=== PATIENT | female | born 1995 | race Caucasian/White ===

== ENCOUNTER → 2024-02-19 | Outpatient (CLI) | payer OTHER, SELFPAY ==
[2024-02-23 21:06] LABS: Chlamydia By Nucleic Acid AMP Negative (Negative); Gonococcus By Nucleic Acid AMP Negative (Negative)
[2024-02-29 10:06] LABS: HPV APTIMA, High Risk Negative (Negative)
== END | disposition home or self-care (01) ==
PROVIDERS: PCP Student in an Organized Health Care Education/Training Program; Referring Provider Advanced Practice Midwife; Visit Provider Advanced Practice Midwife
DX: O09.90 Supervision of high risk pregnancy, unspecified, unspecified trimester (principal); Z12.4 Encounter for screening for malignant neoplasm of cervix; Z78.9 Other specified health status; Z3A.00 Weeks of gestation of pregnancy not specified
CPT/HCPCS: 87086; 87088; 87491; 87591; 87624; 88175; G0145

== ENCOUNTER → 2024-03-19 | Outpatient (CLI) | payer OTHER, SELFPAY ==
[2024-03-19 12:37] LABS: Absolute Lymphocyte Count 1.72 X10^3/uL (0.83-4.51); Absolute Neutrophil Count 8.6 X10^3/uL (2.0-7.7); Basophil# 0.02 X10^3/uL; Basophil% 0.2 % (0-1); Eosinophil# 0.03 X10^3/uL; Eosinophils% 0.3 % (0-5); Hematocrit 38.6 % (37-47); Hemoglobin 12.7 g/dL (12.0-15.0); Lymphocyte # 1.72 X10^3/ul (0.83-4.51); Lymphocyte % 15.8 % (19-41); Mean Corp Hgb Conc 32.9 g/dL (32-36); Mean Corpuscular Volume 91.3 fL (81-99); Monocyte# 0.53 X10^3/uL; Monocyte% 4.9 % (0-10); NRBC Flagged by Analyzer 0 % (0-5); Neutrophil # 8.57 X10^3/uL (2.7-7.7); Neutrophil % 78.4 % (47-70); Platelet Count 278 K/mm3 (150-450); RBC Distribution Width CV 12.8 % (11.6-14.6); RBC Distribution Width SD 41.8 fl (35.1-43.9); Red Blood Count 4.23 M/mm3 (4.2-5.4); White Blood Count 10.9 K/mm3 (4.4-11.0)
[2024-03-19 13:47] LABS: HIV - WCH Non-Reactive (Nonreactive); Hepatitis B Surface Antigen Non-Reactive (Nonreactive); Hepatitis C Antibody Non-Reactive (Nonreactive); Rubella IgG Reactive (Nonreactive); Syphilis Antibodies Non-reactive
== END | disposition home or self-care (01) ==
LOC: BWCLAB 11:42
PROVIDERS: PCP Student in an Organized Health Care Education/Training Program; Referring Provider Advanced Practice Midwife; Visit Provider Advanced Practice Midwife
DX: O09.90 Supervision of high risk pregnancy, unspecified, unspecified trimester (principal); Z78.9 Other specified health status; Z3A.00 Weeks of gestation of pregnancy not specified

== ENCOUNTER → 2024-07-13 | Outpatient (CLI) | payer OTHER, SELFPAY ==
[2024-07-13 11:55] LABS: Absolute Lymphocyte Count 1.38 X10^3/uL (0.83-4.51); Absolute Neutrophil Count 8.8 X10^3/uL (2.0-7.7); Basophil# 0.04 X10^3/uL; Basophil% 0.3 % (0-1); Eosinophils% 0.9 % (0-5); Hematocrit 36.1 % (37-47); Hemoglobin 11.7 g/dL (12.0-15.0); Lymphocyte # 1.38 X10^3/ul (0.83-4.51); Lymphocyte % 12.1 % (19-41); Mean Corp Hgb Conc 32.4 g/dL (32-36); Mean Corpuscular Hgb 31.3 pg (27.0-32.0); Mean Corpuscular Volume 96.5 fL (81-99); Mean Platelet Vol. 10.3 fl (6.2-12.0); Monocyte# 0.85 X10^3/uL; Monocyte% 7.4 % (0-10); NRBC Flagged by Analyzer 0 % (0-5); Neutrophil # 8.81 X10^3/uL (2.7-7.7); Neutrophil % 77.1 % (47-70); Platelet Count 235 K/mm3 (150-450); RBC Distribution Width CV 13.1 % (11.6-14.6); RBC Distribution Width SD 46.5 fl (35.1-43.9); Red Blood Count 3.74 M/mm3 (4.2-5.4); White Blood Count 11.4 K/mm3 (4.4-11.0)
[2024-07-13 12:21] LABS: Glucose Challenge Gest 1H 50g 68 mg/dL (70-140); HIV Nonreactive (Nonreactive); Syphilis Antibodies Nonreactive (Nonreactive)
== END | disposition home or self-care (01) ==
PROVIDERS: Obstetrics & Gynecology; PCP Student in an Organized Health Care Education/Training Program; Referring Provider Nurse Practitioner Women's Health; Visit Provider Nurse Practitioner Women's Health
DX: O09.90 Supervision of high risk pregnancy, unspecified, unspecified trimester (principal); Z3A.00 Weeks of gestation of pregnancy not specified; Z13.1 Encounter for screening for diabetes mellitus
CPT/HCPCS: 36415; 82950; 85025; 86703; 86780

== ENCOUNTER → 2024-09-09 | Outpatient (CLI) | payer OTHER, SELFPAY | END | disposition home or self-care (01) | LOC: BWCLAB 11:18 | PROVIDERS: PCP Student in an Organized Health Care Education/Training Program; Visit Provider Obstetrics & Gynecology | DX: O09.93 Supervision of high risk pregnancy, unspecified, third trimester (principal); O26.843 Uterine size-date discrepancy, third trimester; Z3A.00 Weeks of gestation of pregnancy not specified | CPT/HCPCS: 87081; 87186 ==

== ENCOUNTER → 2024-09-13 | Outpatient (CLI) | payer OTHER, SELFPAY ==
--- NOTE | 2024-09-13 16:27 | US_ITS ---
PROCEDURE: OB LIMITED WITH BIOMETRICS 09/13/2024 REASON FOR EXAM: LARGE FOR GESTATIONAL AGE TECHNIQUE: OB LIMITED WITH BIOMETRICS COMPARISON: None FINDINGS LMP: December 26, 2023. Number: 1 Position: Vertex Placental Position: Anterior and not low-lying Placental Abnormalities: No evidence of previa. DIMENSIONS: Biparietal Diameter: 9.13 cm: 37 weeks and 0 days: 59 percentile./ Head Circumference: 33.89 cm: 39 weeks and 0 days: 63rd percentile/ Abdominal Circumference: 33.45 cm: 37 weeks and 2 days: 64 percentile/ Femur Length: 7.03 cm: 36 weeks and 0 days:/18 percentile ESTIMATED WEIGHT: 3118 g plus/-468 g ESTIMATED WEIGHT PERCENTILE (24+ weeks): 50 ESTIMATED GESTATIONAL AGE: Baseline: 37 weeks and 3 days By Ultrasound: 37 weeks and 3 days ESTIMATED DATE OF DELIVERY: Baseline: October 01, 2024 By Ultrasound: October 01, 2024 BIOPHYSICAL ASSESSMENT: Amniotic Fluid Volume: 3.5 cm Amniotic Fluid Index: 10.6 (8-24 cm normal range) Cardiac Motion: 153 beats per minute (average) Trunk and Limb Motion: Present. MATERNAL ANATOMY: Adnexa: Neither maternal ovary is successfully identified. US/OB Limited With Biometrics IMPRESSION: Single live intrauterine gestation with a mean gestational age of 37 weeks and 3 days. Reading Location: [id number]
== END | disposition home or self-care (01) ==
LOC: US 16:24
PROVIDERS: PCP Student in an Organized Health Care Education/Training Program; Referring Provider Obstetrics & Gynecology; Visit Provider Obstetrics & Gynecology
DX: O26.843 Uterine size-date discrepancy, third trimester (principal); Z3A.37 37 weeks gestation of pregnancy
CPT/HCPCS: 76816

== ENCOUNTER 2024-09-20 15:28 | Outpatient (CLI) | payer OTHER, SELFPAY ==
[2024-09-20 15:45] VITALS: BP 122/75; PULSE 95; RESP 12; TEMP 36.9; O2SAT 100
[2024-09-20 15:46] VITALS: PULSE 99; O2SAT 100
[2024-09-20 15:50] VITALS: BMI 26.9
--- NOTE | 2024-09-20 16:26 | OB.TRI.PN ---
Progress Notes Date of Service: 09/20/24 Progress Note: Patient presents for triage evaluation secondary to vaginal discharge at 38 weeks FHT: 130 Moderate variability reactive no decelerations category I tracing [place]: no Contractions Assessment and plan: ROM neg, Reactive NST, Slight cervical change from office exam last week, reassuring maternal and status patient discharged to home to follow-up in office. planned IOL for friday. See problem list details for additional plan information. Charges/Coding Multi Select Codes Visit Charges Office Visit/Consults: 85113 OV L3 Est 20min Urinary/Genital Urinary/Genital CPT Codes: 09991-86 non-stress test Interp Assessment & Plan (1) Vaginal discharge during : COMMENT: ROM neg (2) GBS (group B streptococcus) UTI complicating : COMMENT: treat in labor (3) Uterine size date discrepancy: COMMENT: 37w: EFW 50%, AC 64%. Nl (4) History of anxiety: COMMENT: stopped lexapro in November,. Stable (5) History of recurrent UTI (urinary tract infection): COMMENT: last UTI was December (6) Supervision of high-risk : QUALIFIERS: Trimester: third trimester Qualified Code(s): O09.93 - Supervision of high risk , unspecified, third trimester COMMENT: PRR, , PANKAJ 10/01/24, surprise DAVID Navarro, Sameer Joel (7) : QUALIFIERS: Weeks of gestation: 37 weeks Qualified Code(s): Z3A.37 - 37 weeks gestation of COMMENT: NIPT low risk, carrier and afp negative.
[2024-09-20 16:49] LABS: ROM Internal Control Test YES-OK TO RESULT pt. (Internal QC); ROM Patient Test Negative (Negative)
[2024-09-20 16:50] LABS: Record Kit Lot#, ROM+ K3358
== END 2024-09-20 17:05 | disposition home or self-care (01) ==
LOC: WPOUT 15:30 → WP 15:30
PROVIDERS: PCP Student in an Organized Health Care Education/Training Program; Referring Provider Advanced Practice Midwife; Visit Provider Advanced Practice Midwife
DX: O99.891 Other specified diseases and conditions complicating pregnancy (principal); N89.8 Other specified noninflammatory disorders of vagina; O99.820 Streptococcus B carrier state complicating pregnancy; O26.843 Uterine size-date discrepancy, third trimester; Z3A.38 38 weeks gestation of pregnancy
CPT/HCPCS: 59025; 59050; 84112; 99221; G0378

== ENCOUNTER 2024-09-24 01:35 | Inpatient (IN) | payer OTHER, SELFPAY ==
[2024-09-24] VITALS (55 sets, daily range): BP systolic 84–202; BP diastolic 44–139; PULSE 66–139; RESP 16–20; TEMP 36–36.6; O2SAT 82–100; BMI 26.8
--- OUTSIDE RECORDS SUMMARY | 2024-09-24 01:41 | XMS RPT_ITS | CCD ---
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 Role Phone Qamar Montana Unavailable Unavailab le QAMAR MONTANA Unavailable Unavailab le COPC JONATHAN, GENERIC Unavailable Unavailable AMEH, ONMA ADA Unavailable Unavailable QAMAR DYER AUGUST Unavailable Unavaila TYRELL Thompson Unavailable Unavailable Djiboutian, Shmuel H Unavailable Unavailable Djiboutian, Shmuel H Unavailable Unavailable Indira Edwina M Unavailable Unavailable Indira Edwina M Unavailable Unavailable Young, Blanca S Unavailable Unavailable Young, Blanca S Unavailable Unavailable Unavailable Primary Care Provider Unavaildaniel e Giselle MINERAL INDUSTRY TEACHER-Corinna MUNOZ Primary Care Provider Qamar Montana MD Primary Care Provider SUJEY DEL RIO Attending Unavailable QAMAR MONTANA Primary Care Unavailab corin Jackson MINERAL INDUSTRY TEACHER-Corinna MUNOZ Primary Care Provider CORINNA JACKSON Primary Care Unavailable SALBADOR QUINTANACY Wilber Referring Unavailable JAIMIE QUINTANA L Attending Unavailable Giselle MINERAL INDUSTRY TEACHER-Corinna MUNOZ Primary Care Provider Anil Oneal DO Primary Care Provider ANIL ONEAL A Attending Unavailable NANCIE ONEALDITH A Primary Care Unavailable CORINNA JACKSON Attending Unavailable CORINNA JACKSON Primary Care Unavailable SELF, SELF Referring Unavailable ANIL ONEAL Attending Unavailable NANCIE ONEALDITH Referring Unavailable CORINNA JACKSON Primary Care Unavailable AUNG NUNEZ Attending Unavailable CORINNA JACKSON Primary Care Unavailable SELF, SELF Referring Unavailable CORINNA JACKSON Primary Care Unavailable CORINNA JACKSON Attending Unavailable CORINNA JACKSON Referring Unavailable CORINNA JACKSON Attending Unavailable CORINNA JACKSON Referring Unavailable CORINNA JACKSON Primary Care Unavailable JAIMIE QUINTANA Attending Unavailable CORINNA JACKSON Referring Unavailable CORINNA JACKSON Primary Care Unavailable BELKYS COLORADO Attending Unavailable JAIMIE QUINTANA Referring Unavailable CORINNA JACKSON Primary Care Unavailable MARY CRAWFORD Attending Unavailab MARY Mcgraw Referring Unavailab corin AVILA PRIMARY CAREMD Primary Care Unavailable ONEAL DO, ANIL Primary Care Provider ONEAL DO, ANIL Referring Provider Dr. Mary Lundberg DO Attending Provider Zo Dyer CNM Attending Provider [phone] Zo Dyer CNM Referring Provider [phone] Estephanie MARINELLI, Dr. Jeffrey Attending Provider [place] METALSMITH APPRENTICE-C, Anila Attending Provider [phone] [place] METALSMITH APPRENTICE-C, Anila Referring Provider ONEAL DO, ANIL Primary Care Provider ONEAL DO, ANIL Referring Provider Zo Dyer CNM Attending Provider [phone] Dr. Mary Lundberg DO Attending Provider ONEAL DO, ANIL Primary Care Provider ONEAL DO, ANIL Referring Provider Dr. Mary Lundberg DO Referring Provider ONEAL DO, ANIL Primary Care Provider ONEAL DO, ANIL Referring Provider Zo Dyer CNM Attending Provider [phone] FLORENCIA ONEAL Primary Care WARREN Smith Attending WARREN Smith Admitting Zo Mccarty CNM Referring Provider [phone] Zo Dyer CNM Other Provider [phone] Estephanie MARINELLI, Dr. Jeffrey Attending Provider ONEAL, ANIL Primary Care Unavailable ONEAL, ANIL Referring Unavailable Anila Weir Attending Unavailable ONEAL, ANIL Primary Care Unavailable Zo Dyer Referring Unavailable Zo Dyer Attending Unavailable ONEAL, ANIL Primary Care Unavailable Rigo, Zo Referring Unavailable Rigo, Zo Attending Unavailable Zo Dyer Consulting Unavailable Zo Dyer Referring Unavailable Zo Dyer Attending Unavailable ONEAL, ANIL Primary Care Unavailable ONEAL, ANIL Referring Unavailable Zo Dyer Attending Unavailable ONEAL, ANIL Primary Care Unavailable ONEAL, ANIL Referring Unavailable Vande Velde, Mary Attending Unavailabl e ONEAL, ANIL Primary Care Unavailable Vande Velde, Mary Attending Unavailabl e ONEAL, ANIL Primary Care Unavailable Vande Velde, Mary Attending Unavailabl e Vande Velde, Mary Referring Unavailabl e ONEAL, ANIL Primary Care Unavailable ONEAL, ANIL Primary Care Unavailable ONEAL, ANIL Referring Unavailable Zo Dyer Attending Unavailable ONEAL, ANIL Primary Care Unavailable ONEAL, ANIL Referring Unavailable Zo Dyer Attending Unavailable Anila Weir Attending Unavailable ONEAL, ANIL Primary Care Unavailable Bianka Weiry Referring Unavailable Zo Dyer Referring Unavailable Zo Dyer Attending Unavailable ONEAL, ANIL Primary Care Unavailable ONEAL, ANIL Primary Care Unavailable Vande Velde, Mary Admitting Unavailabl e Vande Velde, Mary Referring Unavailabl e Vande Velde, Mary Attending Unavailabl e Vande Velde, Mary Attending Unavailabl e ONEAL, ANIL Primary Care Unavailable ONEAL, ANIL Referring Unavailable Vande Velde, Mary Attending Unavailabl e ONEAL, ANIL Primary Care Unavailable ONEAL, ANIL Referring Unavailable Vande Velde, Mary Attending Unavailabl e ONEAL, ANIL Primary Care Unavailable ONEAL, ANIL Referring Unavailable ONEAL, ANIL Referring Unavailable ONEAL, ANIL Primary Care Unavailable Rachele Hummel Attending Unavailable ONEAL, ANIL Primary Care Unavailable ONEAL, ANIL Referring Unavailable Vande Velde, Mary Attending Unavailabl e ONEAL, ANIL Primary Care Unavailable ONEAL, ANIL Referring Unavailable Rachele Hummel Attending Unavailable ONEAL, ANIL Primary Care Unavailable ANIL ONEAL Referring Unavailable Zo Dyer Attending Unavailable ANIL ONEAL Referring Unavailable ANIL ONEAL Primary Care Unavailable Zo Dyer Attending Unavailable Allergies Allergy Classification Reported Allergen(s) Allergy Type Date of Onset Reaction(s) Facility (15 sources) amoxicillin / clavulanate; Translations: [AMOXICILLIN-POT CLAVULANATE] Drug Allergy 05-02-2016 [facility] Work Phone: Medications Current Medications Medication Drug Class(es) Dates Sig (Normalized) Sig (Original) acetaminophen 325 mg / oxyCODONE hydrochloride 5 mg oral tablet (2 sources) Opioid Agonist Start: 01-23-2017 End: 01-30-2017 take 1 tablet by mouth every six hours oxyCODONE-acetami nophen (PERCOCET) 5-325 mg per tablet Take 1 (one) tablet by mouth every 6 (six) hours as needed for pain. 10 tablet 0 01/23/2017 01/30/2017 Active Start: 01-22-2017 End: 01-22-2017 take 1 tablet by mouth once, then take 1 tablet by mouth oxyCODONE-acetaminophen (PERCOCET) 5-325 mg per tablet 1 tablet 1 tablet, Oral, Once, 01/22/17 at 2000, For 1 dose Given 01/22/2017 20:03 EST 1 tablet Breast Pump device (11 sources) Start: 05-24-2024 Breast Pump de vice Active 0 .Route 1 0 May 24, 2024 12:00am As directed Start: 05-24-2024 Breast Pump de vice Active 0 .Route 1 May 24, 2024 12:00am As directed doxycycline hyclate 100 mg oral capsule (2 sources) Tetracycline-class Drug take 1 capsule by mouth twice daily doxycycline hyclate (VIBRAMYCIN) 100 MG capsule Take 100 mg by mouth 2 (two) times a day. 0 Active escitalopram 10 mg oral tablet (11 sources) Serotonin Reuptake Inhibitor Start: take 1 tablet by mouth once daily Escitalopram (Lexapro) 10 MG tablet Indications: Anxiety disorder, unspecified type Take 1 tablet by mouth daily. 30 tablet 11/20/2023 Active Start: 03-18-2023 End: 03-26-2023 take 1 tablet by mouth once daily Escitalopram (Lexapro) 10 MG tablet Indications: Anxiety disorder, unspecified type Take 1 tablet by mouth daily. 90 tablet 1 03/26/2023 Active Start: 10-23-2021 End: 12-07-2021 take 1 tablet by mouth once daily escitalopram oxalate (LEXAPRO) 10 MG tablet Take 1 (one) tablet (10 mg total) by mouth daily . 0 12/07/2021 Active nitrofurantoin, macrocrystals 25 mg / nitrofurantoin, monohydrate 75 mg oral capsule (1 source) Nitrofuran Antibacterial Start: 10-30-2022 End: 11-06-2022 take 1 capsule by mouth twice daily nitrofurantoin, macrocrystal-monohydrate, (Macrobid) 100 MG capsule Indications: Acute cystitis with hematuria Take 1 (one) capsule (100 mg total) by mouth 2 (two) times a day for 7 days . 14 capsule 0 10/30/2022 11/06/2022 Active Pnv No.[id number]-Rj-[id number]-Dha-E pa-Fish 400 mcg-35 mg- 25 mg-5 mg tablet,chewable (11 sources) Start: 02-06-2024 Pnv No.116-Hq-Gp3-Gwe-Gce-Kujc 400 mcg-35 mg- 25 mg-5 mg tablet,chewable Active {tbl} PO February 06, 2024 1:00am no115/iron/folic acid ( 19 ORAL) (1 source) take 1 tablet by mouth twice daily no115/iron/folic acid ( 19 ORAL) Take 1 tablet by mouth 2 times a day. Active Vit-Fe Fumarate-FA ( VITAMINS PO) (1 source) take 1 tablet by mouth twice daily Vit-Fe Fumarate-FA ( VITAMINS PO) Take 1 tablet by mouth Twice daily. Active sulfamethoxazole 800 mg / trimethoprim 160 mg oral tablet (1 source) Dihydrofolate Reductase Inhibitor Antibacterial, Sulfonamide Antimicrobial Start: 01-23-2017 End: 01-30-2017 take 1 tablet by mouth twice daily sulfamethoxazole-trimethopr im (BACTRIM DS,SEPTRA DS) 800-160 mg per tablet Take 1 (one) tablet by mouth 2 (two) times a day for 7 days. 14 tablet 0 01/23/2017 01/30/2017 Active Completed/Discontinued Medications Medication Drug Class(es) Dates Sig (Normalized) Sig (Original) dicyclomine hydrochloride 10 mg oral capsule (1 source) Anticholinergic End: 01-22-2017 take 1 capsule by mouth four times daily before mealtime dicyclomine (BENTYL) 10 MG capsule Take 10 mg by mouth 4 (four) times a day before meals and nightly. 01/22/2017 Discontinued hydrOXYzine hydrochloride 25 mg oral tablet (3 sources) Antihistamine Start: 10-23-2021 End: 03-26-2023 take 1 tablet by mouth three times daily as needed for anxiety hydrOXYzine HCl 25 MG tablet Indications: Anxiety disorder, unspecified type , Sleep disturbances Take 1 tablet by mouth 3 times daily as needed for Anxiety or Insomnia. 60 tablet 0 10/23/2021 03/26/2023 Discontinued (Patient Preference) hyoscyamine sulfate 0.125 mg oral tablet (1 source) End: 01-22-2017 take 1 tablet by mouth every four hours hyoscyamine (LEVSIN) 0.125 mg tablet Take 0.125 mg by mouth every 4 (four) hours as needed for cramping. 01/22/2017 Discontinued ibuprofen 800 mg oral tablet (2 sources) Nonsteroidal Anti-inflammatory Drug Start: 12-01-2020 End: 10-23-2021 take 1 tablet by mouth every six hours as needed ibuprofen 800 MG tablet Take 1 tablet by mouth every 6 hours as needed for Moderate Pain. 30 tablet 0 12/01/2020 10/23/2021 Discontinued (Patient Preference) Start: 01-22-2017 End: 01-23-2017 take 2 tablets by mouth every six hours ibuprofen (ADVIL,MOTRIN) tablet 800 mg 800 mg, Oral, Every 6 hours PRN, fever 100.4 F or greater, headaches, mild pain, Starting Fri01/22/17 at 2219, Give with Food Do Not Crush or Chew if administering orally due to bitter taste. May be crushed if given via tube. Given 01/23/2017 00:04 EST 800 mg naproxen 500 mg oral tablet (1 source) Nonsteroidal Anti-inflammatory Drug End: 01-22-2017 take 1 tablet by mouth twice daily at mealtime naproxen (NAPROSYN) 500 MG tablet Take 500 mg by mouth 2 (two) times a day with meals. 01/22/2017 Discontinued ondansetron 4 mg disintegrating oral tablet (1 source) Serotonin-3 Receptor Antagonist End: 01-22-2017 take 1 tablet by mouth every eight hours ondansetron (ZOFRAN-ODT) 4 MG disintegrating tablet Dissolve 4 mg on top of tongue every 8 (eight) hours as needed for nausea. 01/22/2017 Discontinued Vit-Fe Fumarate-FA ( VITAMIN PO) (4 sources) End: 12-07-2021 Vit-Fe Fumarate-FA ( VITAMIN PO) Take by mouth. Two gummies by mouth daily 0 12/07/2021 Discontinued (Therapy completed) Vit-Fe Fumarate-FA ( VITAMIN PO) Take by mouth. Two gummies by mouth daily 0 Active 200 ml vancomycin 5 mg/ml injection (2 sources) Glycopeptide Antibacterial Start: 01-23-2017 End: 01-23-2017 take 1000 mg intravenous route every twelve hours vancomycin (VANCOCIN) IVPB 1000 mg (premix) 1,000 mg, Intravenous, at 200 mL/hr, Every 12 hours, First dose on Fri01/23/17 at 0800, Indication: OTHER New Bag 01/23/2017 08:22 EST 1,000 mg 200 mL/hr Start: 01-22-2017 End: 01-23-2017 take 1000 mg intravenous route every hour vancomycin (VANCOCIN) IVPB 1000 mg (premix) 1,000 mg, Intravenous, at 200 mL/hr, Once, Fri01/22/17 at 1935, For 1 dose, Indication: Cellulitis Not Responding to Beta-lactams New Bag 01/22/2017 19:49 EST 1,000 mg 200 mL/hr Problems Active Problems Problem Classification Problem Date Documented Date Episodic/Chronic Anxiety disorders (5 sources) Anxiety disorder; Translations: [Anxiety disorder, unspecified] Onset: 02-22-2024 Chronic Bacterial infection; unspecified site (2 sources) Streptococcus, group B, as the cause of diseases classified elsewhere; Translations: [Streptococcus, group B, as the cause of diseases classified elsewhere] Onset: 09-20-2024 Episodic Cardiac dysrhythmias (8 sources) Palpitations; Translations: [Palpitations] Onset: 02-20-2024 02-20-2024 Episodic Fever of unknown origin (3 sources) Fever; Translations: [Fever, unspecified] Onset: 03-03-2024 03-03-2024 Episodic Genitourinary symptoms and ill-defined conditions (20 sources) Urinary symptoms ; Translations: [Unspecified symptoms and signs involving the genitourinary system] Onset: 10-30-2022 10-30-2022 Episodic Comment on above: last UTI was December Immunizations and screening for infectious disease (4 sources) Patient encounter status; Translations: [Encounter for immunization] Onset: 02-20-2024 02-22-2024 Episodic Nausea and vomiting (5 sources) Hyperemesis; Translations: [Intractable nausea and vomiting] Onset: 05-03-2016 05-03-2016 Episodic Other and unspecified benign neoplasm (1 source) Change in skin lesion; Translations: [Melanocytic nevi, unspecified] 09-09-2023 Episodic Other complications of (20 sources) High risk ; Translations: [Supervision of high risk , unspecified, unspecified trimester] 07-13-2024 Episodic Comment on above: PRR, , FRANCOISE /03/04 5, surprise PC Melanie, Sameer Joel Other complications of (13 sources) Uterine size for dates discrepancy; Translations: [Uterine size-date discrepancy, unspecified trimester] 09-09-2024 Episodic Comment on above: 37w: EFW 50%, AC 64% . Nl Other complications of (12 sources) Urinary tract infection in ; Translations: [Unspecified infection of urinary tract in , unspecified trimester] 09-13-2024 Episodic Comment on above: treat in labor Other complications of (5 sources) Vaginal discharge; Translations: [Other specified related conditions, unspecified trimester] 09-20-2024 Episodic Comment on above: ROM neg Other complications of (2 sources) Supervision of high risk , unspecified, third trimester; Translations: [Supervision of high risk , unspecified, third trimester] Onset: 09-20-2024 Episodic Other complications of (2 sources) Uterine size-date discrepancy, unspecified trimester; Translations: [Uterine size-date discrepancy, unspecified trimester] Onset: 09-20-2024 Episodic Other complications of (2 sources) Other specified related conditions, unspecified trimester; Translations: [Other specified related conditions, unspecified trimester] Onset: 09-20-2024 Episodic Other complications of (2 sources) Unspecified infection of urinary tract in , unspecified trimester; Translations: [Unspecified infection of urinary tract in , unspecified trimester] Onset: 09-20-2024 Episodic Other complications of (1 source) Supervision of high risk , unspecified, unspecified trimester; Translations: [Supervision of high risk , unspecified, unspecified trimester] Onset: 07-21-2024 Episodic Other female genital disorders (2 sources) Other specified noninflammatory disorders of vagina; Translations: [Other specified noninflammatory disorders of vagina] Onset: 09-20-2024 Episodic Other skin disorders (2 sources) Skin lesion; Translations: [Disorder of the skin and subcutaneous tissue, unspecified] Onset: 02-22-2024 02-22-2024 Episodic Other upper respiratory infections (3 sources) Pharyngitis; Translations: [Acute pharyngitis, unspecified] Onset: 03-03-2024 03-03-2024 Episodic Residual codes; unclassified (2 sources) Disturbance in sleep behavior; Translations: [Sleep disorder, unspecified] Episodic Residual codes; unclassified (2 sources) Gestation period, 8 weeks; Translations: [8 weeks gestation of ] Onset: 02-22-2024 02-22-2024 Episodic Residual codes; unclassified (12 sources) Immunization status unknown; Translations: [Other specified health status] 04-14-2024 Episodic Comment on above: vaccinated Residual codes; unclassified (1 source) 38 weeks gestation of ; Translations: [38 weeks gestation of ] Onset: 09-23-2024 Episodic Residual codes; unclassified (2 sources) 37 weeks gestation of ; Translations: [37 weeks gestation of ] Onset: 09-20-2024 Episodic Residual codes; unclassified (1 source) 36 weeks gestation of ; Translations: [36 weeks gestation of ] Onset: 09-09-2024 Episodic Residual codes; unclassified (1 source) 34 weeks gestation of ; Translations: [34 weeks gestation of ] Onset: 08-23-2024 Episodic Residual codes; unclassified (1 source) 32 weeks gestation of ; Translations: [32 weeks gestation of ] Onset: 08-12-2024 Episodic Residual codes; unclassified (1 source) 30 weeks gestation of ; Translations: [30 weeks gestation of ] Onset: 07-29-2024 Episodic Residual codes; unclassified (1 source) 28 weeks gestation of ; Translations: [28 weeks gestation of ] Onset: 07-13-2024 Episodic Screening and history of mental health and substance abuse codes (20 sources) H/O: anxiety state; Translations: [Personal history of other mental and behavioral disorders] Onset: 09-20-2024 07-13-2024 Episodic Comment on above: stopped lexapro in S eptember,. Stable Past or Other Problems Problem Classification Problem Date Documented Da te Episodic/Chronic Abdominal pain (10 sources) Generalized abdominal pain; Translations: [Unspecified abdominal pain] Onset: 05-03-2016 05-03-2016 Episodic Mood disorders (8 sources) Mood disorders Onset: 10-23-2021 Resolved: 10-23-2021 10-23-2021 Other and unspecified benign neoplasm (2 sources) Melanocytic nevi, unspecified; Translations: [Melanocytic nevi, unspecified] Onset: 09-09-2023 Episodic Other complications of ; puerperium affecting management of mother (8 sources) Delivery finding; Translations: [Complication of labor and delivery, unspecified] Onset: 11-29-2020 Resolved: 12-01-2020 12-01-2020 Episodic Other and delivery including normal (20 sources) Normal ; Translations: [Encounter for supervision of normal , unspecified, third trimester] Onset: 11-29-2020 Resolved: 10-23-2021 Episodic Comment on above: NIPT low risk, rachell er and afp negative. Other upper respiratory disease (2 sources) Abscess of nose; Translations: [Abscess, furuncle and carbuncle of nose] Onset: 01-22-2017 01-23-2017 Episodic Residual codes; unclassified (1 source) 12 weeks gestation of ; Translations: [12 weeks gestation of ] Onset: 03-19-2024 Episodic Residual codes; unclassified (1 source) Other specified health status; Translations: [Other specified health status] Onset: 03-19-2024 Episodic Residual codes; unclassified (1 source) Less than 8 weeks gestation of ; Translations: [Less than 8 weeks gestation of ] Onset: 02-19-2024 Episodic Skin and subcutaneous tissue infections (3 sources) Abscess; Translations: [Cutaneous abscess, unspecified] Onset: 01-22-2017 Episodic Unclassified (1 source) Decreased Movement Onset: 09-11-2024 Urinary tract infections (9 sources) Acute cystitis; Translations: [Acute cystitis with hematuria] Onset: 10-30-2022 10-30-2022 Episodic NEGATED: Highlighted row has been ruled out!Unclassified (2 sources) No known active problems 10-24-2020 Results Test Name Value Interpretation Reference Range Facility [facility] Office Visit Reporton 09-23-2024 [facility] Office Visit Report [facility] [address], [address] [place] [address] OFFICE VISIT Date of Service: 09/23/24 MR#: [id number] Acct: [id number] Name: AKOSUA NUNEZ Rep #: [id number] : 1995 Provider: Dr. Rachele cruz MD Age/Sex: 29/F Location: [facility] Status: Signed Intake Vital Signs 08/12/24 10:40 09/20/24 15:50 09/23/24 10:49 Height 5 ft 5 in 5 ft 5 in 5 ft 5 in Weight: 161 lb 8 oz BMI 26.9 BP 130/79 H Intake Visit Reasons: 38 WK OB Web Worker Required: No Is patient in pain?: No Allergies No Known Allergies Allergy (Verified 09/23/24 10:50) Medications ???Medication ???Instructions ???Recorded ???Confirmed ???Type PNV 153-FA 400 mcg-om3 35 mg-dha tab PO 02/06/24 09/23/24 History 25 mg-epa 5 mg-fish oil chew tablet breast pump #1 ea 05/24/24 09/23/24 Rx Last Menstrual Period: 12/26/23 Zika: Zika virus screening: Negative : No PFSH PFSH Surgical History H/O cystoscopy H/O breast augmentation Family History Grandfather Cancer Maternal- unsure what kind Heart disease Pacemaker- Maternal Mother Mitral valve disease Grandmother Mitral valve disease Maternal Social History adopted: No household members: spouse and children number of children: 2 current occupational status: employed 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 occupational exposures/hazards: No pets and animals: Yes pets and animals: dog(s) history of recent travel: No sexually active: Yes Smoking Status: Never smoker alcohol intake: never substance use type: does not use well-balanced diet: daily or most days caffeine: Yes Type: coffee Number of servings: 1 eating out: rarely or never during the past year weight has: remained stable what type of physical activity do you participate in: none kvng/church: [employer] seatbelt use: always do you feel safe at home: Yes 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 Date Name GA/Weeks Outcome Route Bth Weight Gen Labor Lgth Anesthesia Del Locatn Provider FOB 01/06/18 Melanie 40 live - full term 6#13oz Female none [facility] Dr. Edwina Maldonado 11/29/20 Sameer 38 live - full term 6#10oz Male epidural [facility] Dr. Devante Maldonado HPI 38 WK OB Details: AKOSUA NUNEZ is a 29 year old who presents for routine OB visit. OB Visit FRANCOISE Calculator Estimated Delivery Date Method Current WG Current Estimate 10/01/24 LMP (Certain) 38w 6d Expected Delivery Route/Plan Labor Preferences- CB/BF classes: no labor support person: Joel labor intervention preferences: [] pain management options preferred: limited cut cord/dad catch: yes : yes PP control planned: discussed discussed possible routes of delivery and associated risks: [] special requests: [] Specific Issue/Plans Covid status: [] Flu vaccine: [] Tdap vaccine: given Rhogam: NA LARC form signed: Yes Problem list reviewed and updated with the most current plan of care details and appropriate orders placed. Relevant counseling for the gestational age provided. Continue routine care and follow up unless otherwise noted in visit notes/problem list details Initial Weight: 131 lb Date -???-???-???-???-???- ???-???-???-???-???-? ??-???- EGA Weight BP Urine Prot -???-???-???-???-???- ???-???-???-???-???-? ??-???- Glucose FHR FuHt Pres Dilation -???-???-???-???-???- ???-???-???-???-???-? ??-???- Effaced St Visit Note 02/19/24 -???-???-???-???-???- ???-???-???-???-???-? ??-???- 7w 6d 131 lb (+0 oz) 83/63 -???-???-???-???-???- ???-???-???-???-???-? ??-???- 161 -???-???-???-???-???- ???-???-???-???-???-? ??-???- KW- CRL cons with dates. small MAMADOU noted. desires NIPT. 03/19/24 -???-???-???-???-???- ???-???-???-???-???-? ??-???- 12w 0d 135 lb (+4 lb) 121/75 Negative -???-???-???-???-???- ???-???-???-???-???-? ??-???- Negative 163 -???-???-???-???-???- ???-???-???-???-???-? ??-???- JV- CRL stil l consistent with LMP. plans to do NIPT today. does not want to know gender. 04/14/24 -???-???-???-???-???- ???-???-???-???-???-? ??-???- 15w 5d 136 lb 8 oz (+5 lb 8 oz) 115/76 Negative -???-???-???-???-???- ???-???-???-???-???-? ??-???- Negative 145 -???-???-???-???-???- ???-???-???-???-???-? ??-???- SM- no vb cr amping 05/17/24 -???-???-???-??? (more content not included)... Normal [facility] ([facility]) Rupture Of Membraneson 09-20-2024 ROM Negative Normal Negative [facility] Comment on above: Result Comment: Amni otic fluid not present indicates No Rupture of Membranes at time of specimen collection. Performed By: #### L 205.1000 ####[facility] [id number] [facility] [place], [address] OB Triage Progress Noteon OB Triage Progress Note [facility] Medical Records Department [address] [place] [address] OB Triage Progress Note 09/20/24 1626 MR#: [id number] Acct: [id number] Name: AKOSUA NUNEZ Rep #: [id number] : 1995 29 From: Zo Dyer CNM PCP: ANIL ONEAL DO Status:DEP CLI Y DOS: Location: WPOUT Progress Notes Date of Service: 09/20/24 Progress Note: Patient presents for triage evaluation secondary to vaginal discharge at 38 weeks FHT: 130 Moderate variability reactive no decelerations category I tracing Shubuta: no Contractions Assessment and plan: ROM neg, Reactive NST, Slight cervical change from office exam last week, reassuring maternal and status patient discharged to home to follow-up in office. planned IOL for friday. See problem list details for additional plan information. Charges/Coding Multi Select Codes Visit Charges Office Visit/Consults: 30696 OV L3 Est 20min Urinary/Genital Urinary/Genital CPT Codes: 04478-38 non-stress test Interp Assessment Plan (1) Vaginal discharge during : COMMENT: ROM neg (2) GBS (group B streptococcus) UTI complicating : COMMENT: treat in labor (3) Uterine size date discrepancy: COMMENT: 37w: EFW 50%, AC 64%. Nl (4) History of anxiety: COMMENT: stopped lexapro in November,. Stable (5) History of recurrent UTI (urinary tract infection): COMMENT: last UTI was December (6) Supervision of high-risk : QUALIFIERS: Trimester: third trimester Qualified Code(s): O09.93 - Supervision of high risk , unspecified, third trimester COMMENT: PRR, , FRANCOISE 10/01/24, surprise PC Melanie, Sameer Joel (7) : QUALIFIERS: Weeks of gestation: 37 weeks Qualified Code(s): Z3A.37 - 37 weeks gestation of COMMENT: NIPT low risk, carrier and afp negative. 09/20/24 1706 Date Zo Dyer CNM Cosigner Signature (if applicable): Date CC: DAVID Dyer; ANIL ONEAL DO Signed [facility] - Chemistry and C hemistry - challengeOrdered By: Mary Carreno on 09-16-2024 Glucose Ql (U) Negative [facility] - UrinalysisOrder ed By: Mary Carreno on 09-16-2024 Protein Ql (U) Negative [facility] [employer] Office Visit Reporton 09-16-2024 [employer] Office Visit Report [facility] [address], [address] [place] [address] OFFICE VISIT Date of Service: 09/16/24 MR#: [id number] Acct: [id number] Name: AKOSUA NUNEZ Rep #: [id number] : 1995 Provider: Dr. Mary Brown DO Age/Sex: 29/F Location: [facility] Status: Signed Intake Vital Signs 08/12/24 10:40 09/09/24 10:23 09/16/24 10:46 Height 5 ft 5 in 5 ft 5 in 5 ft 5 in Weight: 161 lb 2 oz BMI 26.8 BP 128/80 H Intake Visit Reasons: 37 WK OB Chief Complaint: 37wk OB Web Worker Required: No Is patient in pain?: No Allergies No Known Allergies Allergy (Verified 09/16/24 10:45) Medications ???Medication ???Instructions ???Recorded ???Confirmed ???Type PNV 153-FA 400 mcg-om3 35 mg-dha tab PO 02/06/24 09/16/24 History 25 mg-epa 5 mg-fish oil chew tablet breast pump #1 ea 05/24/24 09/16/24 Rx Last Menstrual Period: 12/26/23 : No PFSH PFSH Surgical History H/O cystoscopy H/O breast augmentation Family History Grandfather Cancer Maternal- unsure what kind Heart disease Pacemaker- Maternal Mother Mitral valve disease Grandmother Mitral valve disease Maternal Social History adopted: No household members: spouse and children number of children: 2 current occupational status: employed 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 occupational exposures/hazards: No pets and animals: Yes pets and animals: dog(s) history of recent travel: No sexually active: Yes Smoking Status: Never smoker alcohol intake: never substance use type: does not use well-balanced diet: daily or most days caffeine: Yes Type: coffee Number of servings: 1 eating out: rarely or never during the past year weight has: remained stable what type of physical activity do you participate in: none kvng/church: [employer] seatbelt use: always do you feel safe at home: Yes 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 Date Name GA/Weeks Outcome Route Bth Weight Infant Gen Labor Lgth Anesthesia Del Locatn Provider FOB 01/06/18 Melanie 40 live - full term 6#13oz Female none [facility] Dr. Edwina Adkins Joel 11/29/20 Sameer 38 live - full term 6#10oz Male epidural [facility] Dr. Devante Maldonado HPI 37 WK OB Details: AKOSUA NUNEZ is a 29 year old who presents for routine OB visit. OB Visit FRANCOISE Calculator Estimated Delivery Date Method Current WG Current Estimate 10/01/24 LMP (Certain) 37w 6d Expected Delivery Route/Plan Labor Preferences- CB/BF classes: no labor support person: Joel labor intervention preferences: [] pain management options preferred: limited cut cord/dad catch: yes : yes PP control planned: discussed discussed possible routes of delivery and associated risks: [] special requests: [] Specific Issue/Plans Covid status: [] Flu vaccine: [] Tdap vaccine: given Rhogam: NA LARC form signed: Yes Problem list reviewed and updated with the most current plan of care details and appropriate orders placed. Relevant counseling for the gestational age provided. Continue routine care and follow up unless otherwise noted in visit notes/problem list details Initial Weight: 131 lb Date -???-???-???-???-???- ???-???-???-???-???-? ??-???- EGA Weight BP Urine Prot -???-???-???-???-???- ???-???-???-???-???-? ??-???- Glucose FHR FuHt Pres Dilation -???-???-???-???-???- ???-???-???-???-???-? ??-???- Effaced St Visit Note 02/19/24 -???-???-???-???-???- ???-???-???-???-???-? ??-???- 7w 6d 131 lb (+0 oz) 83/63 -???-???-???-???-???- ???-???-???-???-???-? ??-???- 161 -???-???-???-???-???- ???-???-???-???-???-? ??-???- KW- CRL cons with dates. small MAMADOU noted. desires NIPT. 03/19/24 -???-???-???-???-???- ???-???-???-???-???-? ??-???- 12w 0d 135 lb (+4 lb) 121/75 Negative -???-???-???-???-???- ???-???-???-???-???-? ??-???- Negative 163 -???-???-???-???-???- ???-???-???-???-???-? ??-???- JV- CRL stil l consistent with LMP. plans to do NIPT today. does not want to know gender. 04/14/24 -???-???-???-???-???- ???-???-???-???-???-? ??-???- 15w 5d 136 lb 8 oz (+5 lb 8 oz) 115/76 Negative -???-???-???-???-???- ???-???-???-???-???-? ??-???- Negative 145 -???-???-???-???-???- ???-???-???-???-???-? ??-???- SM- no vb cr amping 05/17/24 -???-???-???-???-???- ???-???-???-?? (more content not included)... [facility] OB Limited With Biometricson 09-13-2024 OB Limited With Biometrics [facility] Imaging Services [address] [place], [place] [id number] OB Limited With Biometrics MR#: [id number] Acct: [id number] Name: AKOSUA NUNEZ Rep #: [id number] : 1995 F 29 From: Yuniel hyde MD PCP: ANIL ONEAL DO Status: [facility] Study: OB Limited With Biometrics Date of Exam: 09/13 Exam# [id number] Ordering Dr: Mary Lundberg DO PROCEDURE: OB LIMITED WITH BIOMETRICS 09/13/2024 REASON FOR EXAM: LARGE FOR GESTATIONAL AGE TECHNIQUE: OB LIMITED WITH BIOMETRICS COMPARISON: None FINDINGS LMP: December 26, 2023. Number: 1 Position: Vertex Placental Position: Anterior and not low-lying Placental Abnormalities: No evidence of previa. DIMENSIONS: Biparietal Diameter: 9.13 cm: 37 weeks and 0 days: 59 percentile./ Head Circumference: 33.89 cm: 39 weeks and 0 days: 63rd percentile/ Abdominal Circumference: 33.45 cm: 37 weeks and 2 days: 64 percentile/ Femur Length: 7.03 cm: 36 weeks and 0 days:/18 percentile ESTIMATED WEIGHT: 3118 g plus/-468 g ESTIMATED WEIGHT PERCENTILE (24+ weeks): 50 ESTIMATED GESTATIONAL AGE: Baseline: 37 weeks and 3 days By Ultrasound: 37 weeks and 3 days ESTIMATED DATE OF DELIVERY: Baseline: October 01, 2024 By Ultrasound: October 01, 2024 BIOPHYSICAL ASSESSMENT: Amniotic Fluid Volume: 3.5 cm Amniotic Fluid Index: 10.6 (8-24 cm normal range) Cardiac Motion: 153 beats per minute (average) Trunk and Limb Motion: Present. MATERNAL ANATOMY: Adnexa: Neither maternal ovary is successfully identified. US/OB Limited With Biometrics IMPRESSION: Single live intrauterine gestation with a mean gestational age of 37 weeks and 3 days. Reading Location: [id number] CC: Dr. 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 B) on 09-13-2024 REBECCA Rule out Beta Strep (Grp. B) Streptococcus agalactiae (B) Amount Growth 3+ Streptococcus agalactiae (B): REACTION Ampicillin Islt NOEL <=0.25 cefTRIAXone Islt NOEL <=0.12 S Clindamycin Islt NOEL <=0.25 S Clindamycin.induced Susc Islt NEG Linezolid Islt NOEL <=2 S Vancomycin Islt NOEL 0.5 S [facility] Comment on above: Performed By: #### M 100.3409 ####[facility] [id number] [place], [place], [address] Laboratory - Chemistry and C hemistry - challengeOrdered By: Mary Carreno on 09-09-2024 Glucose Ql (U) Negative [facility] - UrinalysisOrder ed By: Mary Carreno on 09-09-2024 Protein Ql (U) Negative [facility] [employer] Office Visit Reporton 09-09-2024 [employer] Office Visit Report [facility] [address], [address] [place] [address] OFFICE VISIT Date of Service: 09/09/24 MR#: [id number] Acct: [id number] Name: AKOSUA NUNEZ Rep #: [id number] : 1995 Provider: Dr. Mary Brown DO Age/Sex: 29/F [facility] Status: Signed Intake Vital Signs 07/13/24 09:12 08/23/24 09:29 09/09/24 10:19 09/09/24 10:23 Height 5 ft 5 in 5 ft 5 in 5 ft 5 in 5 ft 5 in Weight: 162 lb BMI 26.9 BP 118/81 H Intake Visit Reasons: 36wk ob Web Worker Required: No Is patient in pain?: No Allergies No Known Allergies Allergy (Verified 09/09/24 10:19) Medications ???Medication ???Instructions ???Recorded ???Confirmed ???Type PNV 153-FA 400 mcg-om3 35 mg-dha tab PO 02/06/24 09/09/24 History 25 mg-epa 5 mg-fish oil chew tablet breast pump #1 ea 05/24/24 09/09/24 Rx Last Menstrual Period: 12/26/23 Zika: Zika virus screening: Negative : No PFSH PFSH Surgical History H/O cystoscopy H/O breast augmentation Family History Grandfather Cancer Maternal- unsure what kind Heart disease Pacemaker- Maternal Mother Mitral valve disease Grandmother Mitral valve disease Maternal Social History adopted: No household members: spouse and children number of children: 2 current occupational status: employed 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 occupational exposures/hazards: No pets and animals: Yes pets and animals: dog(s) history of recent travel: No sexually active: Yes Smoking Status: Never smoker alcohol intake: never substance use type: does not use well-balanced diet: daily or most days caffeine: Yes Type: coffee Number of servings: 1 eating out: rarely or never during the past year weight has: remained stable what type of physical activity do you participate in: none kvng/church: [employer] seatbelt use: always do you feel safe at home: Yes 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 Date Name GA/Weeks Outcome Route Bth Weight Gen Labor Lgth Anesthesia Del Locatn Provider FOB 11/06/18 Melanie 40 live - full term 6#13oz Female none [facility] Dr. Edwina Maldonado 11/29/20 Sameer 38 live - full term 6#10oz Male epidural [facility] [place] [facility]. Devante Maldonado HPI 36wk ob Details: AKOSUA NUNEZ is a 29 year old who presents for routine OB visit. OB Visit FRANCOISE Calculator Estimated Delivery Date Method Current WG Current Estimate 10/01/24 LMP (Certain) 36w 6d Expected Delivery Route/Plan Labor Preferences- CB/BF classes: no labor support person: Joel labor intervention preferences: [] pain management options preferred: limited cut cord/dad catch: yes : yes PP control planned: discussed discussed possible routes of delivery and associated risks: [] special requests: [] Specific Issue/Plans Covid status: [] Flu vaccine: [] Tdap vaccine: given Rhogam: NA LARC form signed: Yes Problem list reviewed and updated with the most current plan of care details and appropriate orders placed. Relevant counseling for the gestational age provided. Continue routine care and follow up unless otherwise noted in visit notes/problem list details Initial Weight: 131 lb Date -???-???-???-???-???- ???-???-???-???-???-? ??-???- EGA Weight BP Urine Prot -???-???-???-???-???- ???-???-???-???-???-? ??-???- Glucose FHR FuHt Pres Dilation -???-???-???-???-???- ???-???-???-???-???-? ??-???- Effaced St Visit Note 02/19/24 -???-???-???-???-???- ???-???-???-???-???-? ??-???- 7w 6d 131 lb (+0 oz) 83/63 -???-???-???-???-???- ???-???-???-???-???-? ??-???- 161 -???-???-???-???-???- ???-???-???-???-???-? ??-???- KW- CRL cons with dates. small MAMADOU noted. desires NIPT. 03/19/24 -???-???-???-???-???- ???-???-???-???-???-? ??-???- 12w 0d 135 lb (+4 lb) 121/75 Negative -???-???-???-???-???- ???-???-???-???-???-? ??-???- Negative 163 -???-???-???-???-???- ???-???-???-???-???-? ??-???- JV- CRL stil l consistent with LMP. plans to do NIPT today. does not want to know gender. 04/14/24 -???-???-???-???-???- ???-???-???-???-???-? ??-???- 15w 5d 136 lb 8 oz (+5 lb 8 oz) 115/76 Negative -???-???-???-???-???- ???-???-???-???-???-? ??-???- Negative 145 -???-???-???-???-???- ???-???-???-???-???-? ??-???- SM- no vb cr amping 05/17 (more content not included)... [facility] Screening beta-hemolytic Str eptococcus cultureOrdered By: Mary Carreno on 09-09-2024 Beta-hemolytic Streptococcus culture Streptococcus agalactiae (B) Abnormal [facility] - Chemistry and C hemistry - challengeOrdered By: Mary Carreno on 08-23-2024 Glucose Ql (U) Negative [facility] - UrinalysisOrder ed By: Mary Carreno on 08-23-2024 Protein Ql (U) Negative [facility] [employer] Office Visit Reporton 08-23-2024 D[employer]ger Office Visit Report [facility] [address], [address] [place] [address] OFFICE VISIT Date of Service: 08/23/24 MR#: [id number] Acct: [id number] Name: AKOSUA NUNEZ Rep #: [id number] : 1995 Provider: Dr. Mary Brown DO Age/Sex: 29/F Location: [facility] Status: Signed Intake Vital Signs 07/13/24 08:36 07/13/24 09:12 08/12/24 10:40 08/23/24 09:29 08/23/24 09:29 Height 5 ft 5 in 5 ft 5 in 5 ft 5 in 5 ft 5 in 5 ft 5 in Weight: 161 lb 2 oz BMI 26.8 BP 117/77 Intake Visit Reasons: 34wk ob Web Worker Required: No Is patient in pain?: No Allergies No Known Allergies Allergy (Verified 08/23/24 09:29) Medications ???Medication ???Instructions ???Recorded ???Confirmed ???Type PNV 153-FA 400 mcg-om3 35 mg-dha tab PO 02/06/24 08/23/24 History 25 mg-epa 5 mg-fish oil chew tablet breast pump #1 ea 05/24/24 08/23/24 Rx Last Menstrual Period: 12/26/23 Zika: Zika virus screening: Negative : No PFSH PFSH Surgical History H/O cystoscopy H/O breast augmentation Family History Grandfather Cancer Maternal- unsure what kind Heart disease Pacemaker- Maternal Mother Mitral valve disease Grandmother Mitral valve disease Maternal Social History adopted: No household members: spouse and children number of children: 2 current occupational status: employed 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 occupational exposures/hazards: No pets and animals: Yes pets and animals: dog(s) history of recent travel: No sexually active: Yes Smoking Status: Never smoker alcohol intake: never substance use type: does not use well-balanced diet: daily or most days caffeine: Yes Type: coffee Number of servings: 1 eating out: rarely or never during the past year weight has: remained stable what type of physical activity do you participate in: none kvng/church: [employer] seatbelt use: always do you feel safe at home: Yes 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 Date Name GA/Weeks Outcome Route Bth Weight Infant Gen Labor Lgth Anesthesia Del Locatn Provider FOB 01/06/18 Melanie 40 live - full term 6#13oz Female none [facility] Dr. Edwina Maldonado 11/29/20 Sameer 38 live - full term 6#10oz Male epidural [facility] Dr. Devante Maldonado HPI 34wk ob Details: AKOSUA NUNEZ is a 29 year old who presents for routine OB visit. OB Visit FRANCOISE Calculator Estimated Delivery Date Method Current WG Current Estimate 10/01/24 LMP (Certain) 34w 3d Expected Delivery Route/Plan Labor Preferences- CB/BF classes: no labor support person: Joel labor intervention preferences: [] pain management options preferred: limited cut cord/dad catch: yes : yes PP control planned: discussed discussed possible routes of delivery and associated risks: [] special requests: [] Specific Issue/Plans Covid status: [] Flu vaccine: [] Tdap vaccine: given Rhogam: NA LARC form signed: Yes Problem list reviewed and updated with the most current plan of care details and appropriate orders placed. Relevant counseling for the gestational age provided. Continue routine care and follow up unless otherwise noted in visit notes/problem list details Initial Weight: 131 lb Date -???-???-???-???-???- ???-???-???-???-???-? ??-???- EGA Weight BP Urine Prot -???-???-???-???-???- ???-???-???-???-???-? ??-???- Glucose FHR FuHt Pres Dilation -???-???-???-???-???- ???-???-???-???-???-? ??-???- Effaced St Visit Note 02/19/24 -???-???-???-???-???- ???-???-???-???-???-? ??-???- 7w 6d 131 lb (+0 oz) 83/63 -???-???-???-???-???- ???-???-???-???-???-? ??-???- 161 -???-???-???-???-???- ???-???-???-???-???-? ??-???- KW- CRL cons with dates. small MAMADOU noted. desires NIPT. 03/19/24 -???-???-???-???-???- ???-???-???-???-???-? ??-???- 12w 0d 135 lb (+4 lb) 121/75 Negative -???-???-???-???-???- ???-???-???-???-???-? ??-???- Negative 163 -???-???-???-???-???- ???-???-???-???-???-? ??-???- JV- CRL stil l consistent with LMP. plans to do NIPT today. does not want to know gender. 04/14/24 -???-???-???-???-???- ???-???-???-???-???-? ??-???- 15w 5d 136 lb 8 oz (+5 lb 8 oz) 115/76 Negative -???-???-???-???-???- ???-???-???-???-???-? ??-???- Negative 145 -???-???-???-???-???- ???-???-???-???-???-? ??-?? (more content not included)... [facility] [employer] Office Visit Reporton 08-12-2024 D[employer] Office Visit Report [facility] [address], [address] [place] [address] OFFICE VISIT Date of Service: 08/12/24 MR#: [id number] Acct: [id number] Name: AKOSUA NUNEZ Rep #: [id number] : 1995 Provider: DAVID Martinez ams Age/Sex: 29/F Location[facility] [place] Status: Signed Intake Vital Signs 07/13/24 08:36 07/29/24 14:05 08/12/24 10:36 08/12/24 10:40 Height 5 ft 5 in 5 ft 5 in 5 ft 5 in 5 ft 5 in Weight: 157 lb 6 oz BMI 26.2 BP 109/74 Intake Visit Reasons: 32wk ob Web Worker Required: No Is patient in pain?: No Allergies No Known Allergies Allergy (Unverified 08/12/24 10:37) Medications ???Medication ???Instructions ???Recorded ???Confirmed ???Type PNV 153-FA 400 mcg-om3 35 mg-dha tab PO 02/06/24 08/12/24 History 25 mg-epa 5 mg-fish oil chew tablet breast pump #1 ea 05/24/24 08/12/24 Rx Last Menstrual Period: 12/26/23 Zika: Zika virus screening: Negative : No PFSH PFSH Surgical History H/O cystoscopy H/O breast augmentation Family History Grandfather Cancer Maternal- unsure what kind Heart disease Pacemaker- Maternal Mother Mitral valve disease Grandmother Mitral valve disease Maternal Social History adopted: No household members: spouse and children number of children: 2 current occupational status: employed 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 occupational exposures/hazards: No pets and animals: Yes pets and animals: dog(s) history of recent travel: No sexually active: Yes Smoking Status: Never smoker alcohol intake: never substance use type: does not use well-balanced diet: daily or most days caffeine: Yes Type: coffee Number of servings: 1 eating out: rarely or never during the past year weight has: remained stable what type of physical activity do you participate in: none kvng/church: [employer] seatbelt use: always do you feel safe at home: Yes 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 Date Name GA/Weeks Outcome Route Bth Weight Gen Labor Lgth Anesthesia Del Locatn Provider FOB 01/06/18 Melanie 40 live - full term 6#13oz Female none [facility] Dr. Edwina Maldonado 11/29/20 Sameer 38 live - full term 6#10oz Male epidural [facility] Dr. Devante Maldonado HPI 32wk ob Details: AKOSUA NUNEZ is a 29 year old who presents for routine OB visit. OB Visit FRANCOISE Calculator Estimated Delivery Date Method Current WG Current Estimate 10/01/24 LMP (Certain) 32w 6d Expected Delivery Route/Plan Labor Preferences- CB/BF classes: no labor support person: Joel labor intervention preferences: [] pain management options preferred: limited cut cord/dad catch: yes : yes PP control planned: discussed discussed possible routes of delivery and associated risks: [] special requests: [] Specific Issue/Plans Covid status: [] Flu vaccine: [] Tdap vaccine: given Rhogam: NA LARC form signed: Yes Problem list reviewed and updated with the most current plan of care details and appropriate orders placed. Relevant counseling for the gestational age provided. Continue routine care and follow up unless otherwise noted in visit notes/problem list details Initial Weight: 131 lb Date -???-???-???-???-???- ???-???-???-???-???-? ??-???- EGA Weight BP Urine Prot -???-???-???-???-???- ???-???-???-???-???-? ??-???- Glucose FHR FuHt Pres Dilation -???-???-???-???-???- ???-???-???-???-???-? ??-???- Effaced St Visit Note 02/19/24 -???-???-???-???-???- ???-???-???-???-???-? ??-???- 7w 6d 131 lb (+0 oz) 83/63 -???-???-???-???-???- ???-???-???-???-???-? ??-???- 161 -???-???-???-???-???- ???-???-???-???-???-? ??-???- KW- CRL cons with dates. small MAMADOU noted. desires NIPT. 03/19/24 -???-???-???-???-???- ???-???-???-???-???-? ??-???- 12w 0d 135 lb (+4 lb) 121/75 Negative -???-???-???-???-???- ???-???-???-???-???-? ??-???- Negative 163 -???-???-???-???-???- ???-???-???-???-???-? ??-???- JV- CRL stil l consistent with LMP. plans to do NIPT today. does not want to know gender. 04/14/24 -???-???-???-???-???- ???-???-???-???-???-? ??-???- 15w 5d 136 lb 8 oz (+5 lb 8 oz) 115/76 Negative -???-???-???-???-???- ???-???-???-???-???-? ??-???- Negative 145 -???-???-???-???-???- ???-???-???-???-???-? ??-???- SM- no vb cr amping 05/17/24 (more content not included)... [facility] - Chemistry and C hemistry - challengeOrdered By: Zo Dyer on 07-29-2024 Glucose Ql (U) Negative [facility] - UrinalysisOrder ed By: Zo Dyer on 07-29-2024 Protein Ql (U) [facility] [employer] Office Visit Reporton 07-29-2024 Dobby [employer]ger Office Visit Report [facility] [address], [address] [place] [address] OFFICE VISIT Date of Service: 07/29/24 MR#: [id number] Acct: [id number] Name: AKOSUA NUNEZ Rep #: [id number] : 1995 Provider: DAVID Martinez ams Age/Sex: 29/F Location: [facility] [place] Status: Signed Intake Vital Signs 05/17/24 09:30 07/13/24 09:12 07/29/24 14:05 Height 5 ft 5 in 5 ft 5 in Weight: 158 lb 2 oz BMI 26.3 BP 110/70 Intake Visit Reasons: 30 WK OB Chief Complaint: 30wk OB Web Worker Required: No Is patient in pain?: No Allergies No Known Allergies Allergy (Unverified 07/29/24 14:03) Medications ???Medication ???Instructions ???Recorded ???Confirmed ???Type PNV 153-FA 400 mcg-om3 35 mg-dha tab PO 02/06/24 07/29/24 History 25 mg-epa 5 mg-fish oil chew tablet breast pump #1 ea 05/24/24 07/29/24 Rx Last Menstrual Period: 12/26/23 Have you fallen in the past year?: No PFSH PFSH Surgical History H/O cystoscopy H/O breast augmentation Family History Grandfather Cancer Maternal- unsure what kind Heart disease Pacemaker- Maternal Mother Mitral valve disease Grandmother Mitral valve disease Maternal Social History adopted: No household members: spouse and children number of children: 2 current occupational status: employed 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 occupational exposures/hazards: No pets and animals: Yes pets and animals: dog(s) history of recent travel: No sexually active: Yes Smoking Status: Never smoker alcohol intake: never substance use type: does not use well-balanced diet: daily or most days caffeine: Yes Type: coffee Number of servings: 1 eating out: rarely or never during the past year weight has: remained stable what type of physical activity do you participate in: none kvng/church: [employer] seatbelt use: always do you feel safe at home: Yes 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 Date Name GA/Weeks Outcome Route Bth Weight Infant Gen Labor Lgth Anesthesia Del Locatn Provider ETIENNE 01/06/18 Melanie 40 live - full term 6#13oz Female none [facility] Dr. dEwina Maldonado 11/29/20 Sameer 38 live - full term 6#10oz Male epidural [facility] [place] [facility]. Devante Maldonado HPI 30 WK OB Details: AKOSUA NUNEZ is a 29 year old who presents for routine OB visit. OB Visit FRANCOISE Calculator Estimated Delivery Date Method Current WG Current Estimate 10/01/24 LMP (Certain) 30w 6d Expected Delivery Route/Plan Labor Preferences- CB/BF classes: no labor support person: Joel labor intervention preferences: [] pain management options preferred: limited cut cord/dad catch: yes : yes PP control planned: discussed discussed possible routes of delivery and associated risks: [] special requests: [] Specific Issue/Plans Covid status: [] Flu vaccine: [] Tdap vaccine: given Rhogam: NA LARC form signed: Yes Problem list reviewed and updated with the most current plan of care details and appropriate orders placed. Relevant counseling for the gestational age provided. Continue routine care and follow up unless otherwise noted in visit notes/problem list details Initial Weight: 131 lb Date -???-???-???-???-???- ???-???-???-???-???-? ??-???- EGA Weight BP Urine Prot -???-???-???-???-???- ???-???-???-???-???-? ??-???- Glucose FHR FuHt Pres Dilation -???-???-???-???-???- ???-???-???-???-???-? ??-???- Effaced St Visit Note 02/19/24 -???-???-???-???-???- ???-???-???-???-???-? ??-???- 7w 6d 131 lb (+0 oz) 83/63 -???-???-???-???-???- ???-???-???-???-???-? ??-???- 161 -???-???-???-???-???- ???-???-???-???-???-? ??-???- KW- CRL cons with dates. small MAMADOU noted. desires NIPT. 03/19/24 -???-???-???-???-???- ???-???-???-???-???-? ??-???- 12w 0d 135 lb (+4 lb) 121/75 Negative -???-???-???-???-???- ???-???-???-???-???-? ??-???- Negative 163 -???-???-???-???-???- ???-???-???-???-???-? ??-???- JV- CRL stil l consistent with LMP. plans to do NIPT today. does not want to know gender. 04/14/24 -???-???-???-???-???- ???-???-???-???-???-? ??-???- 15w 5d 136 lb 8 oz (+5 lb 8 oz) 115/76 Negative -???-???-???-???-???- ???-???-???-???-???-? ??-???- Negative 145 -???-???-???-???-???- ???-???-???-???-???-? ??-???- SM- no vb cr amping 05/17/24 -???-???-???-???-???- ???-???-???-?? (more content not included)... [facility] Absolute lymphocyte countOrd ered By: Mary Snowwillard on 07-13-2024 Lymphocytes Auto (Unsp spec) [#/Vol] 1.38 10*3/uL 0.83-4.51 [facility] Absolute neutrophil countOrd ered By: Mary Snowwillard on 07-13-2024 Neutrophils (Bld) [#/Vol] 8.8 10*3/uL High 2.0-7.7 [facility] Automated lymphocyte count a s percentage of total leukocytesOrdered By: Mary Snowwillard on 07-13-2024 Lymphocytes/100 WBC Auto (Unsp spec) 12.1 % Low 19-41 [facility] Basophil percentageOrdered B y: Mary Snowwillard on 07-13-2024 Basophils/100 WBC (Bld) 0.3 % 0-1 [facility] CBC W/Diff, Automatedon 07-01 Absolute Lymph 1.38 X10 3/uL Normal 0.83-4.51 [facility] Comment on above: Performed By: #### L 100.0100, L509.8002, L501.0250, L3890.6006 ####[facility] [address] [place], [address] Absolute Neut 8.8 X10 3/uL High 2.0-7.7 [facility] Comment on above: Performed By: #### L 100.0100, L509.8002, L501.0250, L3890.6006 ####[facility] [address] [place], [address] Basophils/100 WBC (Bld) 0.3 % Normal 0-1 [facility] Comment on above: Performed By: #### L 100.0100, L509.8002, L501.0250, L3890.6006 ####[facility] [address] [place], [address] Eosinophils/100 WBC (Bld) 0.9 % Normal 0-5 [facility] Comment on above: Performed By: #### L 100.0100, L509.8002, L501.0250, L3890.6006 ####[facility] [address] [place], [address] Erythrocyte distribution width (RBC) [Ratio] 13.1 % Normal 11.6-14.6 [facility] Comment on above: Performed By: #### L 100.0100, L509.8002, L501.0250, L3890.6006 ####[facility] [address] [place], [address] Hematocrit (Bld) [Volume fraction] 36.1 % Low 37-47 [facility] Comment on above: Performed By: #### L 100.0100, L509.8002, L501.0250, L3890.6006 ####[facility] [address] [place], [address] Hemoglobin (Bld) [Mass/Vol] 11.7 g/dL Low 12.0-15.0 [facility] Comment on above: Performed By: #### L 100.0100, L509.8002, L501.0250, L3890.6006 ####[facility] [address] [place], [address] IG% 2.200 High 0.0-0.9 [facility] Comment on above: Result Comment: IG% - Immature Granulocytes (promyelocytes, myelocytes and metamyelocytes) > 1% indicates that a LEFT SHIFT is Present. Performed By: #### L 100.0100, L509.8002, L501.0250, L3890.6006 ####[facility] [address] [place], [address] Lymphocytes/100 WBC (Bld) 12.1 % Low 19-41 [facility] Comment on above: Performed By: #### L 100.0100, L509.8002, L501.0250, L3890.6006 ####[facility] [address] [place], [address] MCH (RBC) [Entitic mass] 31.3 pg Normal 27.0-32.0 [facility] Comment on above: Performed By: #### L 100.0100, L509.8002, L501.0250, L3890.6006 ####[facility] [address] [place], [address] MCHC (RBC) [Mass/Vol] 32.4 g/dL Normal 32-36 [facility] Comment on above: Performed By: #### L 100.0100, L509.8002, L501.0250, L3890.6006 ####[facility] [address] [place], [address] MCV (RBC) [Entitic vol] 96.5 fL Normal 81-99 [facility] Comment on above: Performed By: #### L 100.0100, L509.8002, L501.0250, L3890.6006 ####[facility] [address] [place], [address] Monocytes/100 WBC (Bld) 7.4 % Normal 0-10 [facility] Comment on above: Performed By: #### L 100.0100, L509.8002, L501.0250, L3890.6006 ####[facility] [address] [place], [address] Neutrophils/100 WBC (Bld) 77.1 % High 47-70 [facility] Comment on above: Performed By: #### L 100.0100, L509.8002, L501.0250, L3890.6006 ####[facility] [address] [place], [address] Nucleated RBC (Bld) [#/Vol] 0 10*3/uL Normal 0-5 [facility] Comment on above: Performed By: #### L 100.0100, L509.8002, L501.0250, L3890.6006 ####[facility] [address] [place], [address] Platelet mean volume (Bld) [Entitic vol] 10.3 fL Normal 6.2-12.0 [facility] Comment on above: Performed By: #### L 100.0100, L509.8002, L501.0250, L3890.6006 ####[facility] [address] [place], [address] Platelets (Bld) [#/Vol] 235 10*3/uL Normal 150-450 [facility] Comment on above: Performed By: #### L 100.0100, L509.8002, L501.0250, L3890.6006 ####[facility] [address] [place], [address] RBC (Bld) [#/Vol] 3.74 10*6/uL Low 4.2-5.4 [facility] Comment on above: Performed By: #### L 100.0100, L509.8002, L501.0250, L3890.6006 ####[facility] [address] [place], [address] RDW SD 46.5 fl High 35.1-43.9 [facility] Comment on above: Performed By: #### L 100.0100, L509.8002, L501.0250, L3890.6006 ####[facility] [address] [place], [address] WBC (Bld) [#/Vol] 11.4 10*3/uL High 4.4-11.0 [facility] Comment on above: Performed By: #### L 100.0100, L509.8002, L501.0250, L3890.6006 ####[facility] [address] [place], [place], [address] Eosinophil percentageOrdered By: Mary Carreno on 07-13-2024 Eosinophils/100 WBC (Bld) 0.9 % 0-5 [facility] Erythrocyte distribution wid th ratioOrdered By: Mary Carreno on 07-13-2024 Erythrocyte distribution width (RBC) [Ratio] 13.1 % 11.6-14.6 [facility] Erythrocyte distribution wid th standard deviationOrdered By: Mary Carreno on 07-13-2024 Erythrocyte distribution width (RBC) [Ratio] 46.5 fl High 35.1-43.9 [facility] Glucose Challenge Gest 1H 50 arpita 07-13-2024 GLU GEST 50g 1H 68 mg/dL Low 70-140 [facility] Comment on above: Performed By: #### L 100.0100, L509.8002, L501.0250, L3890.6006 ####[facility] [address] [place], [place], [id number] Glucose measurement at 2 charbel rs post-dose gestational glucose tolerance testOrdered By: Mary Carreno on 07-13-2024 Glucose [Mass/Vol] 68 mg/dL Low 70-140 [facility] HIVon 07-13-2024 HIV Non-Reactive Normal Nonreactive [facility] Comment on above: Result Comment: Non- Reactive Reactive Repeatedly reactive samples must be confirmed according to CDC recommended confirmatory algorithms. The subresults for either HIVAG or AHIV can be used as an aid in the selection of the confirmation algorithm for reactive samples. Send out specimens with Reactive results to [facility] for confirmation. Order the HIV antibody detection and differentiation: lc#[id number] Performed By: #### L 100.0100, L509.8002, L501.0250, L3890.6006 ####[facility] [address] [place], [address] Hematocrit Auto (Bld) [Volum e fraction]Ordered By: Mary Carreno on 07-13-2024 Hematocrit (Bld) [Volume fraction] 36.1 % Low 37-47 [facility] Hemoglobin measurementOrdere d By: Mary Carreno on 07-13-2024 Hemoglobin (Bld) [Mass/Vol] 11.7 g/dL Low 12.0-15.0 [facility] Immature granulocytes/100 WB C Auto (Bld)Ordered By: Mary Carreno on 07-13-2024 Immature granulocytes/100 WBC (Bld) 2.200 % High 0.0-0.9 [facility] Comment on above: IG% - Immature Granu locytes (promyelocytes, myelocytes and metamyelocytes) > 1% indicates that a LEFT SHIFT is Present. Laboratory - Chemistry and C hemistry - challengeOrdered By: Anila Weir on 07-13-2024 Glucose Ql (U) Negative [facility] Laboratory - UrinalysisOrder ed By: Anila Weir on 07-13-2024 Protein Ql (U) Negative [facility] MCV (mean corpuscular volume ) determinationOrdered By: Mary Carreno on 07-13-2024 MCV (RBC) [Entitic vol] 96.5 fL 81-99 [facility] Mean corpuscular hemoglobin (MCH) determinationOrdered By: Mary Carreno on 07-13-2024 MCH (RBC) [Entitic mass] 31.3 pg 27.0-32.0 [facility] Mean corpuscular hemoglobin concentration (MCHC) determinationOrdered By: Mary Carreno on 07-13-2024 MCHC (RBC) [Mass/Vol] 32.4 g/dL 32-36 [facility] Mean platelet volume determi nationOrdered By: Mary Carreno on 07-13-2024 Platelet mean volume (Bld) [Entitic vol] 10.3 fL 6.2-12.0 [facility] Monocyte percentageOrdered B y: Mary Carreno on 07-13-2024 Monocytes/100 WBC (Bld) 7.4 % 0-10 [facility] Neutrophil percentageOrdered By: Mary Carreno on 07-13-2024 Neutrophils/100 WBC (Bld) 77.1 % High 47-70 [facility] No Panel InformationOrdered By: Mary Carreno on 07-13-2024 HIV (1&2) Antibody Non-Reactive Nonreactive [facility] Comment on above: Non-ReactiveReactive Repeatedly reactive samples must be confirmed according to CDC recommended confirmatory algorithms. The subresults for either HIVAG or AHIV can be used as an aid in the selection of the confirmation algorithm for reactive samples.Send out specimens with Reactive results to [facility] for confirmation.Order the HIV antibody detection and differentiation: #[id number] Nucleated red blood cell per centageOrdered By: Mary Carreno on 07-13-2024 Nucleated RBC/100 WBC (Bld) [Ratio] 0 % 0-5 [facility] [employer] Office Visit Reporton 07-13-2024 [employer] Office Visit Report [facility] [address], [address] [place] [address] OFFICE VISIT Date of Service: 07/13/24 MR#: [id number] Acct: [id number] Name: AKOSUA NUNEZ Rep #: [id number] : 1995 Provider: CIARRA melton Age/Sex: 29/F Location: [facility] [place] Status: Signed with Addenda ADDENDUM by Emilee Montemayor on 07/13/24 at 0931 Office Procedure Documentation entered by Emilee Montemayor 07/13/24 09:31: Immunizations Adacel(Tdap Adolesn/Adult)(PF) 2 Lf-(2.5-5-3-5)-5 Lf/0.5 mL IM syringe Performing Provider: CIARRA Decker NP Performing Location: [facility] Administered by: Emilee Montemayor on 07/13/24 09:30 Dose Route Admin Location Dispensed Lot Number Expiration Date NDC Man ufacturer 0.5 mL IM Left Deltoid 0.5 mL [id number] 06/30/26 99788-988-51 [employer] VIS Given Date VIS Provided VIS Publication Date 07/13/24 Single Vaccine 24 Eligibility Eligibility Date Funding Source Not Applicable Date cc: * Signed Intake Vital Signs 05/17/24 09:30 06/14/24 11:41 07/13/24 08:36 Height 5 ft 5 in 5 ft 5 in 5 ft 5 in Weight: 155 lb 6 oz BMI 25.8 BP 112/64 Intake Visit Reasons: 28 WK OB/GLUCOSE Chief Complaint: 28 Week OB/Glucose Web Worker Required: No Is patient in pain?: No Allergies No Known Allergies Allergy (Unverified 07/13/24 08:38) Medications ???Medication ???Instructions ???Recorded ???Confirmed ???Type PNV 153-FA 400 mcg-om3 35 mg-dha tab PO 02/06/24 07/13/24 History 25 mg-epa 5 mg-fish oil chew tablet breast pump #1 ea 05/24/24 07/13/24 Rx Last Menstrual Period: 12/26/23 Zika: Zika virus screening: Negative : Yes PFSH PFSH Surgical History H/O cystoscopy H/O breast augmentation Family History Grandfather Cancer Maternal- unsure what kind Heart disease Pacemaker- Maternal Mother Mitral valve disease Grandmother Mitral valve disease Maternal Social History adopted: No household members: spouse and children number of children: 2 current occupational status: employed 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 occupational exposures/hazards: No pets and animals: Yes pets and animals: dog(s) history of recent travel: No sexually active: Yes Smoking Status: Never smoker alcohol intake: never substance use type: does not use well-balanced diet: daily or most days caffeine: Yes Type: coffee Number of servings: 1 eating out: rarely or never during the past year weight has: remained stable what type of physical activity do you participate in: none kvng/church: [employer] seatbelt use: always do you feel safe at home: Yes 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 Date Name GA/Weeks Outcome Route Bth Weight Infant Gen Labor Lgth Anesthesia Del Locatn Provider FOB 01/06/18 Melanie 40 live - full term 6#13oz Female none [facility] Dr. Edwina Maldonado 11/29/20 Sameer 38 live - full term 6#10oz Male epidural [facility] [place] Dr. Devante Maldonado HPI 28 WK OB/GLUCOSE Details: AKOSUA NUNEZ is a 29 year old who presents for routine OB visit. OB Visit FRANCOISE Calculator Estimated Delivery Date Method Current WG Current Estimate 10/01/24 LMP (Certain) 28w 4d Expected Delivery Route/Plan Labor Preferences- CB/BF classes: no labor support person: Joel labor intervention preferences: [] pain management options preferred: limited cut cord/dad catch: yes : yes PP control planned: discussed discussed possible routes of delivery and associated risks: [] special requests: [] Specific Issue/Plans Covid status: [] Flu vaccine: [] Tdap vaccine: given Rhogam: NA LARC form signed: Yes Problem list reviewed and updated with the most current plan of care details and appropriate orders placed. Relevant counseling for the gestational age provided. Continue routine care and follow up unless otherwise noted in visit notes/problem list details Initial Weight: 131 lb Date -???-???-???-???-???- ???-???-???-???-???-? ??-???- EGA Weight BP Urine Prot -???-???-???-???-???- ???-???-???-???-???-? ??-???- Glucose FHR FuHt Pres Dilation -???-???-???-???-???- ???-???-???-???-???-? ??-???- Effaced St Visit Note 02/18/ (more content not included)... [facility] Platelet countOrdered By: Weston Carreno on 07-13-2024 Platelets (Bld) [#/Vol] 235 10*3/uL 150-450 [facility] RBC Auto (Bld) [#/Vol]Ordere d By: Mary Carreno on 07-13-2024 RBC (Bld) [#/Vol] 3.74 10*6/uL Low 4.2-5.4 [facility] Syphilis Antibodieson 2024 Syphilis Abs Non-Reactive Normal Nonreactive [facility] Comment on above: Performed By: #### L 100.0100, L509.8002, L501.0250, L3890.6006 ####[facility] [address] [place], [address] White blood cell (WBC) count Ordered By: Mary Carreno on 07-13-2024 WBC (Bld) [#/Vol] 11.4 10*3/uL High 4.4-11.0 [facility] [employer] Office Visit Reporton 06-14-2024 [employer] Office Visit Report [facility], [address] [place] [address] OFFICE VISIT Date of Service: 06/14/24 MR#: [id number] Acct: [id number] Name: AKOSUA NUNEZ Rep #: [id number] : 1995 Provider: Dr. Mary Brown DO Age/Sex: 29/F Location: [facility] [place] Status: Signed Intake Vital Signs 05/17/24 09:30 06/14/24 11:41 Height 5 ft 5 in 5 ft 5 in Weight: 147 lb 2 oz BMI 24.5 BP 113/74 Intake Visit Reasons: 24 WK OB Chief Complaint: 24 Week OB Web Worker Required: No Is patient in pain?: No Allergies No Known Allergies Allergy (Unverified 06/14/24 11:42) Medications ???Medication ???Instructions ???Recorded ???Confirmed ???Type PNV 153-FA 400 mcg-om3 35 mg-dha tab PO 02/06/24 06/14/24 History 25 mg-epa 5 mg-fish oil chew tablet breast pump #1 ea 05/24/24 06/14/24 Rx Last Menstrual Period: 12/26/23 Zika: Zika virus screening: Negative : No PFSH PFSH Surgical History H/O cystoscopy H/O breast augmentation Family History Grandfather Cancer Maternal- unsure what kind Heart disease Pacemaker- Maternal Mother Mitral valve disease Grandmother Mitral valve disease Maternal Social History adopted: No household members: spouse and children number of children: 2 current occupational status: employed 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 occupational exposures/hazards: No pets and animals: Yes pets and animals: dog(s) history of recent travel: No sexually active: Yes Smoking Status: Never smoker alcohol intake: never substance use type: does not use well-balanced diet: daily or most days caffeine: Yes Type: coffee Number of servings: 1 eating out: rarely or never during the past year weight has: remained stable what type of physical activity do you participate in: none kvng/church: [employer] seatbelt use: always do you feel safe at home: Yes 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 Date Name GA/Weeks Outcome Route Bth Weight Gen Labor Lgth Anesthesia Del Locatn Provider FOB 01/06/18 Melanie 40 live - full term 6#13oz Female none [facility] Dr. Edwian Maldonado 11/29/20 Sameer 38 live - full term 6#10oz Male epidural [facility] Dr. Devante Maldonado HPI 24 WK OB Details: AKOSUA NUNEZ is a 29 year old who presents for routine OB visit. OB Visit FRANCOISE Calculator Estimated Delivery Date Method Current WG Current Estimate 10/01/24 LMP (Certain) 24w 3d Expected Delivery Route/Plan Labor Preferences- CB/BF classes: [] labor support person: [] labor intervention preferences: [] pain management options preferred: [] cut cord/dad catch: [] : [] PP control planned: [] discussed possible routes of delivery and associated risks: [] special requests: [] Specific Issue/Plans Covid status: [] Flu vaccine: [] Tdap vaccine: [] Rhogam: [] LARC form signed: [] Problem list reviewed and updated with the most current plan of care details and appropriate orders placed. Relevant counseling for the gestational age provided. Continue routine care and follow up unless otherwise noted in visit notes/problem list details Initial Weight: 131 lb Date -???-???-???-???-???- ???-???-???-???-???-? ??-???- EGA Weight BP Urine Prot -???-???-???-???-???- ???-???-???-???-???-? ??-???- Glucose FHR FuHt Pres Dilation -???-???-???-???-???- ???-???-???-???-???-? ??-???- Effaced St Visit Note 02/19/24 -???-???-???-???-???- ???-???-???-???-???-? ??-???- 7w 6d 131 lb (+0 oz) 83/63 -???-???-???-???-???- ???-???-???-???-???-? ??-???- 161 -???-???-???-???-???- ???-???-???-???-???-? ??-???- KW- CRL cons with dates. helio MAMADOU noted. desires NIPT. 03/19/24 -???-???-???-???-???- ???-???-???-???-???-? ??-???- 12w 0d 135 lb (+4 lb) 121/75 Negative -???-???-???-???-???- ???-???-???-???-???-? ??-???- Negative 163 -???-???-???-???-???- ???-???-???-???-???-? ??-???- JV- CRL stil l consistent with LMP. plans to do NIPT today. does not want to know gender. 04/14/24 -???-???-???-???-???- ???-???-???-???-???-? ??-???- 15w 5d 136 lb 8 oz (+5 lb 8 oz) 115/76 Negative -???-???-???-???-???- ???-???-???-???-???-? ??-???- Negative 145 -???-???-???-???-???- ???-???-???-???-???-? ??-???- SM- no vb cr amping 05/17/24 -???-???-???-???-???- ??? (more content not included)... Normal [facility] - Chemistry and C hemistry - challengeOrdered By: Zo Dyer on 05-17-2024 Glucose Ql (U) Negative [facility] - UrinalysisOrder ed By: Zo Dyer on 05-17-2024 Protein Ql (U) Negative [facility] [employer] Office Visit Reporton 05-17-2024 [employer] Office Visit Report [facility]'[address], [address] [place] [id number] OFFICE VISIT Date of Service: 05/17/24 MR#: [id number] Acct: [id number] Name: AKOSUA NUNEZ Rep #: [id number] : 1995 Provider: DAVID Martinez ams Age/Sex: 29/F Location: [facility] [place] Status: Signed Intake Vital Signs 04/14/24 09:45 05/17/24 09:30 Height 5 ft 5 in 5 ft 5 in Weight: 140 lb 2 oz BMI 23.3 BP 112/74 Intake Visit Reasons: 20 wk ob Chief Complaint: 20wk OB Is patient in pain?: No Allergies No Known Allergies Allergy (Unverified 05/17/24 09:33) Medications ???Medication ???Instructions ???Recorded ???Confirmed ???Type PNV 153-FA 400 mcg-om3 35 mg-dha tab PO 02/06/24 05/17/24 History 25 mg-epa 5 mg-fish oil chew tablet Last Menstrual Period: 12/26/23 : No PFSH PFSH Surgical History H/O cystoscopy H/O breast augmentation Family History Grandfather Cancer Maternal- unsure what kind Heart disease Pacemaker- Maternal Mother Mitral valve disease Grandmother Mitral valve disease Maternal Social History adopted: No household members: spouse and children number of children: 2 current occupational status: employed 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 occupational exposures/hazards: No pets and animals: Yes pets and animals: dog(s) history of recent travel: No sexually active: Yes Smoking Status: Never smoker alcohol intake: never substance use type: does not use well-balanced diet: daily or most days caffeine: Yes Type: coffee Number of servings: 1 eating out: rarely or never during the past year weight has: remained stable what type of physical activity do you participate in: none kvng/church: [employer] seatbelt use: always do you feel safe at home: Yes 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 Date Name GA/Weeks Outcome Route Bth Weight Gen Labor Lgth Anesthesia Del Locatn Provider FOB 01/06/18 Melanie 40 live - full term 6#13oz Female none [facility] Dr. Edwina Maldonado 11/29/20 Sameer 38 live - full term 6#10oz Male epidural [facility] [place] [facility]. Devante Maldonado HPI 20 wk ob Details: AKOSUA NUNEZ is a 29 year old who presents for routine OB visit. OB Visit FRANCOISE Calculator Estimated Delivery Date Method Current WG Current Estimate 10/01/24 LMP (Certain) 20w 3d Expected Delivery Route/Plan Labor Preferences- CB/BF classes: [] labor support person: [] labor intervention preferences: [] pain management options preferred: [] cut cord/dad catch: [] : [] PP control planned: [] discussed possible routes of delivery and associated risks: [] special requests: [] Specific Issue/Plans Covid status: [] Flu vaccine: [] Tdap vaccine: [] Rhogam: [] LARC form signed: [] Problem list reviewed and updated with the most current plan of care details and appropriate orders placed. Relevant counseling for the gestational age provided. Continue routine care and follow up unless otherwise noted in visit notes/problem list details Initial Weight: 131 lb Date -???-???-???-???-???- ???-???-???-???-???-? ??-???- EGA Weight BP Urine Prot -???-???-???-???-???- ???-???-???-???-???-? ??-???- Glucose FHR FuHt Pres Dilation -???-???-???-???-???- ???-???-???-???-???-? ??-???- Effaced St Visit Note 02/19/24 -???-???-???-???-???- ???-???-???-???-???-? ??-???- 7w 6d 131 lb (+0 oz) 83/63 -???-???-???-???-???- ???-???-???-???-???-? ??-???- 161 -???-???-???-???-???- ???-???-???-???-???-? ??-???- KW- CRL cons with dates. small MAMADOU noted. desires NIPT. 03/19/24 -???-???-???-???-???- ???-???-???-???-???-? ??-???- 12w 0d 135 lb (+4 lb) 121/75 Negative -???-???-???-???-???- ???-???-???-???-???-? ??-???- Negative 163 -???-???-???-???-???- ???-???-???-???-???-? ??-???- JV- CRL stil l consistent with LMP. plans to do NIPT today. does not want to know gender. 04/14/24 -???-???-???-???-???- ???-???-???-???-???-? ??-???- 15w 5d 136 lb 8 oz (+5 lb 8 oz) 115/76 Negative -???-???-???-???-???- ???-???-???-???-???-? ??-???- Negative 145 -???-???-???-???-???- ???-???-???-???-???-? ??-???- SM- no vb cr amping 05/17/24 -???-???-???-???-???- ???-???-???-???-???-? ??-???- 20w 3d 140 lb 2 oz (+9 lb 2 oz) 112/74 Negative -???-???-???-???-???- ???-???-???-???-???-? ??-???- Negative (more content not included)... Normal [facility] - Chemistry and C hemistry - challengeOrdered By: Rachele Hummel on 04-14-2024 Glucose Ql (U) Negative [facility] - UrinalysisOrder ed By: Rachele Hummel on 04-14-2024 Protein Ql (U) Negative [facility] [employer] Office Visit Reporton 04-14-2024 [employer] Office Visit Report [facility] [address], [address] [place] [address] OFFICE VISIT Date of Service: 04/14/24 MR#: [id number] Acct: [id number] Name: AKOSUA NUNEZ Rep #: [id number] : 1995 Provider: Dr. Rachele cruz MD Age/Sex: 29/F Location: [facility] Status: Signed Intake Vital Signs 04/14/24 09:45 Height 5 ft 5 in Weight: 136 lb 8 oz BMI 22.7 BP 115/76 Intake Visit Reasons: 16 wk ob Web Worker Required: No Is patient in pain?: No Feel stressed/tense/nervou s/anxious/difficulty sleeping: not at all Allergies No Known Allergies Allergy (Unverified 04/14/24 09:45) Medications ???Medication ???Instructions ???Recorded ???Confirmed ???Type PNV 153-FA 400 mcg-om3 35 mg-dha tab PO 02/06/24 04/14/24 History 25 mg-epa 5 mg-fish oil chew tablet Last Menstrual Period: 12/26/23 Zika: Zika virus screening: Negative : No Have you fallen in the past year?: No PFSH PFSH Surgical History H/O cystoscopy H/O breast augmentation Family History Grandfather Cancer Maternal- unsure what kind Heart disease Pacemaker- Maternal Mother Mitral valve disease Grandmother Mitral valve disease Maternal Social History adopted: No household members: spouse and children number of children: 2 current occupational status: employed 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 occupational exposures/hazards: No pets and animals: Yes pets and animals: dog(s) history of recent travel: No sexually active: Yes Smoking Status: Never smoker alcohol intake: never substance use type: does not use well-balanced diet: daily or most days caffeine: Yes Type: coffee Number of servings: 1 eating out: rarely or never during the past year weight has: remained stable what type of physical activity do you participate in: none kvng/church: [employer] seatbelt use: always do you feel safe at home: Yes 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 Date Name GA/Weeks Outcome Route Bth Weight Infant Gen Labor Lgth Anesthesia Del Locatn Provider FOB 01/06/18 Melanie 40 live - full term 6#13oz Female none [facility] Dr. Edwina Maldonado 11/29/20 Sameer 38 live - full term 6#10oz Male epidural [facility] Dr. Devante Maldonado HPI 16 wk ob Details: AKOSUA NUNEZ is a 29 year old who presents for routine OB visit. OB Visit FRANCOISE Calculator Estimated Delivery Date Method Current WG Current Estimate 10/01/24 LMP (Certain) 15w 5d Expected Delivery Route/Plan Labor Preferences- CB/BF classes: [] labor support person: [] labor intervention preferences: [] pain management options preferred: [] cut cord/dad catch: [] : [] PP control planned: [] discussed possible routes of delivery and associated risks: [] special requests: [] Specific Issue/Plans Covid status: [] Flu vaccine: [] Tdap vaccine: [] Rhogam: [] LARC form signed: [] Problem list reviewed and updated with the most current plan of care details and appropriate orders placed. Relevant counseling for the gestational age provided. Continue routine care and follow up unless otherwise noted in visit notes/problem list details Initial Weight: 131 lb Date -???-???-???-???-???- ???-???-???-???-???-? ??-???- EGA Weight BP Urine Prot -???-???-???-???-???- ???-???-???-???-???-? ??-???- Glucose FHR FuHt Pres Dilation -???-???-???-???-???- ???-???-???-???-???-? ??-???- Effaced St Visit Note 02/19/24 -???-???-???-???-???- ???-???-???-???-???-? ??-???- 7w 6d 131 lb (+0 oz) 83/63 -???-???-???-???-???- ???-???-???-???-???-? ??-???- 161 -???-???-???-???-???- ???-???-???-???-???-? ??-???- KW- CRL cons with dates. small MAMADOU noted. desires NIPT. 03/19/24 -???-???-???-???-???- ???-???-???-???-???-? ??-???- 12w 0d 135 lb (+4 lb) 121/75 Negative -???-???-???-???-???- ???-???-???-???-???-? ??-???- Negative 163 -???-???-???-???-???- ???-???-???-???-???-? ??-???- JV- CRL stil l consistent with LMP. plans to do NIPT today. does not want to know gender. 04/14/24 -???-???-???-???-???- ???-???-???-???-???-? ??-???- 15w 5d 136 lb 8 oz (+5 lb 8 oz) 115/76 Negative -???-???-???-???-???- ???-???-???-???-???-? ??-???- Negative 145 -???-???-???-???-???- ???-???-???-???-???-? ??-???- SM- no vb cr amping ACOG First Trimester First T (more content not included)... Normal [facility] V-Zoster IgG (Immunity)on V ZOSTER IgG Normal [facility] Comment on above: Order Comment: NIPT with Gender Result Comment: RESU LT: REACTIVE Please note reference interval change A Reactive result is considered evidence of immunity to VZV. Reactive indicates that VZV IgG was detected consistent with previous infection and/or vaccination. A Non Reactive result indicates that VZV IgG was not detected suggesting that immunity has not been acquired. Performed at: [facility], [place], [place] [id number] Collar Separator: Donal Tay PhD, Phone: [phone] Performed By: #### L 3890.6300, L100.0100, L900.0098, BTS, L3890.6100, L3400.0000, L509.4005, L3890.6005, L509.8000 ####[facility] [address] [place], [address] Absolute lymphocyte countOrd ered By: Zo Dyer on 03-19-2024 Lymphocytes Auto (Unsp spec) [#/Vol] 1.72 10*3/uL 0.83-4.51 [facility] Absolute neutrophil countOrd ered By: Zo Dyer on 03-19-2024 Neutrophils (Bld) [#/Vol] 8.6 10*3/uL High 2.0-7.7 [facility] Automated lymphocyte count a s percentage of total leukocytesOrdered By: Zo Dyer on 03-19-2024 Lymphocytes/100 WBC Auto (Unsp spec) 15.8 % Low 19-41 [facility] Basophil percentageOrdered B y: Zo Dyer on 03-19-2024 Basophils/100 WBC (Bld) 0.2 % 0-1 [facility] CBC W/Diff, Automatedon 03-03 Absolute Lymph 1.72 X10 3/uL Normal 0.83-4.51 [facility] Comment on above: Performed By: #### L 3890.6300, L100.0100, L900.0098, BTS, L3890.6100, L3400.0000, L509.4005, L3890.6005, L509.8000 ####[facility] [address] [place], [address] Absolute Neut 8.6 X10 3/uL High 2.0-7.7 [facility] Comment on above: Performed By: #### L 3890.6300, L100.0100, L900.0098, BTS, L3890.6100, L3400.0000, L509.4005, L3890.6005, L509.8000 ####[facility] [address] [place], [address] Basophils/100 WBC (Bld) 0.2 % Normal 0-1 [facility] Comment on above: Performed By: #### L 3890.6300, L100.0100, L900.0098, BTS, L3890.6100, L3400.0000, L509.4005, L3890.6005, L509.8000 ####[facility] [address] [place], [place], [phone]) Eosinophils/100 WBC (Bld) 0.3 % Normal 0-5 [facility] Comment on above: Performed By: #### L 3890.6300, L100.0100, L900.0098, BTS, L3890.6100, L3400.0000, L509.4005, L3890.6005, L509.8000 ####[facility] [address] [place], [phone]) Erythrocyte distribution width (RBC) [Ratio] 12.8 % Normal 11.6-14.6 [facility] Comment on above: Performed By: #### L 3890.6300, L100.0100, L900.0098, BTS, L3890.6100, L3400.0000, L509.4005, L3890.6005, L509.8000 ####[facility] [address] [place], [address](434) Hematocrit (Bld) [Volume fraction] 38.6 % Normal 37-47 [facility] Comment on above: Performed By: #### L 3890.6300, L100.0100, L900.0098, BTS, L3890.6100, L3400.0000, L509.4005, L3890.6005, L509.8000 ####[facility] [address] [place], [place], [phone]) Hemoglobin (Bld) [Mass/Vol] 12.7 g/dL Normal 12.0-15.0 [facility] Comment on above: Performed By: #### L 3890.6300, L100.0100, L900.0098, BTS, L3890.6100, L3400.0000, L509.4005, L3890.6005, L509.8000 ####[facility] [address] [place], [address] IG% 0.400 Normal 0.0-0.9 [facility] Comment on above: Result Comment: IG% - Immature Granulocytes (promyelocytes, myelocytes and metamyelocytes) > 1% indicates that a LEFT SHIFT is Present. Performed By: #### L 3890.6300, L100.0100, L900.0098, BTS, L3890.6100, L3400.0000, L509.4005, L3890.6005, L509.8000 ####[facility] [address] [place], [address] Lymphocytes/100 WBC (Bld) 15.8 % Low 19-41 [facility] Comment on above: Performed By: #### L 3890.6300, L100.0100, L900.0098, BTS, L3890.6100, L3400.0000, L509.4005, L3890.6005, L509.8000 ####[facility] [address], [address] MCH (RBC) [Entitic mass] 30.0 pg Normal 27.0-32.0 [facility] Comment on above: Performed By: #### L 3890.6300, L100.0100, L900.0098, BTS, L3890.6100, L3400.0000, L509.4005, L3890.6005, L509.8000 ####[facility] [address] [place], [address] MCHC (RBC) [Mass/Vol] 32.9 g/dL Normal 32-36 [facility] Comment on above: Performed By: #### L 3890.6300, L100.0100, L900.0098, BTS, L3890.6100, L3400.0000, L509.4005, L3890.6005, L509.8000 ####[facility] [address] [place], [address] MCV (RBC) [Entitic vol] 91.3 fL Normal 81-99 [facility] Comment on above: Performed By: #### L 3890.6300, L100.0100, L900.0098, BTS, L3890.6100, L3400.0000, L509.4005, L3890.6005, L509.8000 ####[facility] [address] [place], [address] Monocytes/100 WBC (Bld) 4.9 % Normal 0-10 [facility] Comment on above: Performed By: #### L 3890.6300, L100.0100, L900.0098, BTS, L3890.6100, L3400.0000, L509.4005, L3890.6005, L509.8000 ####[facility] [address] [place], [address] Neutrophils/100 WBC (Bld) 78.4 % High 47-70 [facility] Comment on above: Performed By: #### L 3890.6300, L100.0100, L900.0098, BTS, L3890.6100, L3400.0000, L509.4005, L3890.6005, L509.8000 ####[facility] [address] [place], [address] Nucleated RBC (Bld) [#/Vol] 0 10*3/uL Normal 0-5 [facility] Comment on above: Performed By: #### L 3890.6300, L100.0100, L900.0098, BTS, L3890.6100, L3400.0000, L509.4005, L3890.6005, L509.8000 ####[facility] [address] [place], [address] Platelet mean volume (Bld) [Entitic vol] 10.0 fL Normal 6.2-12.0 [facility] Comment on above: Performed By: #### L 3890.6300, L100.0100, L900.0098, BTS, L3890.6100, L3400.0000, L509.4005, L3890.6005, L509.8000 ####[facility] [address] [place], [address] Platelets (Bld) [#/Vol] 278 10*3/uL Normal 150-450 [facility] Comment on above: Performed By: #### L 3890.6300, L100.0100, L900.0098, BTS, L3890.6100, L3400.0000, L509.4005, L3890.6005, L509.8000 ####[facility] [address] [place], [address] RBC (Bld) [#/Vol] 4.23 10*6/uL Normal 4.2-5.4 [facility] Comment on above: Performed By: #### L 3890.6300, L100.0100, L900.0098, BTS, L3890.6100, L3400.0000, L509.4005, L3890.6005, L509.8000 ####[facility] [address] [place], [address] RDW SD 41.8 fl Normal 35.1-43.9 [facility] Comment on above: Performed By: #### L 3890.6300, L100.0100, L900.0098, BTS, L3890.6100, L3400.0000, L509.4005, L3890.6005, L509.8000 ####[facility] [address] [place], [address] WBC (Bld) [#/Vol] 10.9 10*3/uL Normal 4.4-11.0 [facility] Comment on above: Performed By: #### L 3890.6300, L100.0100, L900.0098, BTS, L3890.6100, L3400.0000, L509.4005, L3890.6005, L509.8000 ####[facility] [address] [place], [place], [id number] Eosinophil percentageOrdered By: Zo Dyer on 03-19-2024 Eosinophils/100 WBC (Bld) 0.3 % 0-5 [facility] Erythrocyte distribution wid th ratioOrdered By: Zo Dyer on 03-19-2024 Erythrocyte distribution width (RBC) [Ratio] 12.8 % 11.6-14.6 [facility] Erythrocyte distribution wid th standard deviationOrdered By: Zo Dyer on 03-19-2024 Erythrocyte distribution width (RBC) [Ratio] 41.8 fl 35.1-43.9 [facility] HIV - WCHon 03-19-2024 HIV Non-Reactive Normal Nonreactive [facility] Comment on above: Order Comment: Reaso n for Exam: Performed By: #### L 3890.6300, L100.0100, L900.0098, BTS, L3890.6100, L3400.0000, L509.4005, L3890.6005, L509.8000 ####[facility] [address] [place], [place], [phone] HIV 1 and HIV-2 antibody ass ay with HIV-1 p24 antigen detectionOrdered By: Zo Dyer on 03-19-2024 HIV 1+2 Ab+HIV1 p24 Ag IA Ql Non-Reactive Nonreactive [facility] Hematocrit Auto (Bld) [Volum e fraction]Ordered By: Zo Dyer on 03-19-2024 Hematocrit (Bld) [Volume fraction] 38.6 % 37-47 [facility] Hemoglobin measurementOrdere d By: Zo Dyer on 03-19-2024 Hemoglobin (Bld) [Mass/Vol] 12.7 g/dL 12.0-15.0 [facility] Hepatitis B Surface Antigeno n 03-19-2024 HEP B Surf Ag Non-Reactive Normal Nonreactive [facility] Comment on above: Order Comment: Reaso n for Exam: Performed By: #### L 3890.6300, L100.0100, L900.0098, BTS, L3890.6100, L3400.0000, L509.4005, L3890.6005, L509.8000 ####[facility] [address] [place], [place], [address] Hepatitis C Antibodyon 03-19 Hepatitis C AB Non-Reactive Normal Nonreactive [facility] Comment on above: Order Comment: Reaso n for Exam: Result Comment: Non Reactive: < 0.8 Equivocal: >/= 0.8 to < 1.0 Reactive: >/= 1.0 The CDC requires that a reactive/equivocal HCV antibody result be sent out for confirmation. HCV Quant by PCR testing. Performed By: #### L 3890.6300, L100.0100, L900.0098, BTS, L3890.6100, L3400.0000, L509.4005, L3890.6005, L509.8000 ####[facility] [address] [place], [place], [phone] Immature granulocytes/100 WB C Auto (Bld)Ordered By: Zo Dyer on 03-19-2024 Immature granulocytes/100 WBC (Bld) 0.400 % 0.0-0.9 [facility] Comment on above: IG% - Immature Granu locytes (promyelocytes, myelocytes and metamyelocytes) > 1% indicates that a LEFT SHIFT is Present. L509.8000on 03-19-2024 Syphilis Abs Non-Reactive Normal [facility] Comment on above: Order Comment: Reaso n for Exam: Performed By: #### L 3890.6300, L100.0100, L900.0098, BTS, L3890.6100, L3400.0000, L509.4005, L3890.6005, L509.8000 ####[facility] [address] [place], [place], [id number] Laboratory - Chemistry and C hemistry - challengeon 03-19-2024 Glucose Ql (U) Negative [facility] - Urinalysison Protein Ql (U) Negative [facility] MCV (mean corpuscular volume ) determinationOrdered By: Zo Dyer on 03-19-2024 MCV (RBC) [Entitic vol] 91.3 fL 81-99 [facility] Mean corpuscular hemoglobin (MCH) determinationOrdered By: Zo Dyer on 03-19-2024 MCH (RBC) [Entitic mass] 30.0 pg 27.0-32.0 [facility] Mean corpuscular hemoglobin concentration (MCHC) determinationOrdered By: Zo Dyer on 03-19-2024 MCHC (RBC) [Mass/Vol] 32.9 g/dL 32-36 [facility] Mean platelet volume determi nationOrdered By: Zo Dyer on 03-19-2024 Platelet mean volume (Bld) [Entitic vol] 10.0 fL 6.2-12.0 [facility] Monocyte percentageOrdered B y: Zo Dyer on 03-19-2024 Monocytes/100 WBC (Bld) 4.9 % 0-10 [facility] NATERAon 03-19-2024 NATURA SEE SCANNED REPORT Normal [facility] Comment on above: Order Comment: Comme nts: NIPT with Gender Performed By: #### L 3890.6300, L100.0100, L900.0098, BTS, L3890.6100, L3400.0000, L509.4005, L3890.6005, L509.8000 ####[facility] [address] [place], [place], [id number] Neutrophil percentageOrdered By: Zo Dyer on 03-19-2024 Neutrophils/100 WBC (Bld) 78.4 % High 47-70 [facility] Nucleated red blood cell per centageOrdered By: Zo Dyer on 03-19-2024 Nucleated RBC/100 WBC (Bld) [Ratio] 0 % 0-5 [facility] [employer] Office Visit Reporton 03-19-2024 [employer] Office Visit Report [facility] [address], [address] [place] [address] OFFICE VISIT Date of Service: 03/19/24 MR#: [id number] Acct: [id number] Name: AKOSUA NUNEZ Rep #: [id number] : 1995 Provider: Dr. Mary Brown DO Age/Sex: 29/F Location: [facility] Status: Signed Intake Vital Signs 03/19/24 11:32 Weight: 135 lb BP 121/75 H Intake Visit Reasons: 12wk OB Web Worker Required: No Is patient in pain?: No Feel stressed/tense/nervou s/anxious/difficulty sleeping: not at all Allergies No Known Allergies Allergy (Unverified 03/19/24 11:32) Medications ???Medication ???Instructions ???Recorded ???Confirmed ???Type PNV 153-FA 400 mcg-om3 35 mg-dha tab PO 02/06/24 03/19/24 History 25 mg-epa 5 mg-fish oil chew tablet Last Menstrual Period: 12/26/23 Zika: Zika virus screening: Negative : No Have you fallen in the past year?: No PFSH PFSH Surgical History H/O cystoscopy H/O breast augmentation Family History Grandfather Cancer Maternal- unsure what kind Heart disease Pacemaker- Maternal Mother Mitral valve disease Grandmother Mitral valve disease Maternal Social History adopted: No household members: spouse and children number of children: 2 current occupational status: employed 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 occupational exposures/hazards: No pets and animals: Yes pets and animals: dog(s) history of recent travel: No sexually active: Yes Smoking Status: Never smoker alcohol intake: never substance use type: does not use well-balanced diet: daily or most days caffeine: Yes Type: coffee Number of servings: 1 eating out: rarely or never during the past year weight has: remained stable what type of physical activity do you participate in: none kvng/church: [employer] seatbelt use: always do you feel safe at home: Yes 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 Date Name GA/Weeks Outcome Route Bth Weight Gen Labor Lgth Anesthesia Del Locatn Provider FOB 01/06/18 Melanie 40 live - full term 6#13oz Female none [facility] Dr. Edwina Maldonado 11/29/20 Sameer 38 live - full term 6#10oz Male epidural [facility] Dr. Devante Maldonado HPI 12wk OB Details: AKOSUA NUNEZ is a 29 year old who presents for routine OB visit. OB Visit FRANCOISE Calculator Estimated Delivery Date Method Current WG Current Estimate 10/01/24 LMP (Certain) 12w 0d Expected Delivery Route/Plan Labor Preferences- CB/BF classes: [] labor support person: [] labor intervention preferences: [] pain management options preferred: [] cut cord/dad catch: [] : [] PP control planned: [] discussed possible routes of delivery and associated risks: [] special requests: [] Specific Issue/Plans Covid status: [] Flu vaccine: [] Tdap vaccine: [] Rhogam: [] LARC form signed: [] Problem list reviewed and updated with the most current plan of care details and appropriate orders placed. Relevant counseling for the gestational age provided. Continue routine care and follow up unless otherwise noted in visit notes/problem list details Initial Weight: 131 lb Date -???-???-???-???-???- ???-???-???-???-???-? ??-???- EGA Weight BP Urine Prot -???-???-???-???-???- ???-???-???-???-???-? ??-???- Glucose FHR FuHt Pres Dilation -???-???-???-???-???- ???-???-???-???-???-? ??-???- Effaced St Visit Note 02/19/24 -???-???-???-???-???- ???-???-???-???-???-? ??-???- 7w 6d 131 lb (+0 oz) 83/63 -???-???-???-???-???- ???-???-???-???-???-? ??-???- 161 -???-???-???-???-???- ???-???-???-???-???-? ??-???- KW- CRL cons with dates. small MAMADOU noted. desires NIPT. 03/19/24 -???-???-???-???-???- ???-???-???-???-???-? ??-???- 12w 0d 135 lb (+4 lb) 121/75 Negative -???-???-???-???-???- ???-???-???-???-???-? ??-???- Negative 163 -???-???-???-???-???- ???-???-???-???-???-? ??-???- JV- CRL stil l consistent with LMP. plans to do NIPT today. does not want to know gender. ACOG First Trimester First Trimester: Desire for , Alcohol, Tobacco Cessation, Illicit/Recreational Drug/Substance Use, Intimate Partner Violence, Barriers to care, Anticipated Course of Care, Use of Any medications, Sexual activity, Exercise, Dental Care, Sauna/Hot tub use, Seat Belt use, Childbirth (more content not included)... [facility] Platelet countOrdered By: Bunny Dyer on 03-19-2024 Platelets (Bld) [#/Vol] 278 10*3/uL 150-450 [facility] RBC Auto (Bld) [#/Vol]Ordere d By: Zo Dyer on 03-19-2024 RBC (Bld) [#/Vol] 4.23 10*6/uL 4.2-5.4 [facility] Rubella IgGon 03-19-2024 Rubella IgG Reactive Normal Nonreactive [facility] Comment on above: Order Comment: Reaso n for Exam: Result Comment: Anti body Results Interpretation of Immune Status Non Reactive Presumed Non-Immune Equivocal Equivocal Reactive Presumed Immune Performed By: #### L 3890.6300, L100.0100, L900.0098, BTS, L3890.6100, L3400.0000, L509.4005, L3890.6005, L509.8000 ####[facility] [address] [place], [place], [id number] Serum Treponema species anti body detectionOrdered By: Zo Dyer on 03-19-2024 Treponema sp Ab Ql (S) Non-Reactive [facility] Serum Varicella zoster virus IgG antibody assay by immunoassay (units/volume)Ordered By: Zo Dyer on 03-19-2024 VZV IgG IA Qn (S) See comment [facility] Comment on above: RESULT: REACTIVEPl ease note reference interval changeA Reactive result is considered evidence of immunity toVZV. Reactive indicates that VZV IgG was detectedconsistent with previous infection and/or vaccination.A Non Reactive result indicates that VZV IgG was notdetected suggesting that immunity has not been acquired.Performed at: [facility] [address] [id number] Director: Donal Tay PhD, Phone: [phone] Type AND Screenon 03-19-2024 ABO and Rh group Nom (Bld) Blood group A Rh(D) positive Normal [facility] Comment on above: Order Comment: PN Performed By: #### L 3890.6300, L100.0100, L900.0098, BTS, L3890.6100, L3400.0000, L509.4005, L3890.6005, L509.8000 ####[facility] [address] [place], [address] White blood cell (WBC) count Ordered By: Zo Dyer on 03-19-2024 WBC (Bld) [#/Vol] 10.9 10*3/uL 4.4-11.0 [facility] POCT INFLUENZA, A Bon 2024 FLUAV RNA BRUCE+probe Ql (Unsp spec) Negative Negative, Not Tested, Invalid, Not Detected [facility] FLUBV RNA BRUCE+probe Ql (Unsp spec) Negative Negative, Not Tested, Invalid, Not Detected [facility] Interpretation and review of laboratory results Normal [facility] PAP IG HPV APTIMA 16/18,45on 02-29-2024 ADEQ Comment Normal . [facility] Comment on above: Order Comment: Speci men Comment: [id number] Specimen Comment: Source.............Cervix;Endocervix Specimen Comment: Other.............. Specimen Comment: No. of containers..01 ThinPrep Vial Result Comment: Sati sfactory for evaluation. No endocervical component is identified. An endocervical component is not commonly seen in the patient. Performed By: #### L 7400.0280, L7000.1800, M100.2200 #### [facility] [address] [place], [address] COMM . Normal . [facility] Comment on above: Order Comment: Speci men Comment: [id number] Specimen Comment: Source.............Cervix;Endocervix Specimen Comment: Other.............. Specimen Comment: No. of containers..01 ThinPrep Vial Performed By: #### L 7400.0280, L7000.1800, M100.2200 #### [facility] [address] [place], [place], [id number] COMMENT Comment Normal . [facility] Comment on above: Order Comment: Speci men Comment: [id number] Specimen Comment: Source.............Cervix;Endocervix Specimen Comment: Other.............. Specimen Comment: No. of containers..01 ThinPrep Vial Result Comment: This liquid based ThinPrep(R) pap test was screened with the use of an image guided system. Performed By: #### L 7400.0280, L7000.1800, M100.2200 #### [facility] [address] [place], [address] DIAG Comment Normal . [facility] Comment on above: Order Comment: Speci men Comment: [id number] Specimen Comment: Source.............Cervix;Endocervix Specimen Comment: Other.............. Specimen Comment: No. of containers..01 ThinPrep Vial Result Comment: NEGA TIVE FOR INTRAEPITHELIAL LESION OR MALIGNANCY. Performed By: #### L 7400.0280, L7000.1800, M100.2200 #### [facility] [address] [place], [address] HPV APTIMA, HR Negative Normal Negative [facility] Comment on above: Order Comment: Speci men Comment: [id number] Specimen Comment: Source.............Cervix;Endocervix Specimen Comment: Other.............. Specimen Comment: No. of containers..01 ThinPrep Vial Result Comment: This nucleic acid amplification test detects fourteen high- risk HPV types (16,18,31,33,35,39,45,51,52,56,58,59,66,68) without differentiation. Performed By: #### L 7400.0280, L7000.1800, M100.2200 #### [facility] [address] [place], [place], [id number] HPV Marcelle Rfx Comment Normal . [facility] Comment on above: Order Comment: Speci men Comment: [id number] Specimen Comment: Source.............Cervix;Endocervix Specimen Comment: Other.............. Specimen Comment: No. of containers..01 ThinPrep Vial Result Comment: Crit eria not met, HPV Genotype not performed. Performed at: - [facility] [id number] Collar Separator: Ofelia Garcia MD, Phone: [phone] Performed at: = - [facility] [id number] Collar Separator: Ofelia Garcia MD, Phone: [phone] Performed By: #### L 7400.0280, L7000.1800, M100.2200 #### [facility] [address] [place], [address] PAPSMR Comment Normal . [facility] Comment on above: Order Comment: Speci men Comment: [id number] Specimen Comment: Source.............Cervix;Endocervix Specimen Comment: Other.............. Specimen Comment: No. of containers..01 ThinPrep Vial Result Comment: The Pap smear is a screening test designed to aid in the detection of premalignant and malignant conditions of the uterine cervix. It is not a diagnostic procedure and should not be used as the sole means of detecting cervical cancer. Both false-positive and false-negative reports do occur. Performed By: #### L 7400.0280, L7000.1800, M100.2200 #### [facility] [address] [place], [address] PERFORM Comment Normal . [facility] Comment on above: Order Comment: Speci men Comment: [id number] Specimen Comment: Source.............Cervix;Endocervix Specimen Comment: Other.............. Specimen Comment: No. of containers..01 ThinPrep Vial Result Comment: Wayne Seymour, Aviation Safety Officer (ASCP) Performed By: #### L 7400.0280, L7000.1800, M100.2200 #### [facility] [address] [place], [address] Chlamydia/GC BRUCE aptimaon CHLAMY,NUC ACID Negative Normal Negative [facility] Comment on above: Performed By: #### L 7400.0280, L7000.1800, M100.2200 #### [facility] [address] [place], [address] GC BY NUC ACID Negative Normal Negative [facility] Comment on above: Result Comment: Perf ormed at: =G - [facility] [id number] Collar Separator: Ofelia Garcia MD, Phone: [phone] Performed By: #### L 7400.0280, L7000.1800, M100.2200 #### [facility] [address] [place], [address] Urine Cultureon 02-20-2024 URC Below infection level. Presumptive E. coli [place] Count <1000 Normal [facility] Comment on above: Performed By: #### L 7400.0280, L7000.1800, M100.2200 #### [facility] [address] [place], [address] [employer] Office Visit Reporton 02-19-2024 [employer] Office Visit Report [facility] [address], [address] [place] [address] OFFICE VISIT Date of Service: 02/19/24 MR#: [id number] Acct: [id number] Name: AKOSUA NUNEZ Rep #: [id number] : 1995 Provider: DAVID Martniez ams Age/Sex: 29/F Location: [facility] Status: Signed Intake Vital Signs 02/19/24 13:13 Weight: 131 lb BP 83/63 L Intake Visit Reasons: New OB, LMP 12/25, FRANCOISE 10/01 Web Worker Required: No Is patient in pain?: No Allergies No Known Allergies Allergy (Unverified 02/19/24 13:14) Medications ???Medication ???Instructions ???Recorded ???Confirmed ???Type PNV 153-FA 400 mcg-om3 35 mg-dha tab PO 02/06/24 02/19/24 History 25 mg-epa 5 mg-fish oil chew tablet Last Menstrual Period: 12/26/23 Zika: Zika virus screening: Negative : Yes Have you fallen in the past year?: No PFSH PFSH Surgical History H/O cystoscopy H/O breast augmentation Family History Grandfather Cancer Maternal- unsure what kind Heart disease Pacemaker- Maternal Mother Mitral valve disease Grandmother Mitral valve disease Maternal Social History adopted: No household members: spouse and children number of children: 2 service: No current occupational status: employed 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 occupational exposures/hazards: No pets and animals: Yes pets and animals: dog(s) history of recent travel: No sexually active: Yes Smoking Status: Never smoker alcohol intake: never substance use type: does not use well-balanced diet: daily or most days caffeine: Yes Type: coffee Number of servings: 1 eating out: rarely or never during the past year weight has: remained stable what type of physical activity do you participate in: none kvng/church: [employer] seatbelt use: always do you feel safe at home: Yes 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 Date Name GA/Weeks Outcome Route Bth Weight Infant Gen Labor Lgth Anesthesia Del Locatn Provider FOB 01/06/18 Melanie 40 live - full term 6#13oz Female none [facility] Dr. Edwina Maldonado 11/29/20 Sameer 38 live - full term 6#10oz Male epidural [facility] [place] Dr. Devante Maldonado HPI New OB, LMP 12/25, FRANCOISE 10/01 Details: AKOSUA NUNEZ is a 29 year old who presents for New OB visit. OB Visit FRANCOISE Calculator Estimated Delivery Date Method Current WG Current Estimate 10/01/24 LMP (Certain) 7w 6d Comments: HIV: Urine Culture: Sequential Screen: NIPT Screen: Estimated Due Date: 10/01/24 Expected Delivery Route/Plan Labor Preferences- CB/BF classes: [] labor support person: [] labor intervention preferences: [] pain management options preferred: [] cut cord/dad catch: [] : [] PP control planned: [] discussed possible routes of delivery and associated risks: [] special requests: [] Specific Issue/Plans Covid status: [] Flu vaccine: [] Tdap vaccine: [] Rhogam: [] LARC form signed: [] Problem list reviewed and updated with the most current plan of care details and appropriate orders placed. Relevant counseling for the gestational age provided. Continue routine care and follow up unless otherwise noted in visit notes/problem list details Initial Weight: 131 lb Date -???-???-???-???-???- ???-???-???-???-???-? ??-???- EGA Weight BP Urine Prot -???-???-???-???-???- ???-???-???-???-???-? ??-???- Glucose FHR FuHt Pres Dilation -???-???-???-???-???- ???-???-???-???-???-? ??-???- Effaced St Visit Note 02/19/24 -???-???-???-???-???- ???-???-???-???-???-? ??-???- 7w 6d 131 lb (+0 oz) 83/63 -???-???-???-???-???- ???-???-???-???-???-? ??-???- 161 -???-???-???-???-???- ???-???-???-???-???-? ??-???- KW- CRL cons with dates. small MAMADOU noted. desires NIPT. Menstrual History Last Menstrual Period: 12/26/23 Reported LMP: definite Normal amount/duration: Yes Frequency in days: 28 On hormonal BC at conception: No hCG+: 01/21/24 Antepartum Record Genetic Screening: Congenital Heart Defect: Other, Neural Tube Defect: Other, Hemoglobinopathy Or Carrier: Other, Cystic Fibrosis: Other, Chromosome Abnormality: Other, Donaldo-Sachs: Other, Hemophilia: Other, Intellectual Disability/Autism: Other, Recurrent Loss/Stillbirth: Other, Other Structural Defect: Other, Other Genetic Dis (more content not included)... [facility] CT ABDOMEN/PELVIS WITHOUT CO NTRASTon 04-17-2023 CT ABDOMEN/PELVIS WITHOUT CONTRAST EXAMINATION: CT ABDOMEN/PELVIS WITHOUT CONTRAST, 04/17/2023 10:57 AM EST HISTORY: Recurrent urinary tract infections and left flank pain. COMPARISON: CT abdomen and pelvis May 02, 2016. TECHNIQUE: CT scan of the abdomen and pelvis was performed without IV contrast. CT dose reduction technique was used, including Automated Exposure Control. FINDINGS: KUB system: Renal sizes are generally symmetric and both kidneys show no stones or hydronephrosis. No focal masses are identified on the unenhanced study. The ureters are symmetric and nondilated with no ureteral or bladder stones. Urinary bladder is nondistended and appears grossly normal. CT abdomen/pelvis: The lung bases are clear. Evaluation of the solid organs is limited without IV contrast. The liver, spleen, pancreas, and adrenal glands show no acute abnormality or focal masses. The gallbladder appears normal with no calcified stones. Small bowel loops show no signs of obstruction or appreciable loop thickening. Moderate amount of colonic stool is present. No bulky mesenteric or retroperitoneal adenopathy. No gross abnormality of the uterus or adnexa. No acute osseous abnormality. IMPRESSION: No KUB stones, hydronephrosis, or signs of an acute process in the abdomen/pelvis. Normal [facility] CT Abdomen and Pelvis WO con traston 04-17-2023 IMPRESSION: No KUB stones, hydronephrosis, or signs of an acute process in the abdomen/pelvis. RADIOLOGY EXAMINATION: CT ABDOMEN/PELVIS WITHOUT CONTRAST, 04/17/2023 10:57 AM EST HISTORY: Recurrent urinary tract infections and left flank pain. COMPARISON: CT abdomen and pelvis May 02, 2016. TECHNIQUE: CT scan of the abdomen and pelvis was performed without IV contrast. CT dose reduction technique was used, including Automated Exposure Control. FINDINGS: KUB system: Renal sizes are generally symmetric and both kidneys show no stones or hydronephrosis. No focal masses are identified on the unenhanced study. The ureters are symmetric and nondilated with no ureteral or bladder stones. Urinary bladder is nondistended and appears grossly normal. CT abdomen/pelvis: The lung bases are clear. Evaluation of the solid organs is limited without IV contrast. The liver, spleen, pancreas, and adrenal glands show no acute abnormality or focal masses. The gallbladder appears normal with no calcified stones. Small bowel loops show no signs of obstruction or appreciable loop thickening. Moderate amount of colonic stool is present. No bulky mesenteric or retroperitoneal adenopathy. No gross abnormality of the uterus or adnexa. No acute osseous abnormality. RADIOLOGY Kameron Baron, DO - 04/17/2023 EXAMINATION: CT ABDOMEN/PELVIS WITHOUT CONTRAST, 04/17/2023 10:57 AM EST HISTORY: Recurrent urinary tract infections and left flank pain. COMPARISON: CT abdomen and pelvis May 02, 2016. TECHNIQUE: CT scan of the abdomen and pelvis was performed without IV contrast. CT dose reduction technique was used, including Automated Exposure Control. FINDINGS: KUB system: Renal sizes are generally symmetric and both kidneys show no stones or hydronephrosis. No focal masses are identified on the unenhanced study. The ureters are symmetric and nondilated with no ureteral or bladder stones. Urinary bladder is nondistended and appears grossly normal. CT abdomen/pelvis: The lung bases are clear. Evaluation of the solid organs is limited without IV contrast. The liver, spleen, pancreas, and adrenal glands show no acute abnormality or focal masses. The gallbladder appears normal with no calcified stones. Small bowel loops show no signs of obstruction or appreciable loop thickening. Moderate amount of colonic stool is present. No bulky mesenteric or retroperitoneal adenopathy. No gross abnormality of the uterus or adnexa. No acute osseous abnormality. IMPRESSION IMPRESSION: No KUB stones, hydronephrosis, or signs of an acute process in the abdomen/pelvis. [facility] Radiology Study observation (narrative) [employer] [facility] [employer] CT Abdomen and Pelvis WO con trastOrdered By: Kameron Baron on 04-17-2023 [facility] [employer] Work Phone: CYSTOSCOPYon 04-04-2023 Belkys [place] MD 04/04/2023 4:05 PM CYSTOSCOPY Date/Time: 04/04/2023 1:30 PM Performed by: Belkys [place] MD Authorized by: Belkys [place] MD The attending physician was present for the entire procedure. Pre-Procedure: Indications: recurrent UTIs Detailed information of all possible complications and side effects were discussed with the patient, these include but not only; UTI, sepsis, hematuria, incontinence, urethral injury and cardiovascular complications. Informed consent was obtained. Does this procedure require a [place] Protocol? Yes. [place] Protocol is required. Procedure: Procedure performed: cystoscopy The patient was placed supine with all pressure points well padded. with Betadine. lidocaine 2% topical gel was inserted into urethra for local anesthesia. The flexible cystoscope was lubricated and placed into the urethral tract under direct visualization. A 360 survey of the bladder was performed. The cystoscope was reflected and the bladder neck and the ureteral orifices were inspected. The findings are detailed below. The cystoscope was removed following any additional procedures documented below. Findings: The urinary meatus appeared normal. Both ureteral orifices were normal in size, shape and position with efflux of clear urine. Post Procedure: Patient tolerated procedure with no immediate complications Post-procedure antibiotics were given (see MAR for details) EBL: minimal Provided education regarding water intake of at least 2 liters per day. Procedure Comments: Follow up with Jaimie Quintana CNP after obtaining pending CT scan. [facility] Radiology Study observation (narrative) [employer] POCT URINALYSIS DIPSTICK AUT OMATED W/O SCOPon 04-04-2023 Amorphous sediment LM Ql (Urine sed) [facility] Appearance (U) clear [facility] Bacteria LM Ql (Urine sed) [facility] Bilirubin Ql (U) Negative [facility] Casts LM.LPF (Urine sed) [#/Area] [facility] Color (U) yellow [facility] Crystals LM Nom (Urine sed) [facility] Epithelial cells.squamous LM.HPF (Urine sed) [#/Area] [facility] Flow cytometry specialist review Job (Unsp spec) [Interp] [facility] Glucose Auto test strip (U) [Mass/Vol] Negative mg/dL [facility] Ketones [Mass/Vol] Negative mg/dL [facility] Leukocyte esterase Qn (U) [facility] Leukocyte esterase Test strip Ql (U) Negative [facility] Nitrite Ql (U) Negative [facility] pH (U) 6.0 [pH] 5 - 7 [facility] Protein Ql (U) Negative mg/dL [facility] RBC LM.HPF (Urine sed) [#/Area] [facility] RBC Ql (U) Negative [facility] Specific gravity (U) [Rel density] 1.010 1.001 - 1.035 [facility] Transitional cells LM Ql (Urine sed) [facility] Urobilinogen Qn (U) 0.2 [facility] WBC LM.HPF (Urine sed) [#/Area] [facility] POCT URINALYSIS DIPSTICK AUT OMATED W/O SCOPon 03-26-2023 Amorphous sediment LM Ql (Urine sed) [facility] Appearance (U) clear [facility] Bacteria LM Ql (Urine sed) [facility] Bilirubin Ql (U) Negative [facility] Casts LM.LPF (Urine sed) [#/Area] [facility] Color (U) yellow [facility] Crystals LM Nom (Urine sed) [facility] Epithelial cells.squamous LM.HPF (Urine sed) [#/Area] [facility] Flow cytometry specialist review Job (Unsp spec) [Interp] [facility] Glucose Auto test strip (U) [Mass/Vol] Negative mg/dL [facility] Ketones [Mass/Vol] Negative mg/dL [facility] Leukocyte esterase Qn (U) [facility] Leukocyte esterase Test strip Ql (U) Negative [facility] Nitrite Ql (U) Negative [facility] pH (U) 6.0 [pH] 5 - 7 [facility] Protein Ql (U) Negative mg/dL [facility] RBC LM.HPF (Urine sed) [#/Area] [facility] RBC Ql (U) Negative [facility] Specific gravity (U) [Rel density] 1.025 1.001 - 1.035 [facility] Transitional cells LM Ql (Urine sed) [facility] Urobilinogen Qn (U) 0.2 [facility] WBC LM.HPF (Urine sed) [#/Area] [facility] XR ABDOMEN 1 VIEWon 03-26-19 XR ABDOMEN 1 VIEW EXAM: XR ABDOMEN 1 VIEW HISTORY: chronic UTI and left flank pain COMPARISON: None. TECHNIQUE: AP view of the abdomen. FINDINGS: Nonobstructive bowel gas pattern is noted. There is no suspicious calcification. The osseous structures are intact. IMPRESSION: Nonobstructive bowel gas pattern. Constipation. Normal [facility] XR Abdomen Single viewon IMPRESSION: Nonobstructive bowel gas pattern. Constipation. RADIOLOGY EXAM: XR ABDOMEN 1 VIEW HISTORY: chronic UTI and left flank pain COMPARISON: None. TECHNIQUE: AP view of the abdomen. FINDINGS: Nonobstructive bowel gas pattern is noted. There is no suspicious calcification. The osseous structures are intact. RADIOLOGY Adrien Lara MD - 03/26/2023 EXAM: XR ABDOMEN 1 VIEW HISTORY: chronic UTI and left flank pain COMPARISON: None. TECHNIQUE: AP view of the abdomen. FINDINGS: Nonobstructive bowel gas pattern is noted. There is no suspicious calcification. The osseous structures are intact. IMPRESSION IMPRESSION: Nonobstructive bowel gas pattern. Constipation. [facility] Radiology Study observation (narrative) [facility] XR Abdomen Single viewOrdere d By: Adrien Lara on 03-26-2023 [facility] Work Phone: POC Urinalysis Dipstick,Auto UCon 10-30-2022 Bilirubin Ql (U) Negative Negative [facility] Clarity, UA Cloudy Abnormal Clear [facility] Color (U) Yellow Yellow, Light Yellow, Dark Yellow [facility] Glucose Ql (U) Negative Normal, Negative mg/dL [facility] Hemoglobin Ql (U) Moderate Abnormal Negative [facility] Interpretation and review of laboratory results Abnormal [facility] Ketones Ql (U) Negative Negative mg/dL [facility] Leukocyte esterase Test strip Ql (U) Moderate Abnormal Negative [facility] Nitrite Ql (U) Negative Negative [facility] pH (U) 7.0 [pH] 5.0 - 7.0 [facility] Protein Ql (U) Negative Negative mg/dL [facility] Specific gravity (U) [Rel density] 1.015 1.005 - 1.025 [facility] Urobilinogen Qn (U) 0.2 mg/dL <2.0, 0. 2, Normal, Negative, 1.0, 2.0, <1.0 [facility] ABO/RH(D) TYPINGon ABO and Rh group Nom (Bld ) Positive [facility] Antibody screenon 10-20-2020 Blood group antibody screen Ql Negative [facility] EXPIRATION DATE 10/23/2020,2353 [facility] TOXICOLOGY DRUG SCREEN, URIN Antonio 10-20-2020 Amphetamine (U) [Mass/Vol] Not detected Abnormal NEGATIVE NG/ML [facility] Comment on above: <500 ng/ml CUTOFF Barbiturates Screen Ql (U) Not detected Abnormal NEGATIVE NG/ML [facility] Comment on above: <200 ng/ml CUTOFF Benzodiazepines Ql (U) Not detected Abnormal NEGAT GEORGE NG/ML [facility] Comment on above: <150 ng/ml CUTOFF Benzoylecgonine Ql (U) Not detected Abnormal NEGAT GEORGE NG/ML [facility] Comment on above: <150 ng/ml CUTOFF Buprenorphine Ql (U) Not detected Abnormal NEGATIV E NG/ML [facility] Comment on above: <10 ng/ml CUTOFF Cannabinoids Screen Ql (U) Not detected Abnormal NEGATIVE NG/ML [facility] Comment on above: <50 ng/ml CUTOFF Interpretation and review of laboratory results Abnormal [facility] Methadone Screen Ql (U) Not detected Abnormal NEGA TIVE NG/ML [facility] Comment on above: <200 ng/ml CUTOFF Methamphetamine (U) [Mass/Vol] Not detected Abnormal NEGATIVE NG/ML [facility] Comment on above: <500 ng/ml CUTOFF Opiates Screen Ql (U) Not detected Abnormal NEGATI VE NG/ML [facility] Comment on above: <100 ng/ml CUTOFF oxyCODONE Ql (U) Not detected Abnormal NEGATIVE [facility] Comment on above: <100 ng/ml CUTOFF Phencyclidine Screen method >25 ng/mL Ql (U) Not detected Abnormal NEGATIVE NG[facility] Comment on above: <25 ng/ml CUTOFF Propoxyphene+Norpropoxy phene Screen Ql (U) Not detected Abnormal NEGATIVE NG/[facility] Comment on above: <300 ng/ml CUTOFF Tricyclic antidepressants Screen Ql (U) Not detected Abnormal NEGATIVE [facility] Comment on above: <300 ng/ml CUTOFF [employer] ANKLEon 02-18-2018 ANKLE Final ReportAccession No: [id number] Performed: Feb 17 2018 11:42PMExamination: RIGHT ANKLEANKLE RIGHTHISTORY: Right ankle pain and swelling after injury.COMPARISON: None.FINDINGS: 3 views of the right ankle are provided. There is no fracture ormalalignment. Mortise joint space is preserved. There is some soft tissueswelling about the ankle, particularly anteriorly and laterally.IMPRESSION: No fracture or acute osseous injury is identified. Soft tissue swelling isnoted anteriorly and laterally.Interpretin g Physician: JOSE NEELY M.D.Trans: [email or web address] : cc: Normal [facility] Hgb and Hcton 2018 Hematocrit Auto Volume Fraction (Bld) 34.7 % Normal 34.4-44.8 [facility] Comment on above: Performed By: #### H H ####Unless otherwise noted, all testing performed by [facility], [place] [id number]: [id number] Director: Miller Shah M.D. Hemoglobin mass conc (Bld) 11.4 g/dL Low 11.6-15.4 [facility] Comment on above: Performed By: #### H H ####Unless otherwise noted, all testing performed by [address] [id number]: [id number] Director: Miller Shah M.D. CBC with Diffon 01-06-2018 Basophils Auto #/vol (Bld) 0.1 K/mcL Normal 0-0.2 [facility] Comment on above: Performed By: #### C BCDIF ####Unless otherwise noted, all testing performed by [address] [phone]: [id number] Director: Miller Shah M.D. Basophils/100 WBC Auto (Bld) 0.4 % Normal [facility] Comment on above: Performed By: #### C BCDIF ####Unless otherwise noted, all testing performed by [address] [id number]: [id number] Director: Miller Shah M.D. Eosinophils Auto #/vol (Bld) 0.1 K/mcL Normal 0-0.5 [facility] Comment on above: Performed By: #### C BCDIF ####Unless otherwise noted, all testing performed by [address] [phone]: [id number] Director: Miller Shah M.D. Eosinophils/100 WBC Auto (Bld) 0.4 % Normal [facility] Comment on above: Performed By: #### C BCDIF ####Unless otherwise noted, all testing performed by [address] [phone]: [id number] Director: Miller Shah M.D. Erythrocyte distribution width Auto Ratio (RBC) 13.5 % Normal 10.0-14.4 [facility] Comment on above: Performed By: #### C BCDIF ####Unless otherwise noted, all testing performed by [address] [id number]: [id number] Director: Miller Shah M.D. Hematocrit Auto Volume Fraction (Bld) 39.0 % Normal 34.4-44.8 [facility] Comment on above: Performed By: #### C BCDIF ####Unless otherwise noted, all testing performed by [address] [phone]: [id number] Director: Miller Shah M.D. Hemoglobin mass conc (Bld) 12.9 g/dL Normal 11.6-15.4 [facility] Comment on above: Performed By: #### C BCDIF ####Unless otherwise noted, all testing performed by [address] [phone]: [id number] Director: Miller Shah M.D. Lymphocytes Auto #/vol (Bld) 2.8 K/mcL Normal 1.0-3.7 [facility] Comment on above: Performed By: #### C BCDIF ####Unless otherwise noted, all testing performed by [address] [id number]: [id number] Director: Miller Shah M.D. Lymphocytes/100 WBC Auto (Bld) 21.8 % Normal [facility] Comment on above: Performed By: #### C BCDIF ####Unless otherwise noted, all testing performed by [address] [phone]: [id number] Director: Miller Shah M.D. MCH Auto Entitic mass (RBC) 30.2 pg Normal 27.9-33.9 [facility] Comment on above: Performed By: #### C BCDIF ####Unless otherwise noted, all testing performed by [address] [phone]: [id number] Director: Miller Shah M.D. MCHC Auto mass conc (RBC) 33.1 g/dL Normal 33.1-35.1 [facility] Comment on above: Performed By: #### C BCDIF ####Unless otherwise noted, all testing performed by [address] [phone]: [id number] Director: Miller Shah M.D. MCV Auto Entitic volume (RBC) 91.4 fL Normal 82.6-98.9 [facility] Comment on above: Performed By: #### C BCDIF ####Unless otherwise noted, all testing performed by [address] [phone]: [id number] Director: Miller Shah M.D. Monocytes Auto #/vol (Bld) 1.1 K/mcL High 0.1-0.6 [facility] Comment on above: Performed By: #### C BCDIF ####Unless otherwise noted, all testing performed by [address] [phone]: [id number] Director: Miller Shah M.D. Monocytes/100 WBC Auto (Bld) 8.6 % Normal [facility] Comment on above: Performed By: #### C BCDIF ####Unless otherwise noted, all testing performed by [address] [id number]: [id number] Director: Miller Shah M.D. Neutrophils Auto #/vol (Bld) 8.9 K/mcL High 1.2-6.9 [facility] Comment on above: Performed By: #### C BCDIF ####Unless otherwise noted, all testing performed by [address] [id number]: [id number] Director: Miller Shah M.D. Platelet mean volume Auto Entitic volume (Bld) 9.1 fL Normal 7.0-10.6 [facility] Comment on above: Performed By: #### C BCDIF ####Unless otherwise noted, all testing performed by [address] [phone]: [id number] Director: Miller Shah M.D. Platelets Auto #/vol (Bld) 204 K/mcL Normal 162-402 [facility] Comment on above: Performed By: #### C BCDIF ####Unless otherwise noted, all testing performed by [address] [phone]: [id number] Director: Miller Shah M.D. RBC Auto #/vol (Bld) 4.27 M/mcL Normal 3.7-5.0 [facility] Comment on above: Performed By: #### C BCDIF ####Unless otherwise noted, all testing performed by [address] [phone]: [id number] Director: Miller Shah M.D. Segmented Neut % 68.8 % Normal [facility] Comment on above: Performed By: #### C BCDIF ####Unless otherwise noted, all testing performed by [address] [phone]: [id number] Director: Miller Shah M.D. WBC Auto #/vol (Bld) 12.9 K/mcL High 3.4-10.6 [facility] Comment on above: Performed By: #### C BCDIF ####Unless otherwise noted, all testing performed by [address] [id number]: [id number] Director: Miller Shah M.D. Type and Screenon 01-06-2018 Type and Screen Negative Normal [facility] Comment on above: Performed By: #### T YPSCR ####Unless otherwise noted, all testing performed by [address] [phone]: [id number] Director: Miller Shah M.D. Creatinine, serumon 01-24-20 Creatinine 1.04 mg/dL Invalid Interpretation Code 0.4 - 1.1 mg/dL [facility] eGFR (non-black) The eGFR should be used for monitoring renal function only and not for medication dosing. Invalid Interpretation Code [facility] eGFR (non-black) 77 mL/min/{1.73_m2} Invalid Interpretation Code >=60 [facility] Interpretation and review of laboratory results Normal Invalid Interpretation Code [facility] BMPon 01-22-2017 Anion gap 16 mmol/L Invalid Interpretation Code 10 - 20 mmol/L [facility] Bicarbonate (HCO3) 25 mmol/L Invalid Interpretation Code 21 - 32 mmol/L [facility] BUN/Creatinine Ratio 11.0 mg/mg Invalid Interpretation Code 10.0 - 20.0 [facility] Calcium 9.0 mg/dL Invalid Interpretation Code 8.4 - 10.2 mg/dL [facility] Chloride 102 mmol/L Invalid Interpretation Code 98 - 108 mmol/L [facility] Creatinine 0.82 mg/dL Invalid Interpretation Code 0.4 - 1.1 mg/dL [facility] eGFR (non-black) 103 mL/min/{1.73_m2} Invalid Interpretation Code >=60 [facility] eGFR (non-black) The eGFR should be used for monitoring renal function only and not for medication dosing. Invalid Interpretation Code [facility] Glucose mass conc 96 mg/dL Invalid Interpretation Code 65 - 99 mg/dL [facility] Interpretation and review of laboratory results Normal Invalid Interpretation Code [facility] Potassium molar conc 3.9 mmol/L Invalid Interpretation Code 3.5 - 5.1 mmol/L [facility] Sodium 139 mmol/L Invalid Interpretation Code 135 - 145 mmol/L [facility] Urea nitrogen 9 mg/dL Invalid Interpretation Code 8 - 25 mg/dL [facility] CBC Auto Differentialon 01-02 Basophils Auto #/vol (Bld) 0.04 K/mcL Invalid Interpretation Code 0.00 - 0.30 [facility] Basophils/100 WBC Auto (Bld) 0.4 % Invalid Interpretation Code [facility] Eosinophils 0.10 K/mcL Invalid Interpretation Code 0.00 - 0.50 [facility] Eosinophils/100 leukocytes 0.9 % Invalid Interpretation Code [facility] Erythrocyte distribution width Auto Entitic volume (RBC) 12.2 % Invalid Interpretation Code 11.6 - 14.8 % [facility] Erythrocytes (RBC) 4.41 M/mcL Invalid Interpretation Code 4.00 - 5.20 [facility] Hematocrit (HCT) 41.5 % Invalid Interpretation Code 36 - 46 % [facility] Hemoglobin mass conc (Bld) 13.8 g/dL Invalid Interpretation Code 12 - 16 g/dL [facility] Immature granulocytes #/vol (Bld) 0.02 K/mcL Invalid Interpretation Code 0.00 - 0.30 [facility] Immature granulocytes/100 WBC (Bld) 0.20 % Invalid Interpretation Code [facility] Comment on above: The IG parameter is the percentage of metamyelocytes, myelocytes, and promyelocytes. Interpretation and review of laboratory results Abnormal Invalid Interpretation Code [facility] Lymphocytes 1.94 K/mcL Invalid Interpretation Code 0.90 - 4.00 [facility] Lymphocytes/100 leukocytes 17.4 % Invalid Interpretation Code [facility] MCH 31.3 pg Invalid Interpretation Code 26 - 34 pg [facility] MCHC mass conc (RBC) 33.3 g/dL Invalid Interpretation Code 31 - 37 g/dL [facility] MCV 94.1 fL Invalid Interpretation Code 80 - 100 fL [facility] Monocytes 0.92 K/mcL High 0.30 - 0.90 [facility] Monocytes/100 leukocytes 8.3 % Invalid Interpretation Code [facility] Neutrophils 8.12 K/mcL High 1.70 - 7.00 [facility] Neutrophils/100 WBC Auto (Bld) 72.8 % Invalid Interpretation Code [facility] Nucleated erythrocytes 0.00 K/mcL Invalid Interpretation Code 0.00 - 0.00 [facility] Nucleated erythrocytes/100 erythrocytes 0.0 % Invalid Interpretation Code [facility] Platelet mean volume (PMV) 9.8 fL Invalid Interpretation Code 9 - 15.5 fL [facility] Platelets 275 K/mcL Invalid Interpretation Code 150 - 400 [facility] WBC (Leukocytes) 11.14 K/mcL High 4.50 - 11.00 [facility] CBC w/ Diffon 01-22-2017 Creatinine The following orders were created for panel order CBC w/ Diff. Procedure Abnormality Status --------- ------ CBC Auto Differential[[id number]] Abnormal Final result Please view results for these tests on the individual orders. Invalid Interpretation Code [employer] Work Phone: Light Blue Topon 01-22-2017 Extra Tube Hold for add-ons. Invalid Interpretation Code [facility] Comment on above: Auto resulted. [place] Topon 01-22-2017 [place] Top Invalid Interpretation Code [facility] [place] Drawon 01-22-2017 Creatinine The following orders were created for panel order [place] Draw. Procedure Abnormality Status --------- ------ Gold Top[[id number]] Final result Light Blue Top[[id number]] Final result [place] Top[[id number]] Final result [place] Top[[id number]] Final result Please view results for these tests on the individual orders. Invalid Interpretation Code [employer] Work Phone: Vital Signs Date Time Vital Sign Value Performing Clinician Facility 09-23-2024 10:49-0400 Body height 165.1 cm ANIL ONEAL DO Work Phone: [facility] 09-23-2024 10:49-0400 Body mass index (BMI) [Ratio] 26.9 kg/m2 ANIL ONEAL DO Work Phone: [facility] 09-23-2024 10:49-0400 Body weight 73.25 kg ANIL ONEAL DO Work Phone: [facility] 09-23-2024 10:49-0400 Diastolic blood pressure 79 mm[Hg] ANIL ONEAL DO Work Phone: [facility] 09-23-2024 10:49-0400 Systolic blood pressure 130 mm[Hg] ANIL ONEAL DO Work Phone: [facility] 09-20-2024 15:50-0400 Body height 165.1 cm ANIL ONEAL DO Work Phone: [facility] 09-20-2024 15:50-0400 Body mass index (BMI) [Ratio] 26.9 kg/m2 ANIL ONEAL DO Work Phone: [facility] 09-20-2024 15:50-0400 Body weight 73.25 kg ANIL ONEAL DO Work Phone: [facility] 09-20-2024 15:46-0400 Heart rate 99 /min ANIL ONEAL DO Work Phone: [facility] 09-20-2024 15:46-0400 SaO2% (BldA) [Mass fraction] 100 % ANIL ONEAL DO Work Phone: [facility] 09-20-2024 15:45-0400 Body temperature 98.5 [degF] ANIL ONEAL DO Work Phone: [facility] 09-20-2024 15:45-0400 Diastolic blood pressure 75 mm[Hg] ANIL ONEAL DO Work Phone: 4(468)025-433962 [place] [address] 09-20-2024 15:45-0400 Respiratory rate 12 /min ANIL ONEAL DO Work Phone: [facility] 09-20-2024 15:45-0400 Systolic blood pressure 122 mm[Hg] ANIL ONEAL DO Work Phone: [facility] 09-16-2024 10:46-0400 Body height 165.1 cm ANIL ONEAL DO Work Phone: [facility] 09-16-2024 10:46-0400 Body mass index (BMI) [Ratio] 26.8 kg/m2 ANIL ONEAL DO Work Phone: 9(544)457-003862 [place] [address] 09-16-2024 10:46-0400 Body weight 73.08 kg ANIL ONEAL DO Work Phone: [facility] 09-16-2024 10:46-0400 Diastolic blood pressure 80 mm[Hg] ANIL ONEAL DO Work Phone: [facility] 09-16-2024 10:46-0400 Systolic blood pressure 128 mm[Hg] ANIL ONEAL DO Work Phone: 8(033)689-732262 [place] [address] 09-09-2024 10:23-0400 Body height 165.1 cm ANIL ONEAL DO Work Phone: 8(571)245-725562 [place] [address] 09-09-2024 10:19-0400 Body mass index (BMI) [Ratio] 26.9 kg/m2 ANIL ONEAL DO Work Phone: 7(150)950-675269 [place] [address] 09-09-2024 10:19-0400 Body weight 73.48 kg ANIL ONEAL DO Work Phone: 6(350)896-854369 [place] [address] 09-09-2024 10:19-0400 Diastolic blood pressure 81 mm[Hg] ANIL ONEAL DO Work Phone: 7(454)374-660469 [place] [address] 09-09-2024 10:19-0400 Systolic blood pressure 118 mm[Hg] ANIL ONEAL DO Work Phone: 5(079)923-227069 [place] [address] 08-23-2024 09:29-0400 Body height 165.1 cm ANIL ONEAL DO Work Phone: 4(705)955-341869 [place] [address] 08-23-2024 09:29-0400 Body mass index (BMI) [Ratio] 26.8 kg/m2 ANIL ONEAL DO Work Phone: 2(284)889-310969 [place] [address] 08-23-2024 09:29-0400 Body weight 73.08 kg ANIL ONEAL DO Work Phone: 2(725)210-191869 [place] [address] 08-23-2024 09:29-0400 Diastolic blood pressure 77 mm[Hg] ANIL ONEAL DO Work Phone: 4(069)447-834969 [place] [address] 08-23-2024 09:29-0400 Systolic blood pressure 117 mm[Hg] ANIL ONEAL DO Work Phone: 3(153)289-199469 [place] [address] 08-12-2024 10:40-0400 Body height 165.1 cm ANIL ONEAL DO Work Phone: 7(205)604-798169 [place] [address] 08-12-2024 10:36-0400 Body mass index (BMI) [Ratio] 26.2 kg/m2 ANIL ONEAL DO Work Phone: 4(276)298-645662 [place] [address] 08-12-2024 10:36-0400 Body weight 71.38 kg ANIL ONEAL DO Work Phone: 5(756)792-222869 [place] [address] 08-12-2024 10:36-0400 Diastolic blood pressure 74 mm[Hg] ANIL ONEAL DO Work Phone: 4(225)916-732469 [place] [address] 08-12-2024 10:36-0400 Systolic blood pressure 109 mm[Hg] ANIL ONEAL DO Work Phone: 5(643)437-803569 [place] [address] 07-29-2024 14:05-0400 Body height 165.1 cm ANIL ONEAL DO Work Phone: 8(749)858-972569 [place] [address] 07-29-2024 14:05-0400 Body mass index (BMI) [Ratio] 26.3 kg/m2 ANIL ONEAL DO Work Phone: 7(596)593-568369 [place] [address] 07-29-2024 14:05-0400 Body weight 71.72 kg ANIL ONEAL DO Work Phone: 1(364)827-467169 [place] [address] 07-29-2024 14:05-0400 Diastolic blood pressure 70 mm[Hg] ANIL ONEAL DO Work Phone: 2(349)773-523569 [place] [address] 07-29-2024 14:05-0400 Systolic blood pressure 110 mm[Hg] ANIL ONEAL DO Work Phone: 7(507)426-828169 [place] [address] 07-13-2024 08:36-0400 Body height 165.1 cm ANIL ONEAL DO Work Phone: 5(198)439-402969 [place] [address] 07-13-2024 08:36-0400 Body mass index (BMI) [Ratio] 25.8 kg/m2 ANIL ONEAL DO Work Phone: 6(942)765-337169 [place] [address] 07-13-2024 08:36-0400 Body weight 70.47 kg ANIL ONEAL DO Work Phone: 4(787)696-482869 [place] [address] 07-13-2024 08:36-0400 Diastolic blood pressure 64 mm[Hg] ANIL ONEAL DO Work Phone: 4(938)806-013762 [place] [address] 07-13-2024 08:36-0400 Systolic blood pressure 112 mm[Hg] ANIL ONEAL DO Work Phone: 5(030)507-187469 [place] [address] 06-14-2024 11:41-0400 Body mass index (BMI) [Ratio] 24.5 kg/m2 ANIL ONEAL DO Work Phone: 5(648)157-740369 [place] [address] 06-14-2024 11:41-0400 Body weight 66.73 kg ANIL ONEAL DO Work Phone: 1(668)084-190269 [place] [address] 06-14-2024 11:41-0400 Diastolic blood pressure 74 mm[Hg] ANIL ONEAL DO Work Phone: 2(806)910-360469 [place] [address] 06-14-2024 11:41-0400 Systolic blood pressure 113 mm[Hg] ANIL ONEAL DO Work Phone: 5(423)160-216969 [place] [address] 05-17-2024 09:30-0400 Body mass index (BMI) [Ratio] 23.3 kg/m2 ANIL ONEAL DO Work Phone: 1(927)442-391969 [place] [address] 05-17-2024 09:30-0400 Body weight 63.55 kg ANIL ONEAL DO Work Phone: 0(520)304-802369 [place] [address] 05-17-2024 09:30-0400 Diastolic blood pressure 74 mm[Hg] ANIL ONEAL DO Work Phone: 2(418)491-516269 [place] [address] 05-17-2024 09:30-0400 Systolic blood pressure 112 mm[Hg] ANIL ONEAL DO Work Phone: 0(337)966-738269 [place] [address] 04-14-2024 09:45-0500 Body mass index (BMI) [Ratio] 22.7 kg/m2 ANIL ONEAL DO Work Phone: 7(197)660-243969 [place] [address] 04-14-2024 09:45-0500 Body weight 61.91 kg ANIL ONEAL DO Work Phone: [facility] 04-14-2024 09:45-0500 Diastolic blood pressure 76 mm[Hg] ANIL ONEAL DO Work Phone: [facility] 04-14-2024 09:45-0500 Systolic blood pressure 115 mm[Hg] ANIL ONEAL DO Work Phone: [facility] 03-19-2024 11:32-0500 Body weight 61.23 kg ANIL ONEAL DO Work Phone: [facility] 03-19-2024 11:32-0500 Diastolic blood pressure 75 mm[Hg] ANIL ONEAL DO Work Phone: [facility] 03-19-2024 11:32-0500 Systolic blood pressure 121 mm[Hg] ANIL ONEAL DO Work Phone: [facility] 03-03-2024 12:07-0500 Body height 165.1 cm Aung Nunez [employer] Work Phone: [facility] 03-03-2024 12:07-0500 Body mass index (BMI) [Ratio] 22.38 kg/m2 Aung Nunez [employer] Work Phone: [employer] [facility] 03-03-2024 12:07-0500 Body temperature 98.8 [degF] Aung Nunez [employer] Work Phone: [employer] [facility] 03-03-2024 12:07-0500 Body weight 61.01 kg Aung Nunez [employer] Work Phone: [employer] [facility] 03-03-2024 12:07-0500 Diastolic blood pressure 58 mm[Hg] Aung Nunez [employer] Work Phone: [employer] 03-03-2024 12:07-0500 Heart rate 95 /min Aung Nunez [employer] Work Phone: [employer] 03-03-2024 12:07-0500 Respiratory rate 18 /min Aung Nunez [employer] Work Phone: [employer] [facility] 03-03-2024 12:07-0500 SaO2% (BldA) [Mass fraction] 99 % Aung Nunez [employer] Work Phone: [employer] 03-03-2024 12:07-0500 Systolic blood pressure 107 mm[Hg] Aung Nunez [employer] Work Phone: [employer] [facility] 02-20-2024 08:32-0500 Body height 165.1 cm Anil Oneal DO Work Phone: [facility] 02-20-2024 08:32-0500 Body mass index (BMI) [Ratio] 22.53 kg/m2 Anil Oneal DO Work Phone: [facility] 02-20-2024 08:32-0500 Body weight 61.42 kg Anil Oneal DO Work Phone: [facility] 02-20-2024 08:32-0500 Diastolic blood pressure 62 mm[Hg] Anil Oneal DO Work Phone: [facility] 02-20-2024 08:32-0500 Heart rate 76 /min Anil Oneal DO Work Phone: [facility] 02-20-2024 08:32-0500 Systolic blood pressure 90 mm[Hg] Anil Oneal DO Work Phone: [facility] 09-09-2023 16:16-0400 Body height 166.4 cm Corinna Jackson [employer] Work Phone: [employer] [facility] 09-09-2023 16:16-0400 Body mass index (BMI) [Ratio] 20.91 kg/m2 Corinna Jackson [employer] Work Phone: [employer] [facility] 09-09-2023 16:16-0400 Body temperature 98.01 [degF] Corinna Jackson [employer] Work Phone: [employer] [facility] 09-09-2023 16:16-0400 Body weight 57.88 kg Corinna Jackson [employer] Work Phone: [facility] [employer] [facility] 09-09-2023 16:16-0400 Diastolic blood pressure 68 mm[Hg] Corinna Jackson [employer] Work Phone: [facility] 09-09-2023 16:16-0400 Heart rate 73 /min Corinna Jackson [employer] Work Phone: [facility] 09-09-2023 16:16-0400 SaO2% (BldA) [Mass fraction] 99 % Corinna Jackson [employer] Work Phone: [facility] 09-09-2023 16:16-0400 Systolic blood pressure 110 mm[Hg] Corinna Jackson [employer] Work Phone: [facility] 04-04-2023 13:32-0500 Body height 166.4 cm Belkys [place] MD Work Phone: [facility] [employer] [facility] 04-04-2023 13:32-0500 Body mass index (BMI) [Ratio] 20.48 kg/m2 Belkys [place] MD Work Phone: [facility] 04-04-2023 13:32-0500 Body weight 56.7 kg Belkys Colorado MD Work Phone: [facility] 04-04-2023 13:32-0500 Respiratory rate 16 /min Belkys Colorado MD Work Phone: [facility] 03-26-2023 10:12-0500 Body height 166.4 cm Corinna Jackson [employer]AL INDUSTRY TEACH[employer] Work Phone: [facility] 03-26-2023 10:12-0500 Body mass index (BMI) [Ratio] 20.48 kg/m2 Corinna Jackson [employer]ERAL INDUSTRY TEACHER[employer] Work Phone: [facility] 03-26-2023 10:12-0500 Body temperature 97.39 [degF] Corinna Jackson [employer]ERAL INDUSTRY TEACHER[employer] Work Phone: [employer] [facility] 03-26-2023 10:12-0500 Body weight 56.7 kg Corinna Jackson [employer]ERAL INDUSTRY TEACHER[employer] Work Phone: [employer] [facility] 03-26-2023 10:12-0500 Diastolic blood pressure 66 mm[Hg] Corinna Jackson MINERAL INDUSTRY TEACHER[employer] Work Phone: [employer] [facility] 03-26-2023 10:12-0500 Heart rate 125 /min Corinna Jackson [employer]ERAL INDUSTRY TEACHER[employer] Work Phone: [employer] [facility] 03-26-2023 10:12-0500 SaO2% (BldA) [Mass fraction] 98 % Corinna Jackson [employer]ERAL INDUSTRY TEACHER[employer] Work Phone: [employer] [facility] 03-26-2023 10:12-0500 Systolic blood pressure 92 mm[Hg] Corinna Jackson [employer]ERAL INDUSTRY TEACHER[employer] Work Phone: [facility] 10-30-2022 13:56-0400 Body height 165.1 cm Sujey Del Rio [employer] Work Phone: [facility] 10-30-2022 13:56-0400 Body mass index (BMI) [Ratio] 20.47 kg/m2 Sujey Del Rio [employer] Work Phone: [facility] 10-30-2022 13:56-0400 Body temperature 98.1 [degF] Sujey Del Rio [employer] Work Phone: [facility] 10-30-2022 13:56-0400 Body weight 55.79 kg Sujey Del Rio [employer] Work Phone: [facility] 10-30-2022 13:56-0400 Diastolic blood pressure 79 mm[Hg] Sujey Del Rio [employer] Work Phone: [facility] 10-30-2022 13:56-0400 Heart rate 84 /min Sujey Del Rio [employer] Work Phone: [facility] 10-30-2022 13:56-0400 Respiratory rate 16 /min Sujey Del Rio [employer] Work Phone: [facility] 10-30-2022 13:56-0400 SaO2% (BldA) [Mass fraction] 100 % Sujey Del Rio [employer] Work Phone: [facility] 10-30-2022 13:56-0400 Systolic blood pressure 113 mm[Hg] Sujey Del Rio [employer] Work Phone: [facility] 12-07-2021 13:45-0400 Body height 166.4 cm Corinnaaniya Jackson MINERAL INDUSTRY TEACHER[employer] [facility] 12-07-2021 13:45-0400 Body mass index (BMI) [Ratio] 18.16 kg/m2 Corinnaaniya Jackson [employer]ERAL INDUSTRY TEACHER[employer] [facility] 12-07-2021 13:45-0400 Body temperature 97.11 [degF] Corinnaaniya Jackson MINERAL INDUSTRY TEACHER[employer] [facility] 12-07-2021 13:45-0400 Body weight 50.26 kg Corinnaaniya Jackson MINERAL INDUSTRY TEACHER[employer] Work Phone: [employer] [facility] 12-07-2021 13:45-0400 Diastolic blood pressure 62 mm[Hg] Corinnaaniya Jackson MINERAL INDUSTRY TEACHER[employer] [facility] 12-07-2021 13:45-0400 Heart rate 82 /min Corinnaaniya Jackson [employer]ERAL INDUSTRY TEACHER[employer] [facility] 12-07-2021 13:45-0400 SaO2% (BldA) [Mass fraction] 99 % Corinnaaniya Jacksno MINERAL INDUSTRY TEACHER[employer] Work Phone: [employer] [facility] 12-07-2021 13:45-0400 Systolic blood pressure 90 mm[Hg] Corinna Giselle MINERAL INDUSTRY TEACHER[employer] [facility] 10-23-2021 14:15-0400 Body height 166.4 cm Corinnaaniya Jackson MINERAL INDUSTRY TEACHER[employer] [facility] 10-23-2021 14:15-0400 Body mass index (BMI) [Ratio] 18.52 kg/m2 Corinna Jackson MINERAL INDUSTRY TEACHER[employer] Work Phone: [facility] 10-23-2021 14:15-0400 Body temperature 97.7 [degF] Corinna Jackson MINERAL INDUSTRY TEACHER[employer] Work Phone: [facility] 10-23-2021 14:15-0400 Body weight 51.26 kg Corinna Jackson MINERAL INDUSTRY TEACHER[employer] Work Phone: [facility] 10-23-2021 14:15-0400 Diastolic blood pressure 68 mm[Hg] Corinna Jackson MINERAL INDUSTRY TEACHER[employer] Work Phone: [facility] 10-23-2021 14:15-0400 Heart rate 91 /min Corinna Jackson MINERAL INDUSTRY TEACHER[employer] Work Phone: [facility] 10-23-2021 14:15-0400 SaO2% (BldA) [Mass fraction] 99 % Corinna Jackson MINERAL INDUSTRY TEACHER[employer] Work Phone: [facility] 10-23-2021 14:15-0400 Systolic blood pressure 104 mm[Hg] Corinna Jackson MINERAL INDUSTRY TEACHER[employer] Work Phone: [facility] 10-24-2020 14:28-0400 Body height 165.1 cm Ginny Wallis MD Work Phone: [facility] 10-24-2020 14:28-0400 Body mass index (BMI) [Ratio] 24.96 kg/m2 Ginny Wallis MD Work Phone: [facility] 10-24-2020 14:28-0400 Body weight 68.04 kg Ginny Wallis MD Work Phone: [facility] 10-24-2020 14:28-0400 Diastolic blood pressure 72 mm[Hg] Ginny Wallis MD Work Phone: [facility] 10-24-2020 14:28-0400 Heart rate 88 /min Ginny Wallis MD Work Phone: [facility] 10-24-2020 14:28-0400 Systolic blood pressure 108 mm[Hg] Ginny Wallis MD Work Phone: [facility] 10-20-2020 13:50-0400 Body height 165.1 cm Yaniv Fabian Ont Fang [facility] 10-20-2020 13:50-0400 Body mass index (BMI) [Ratio] 24.41 kg/m2 Yaniv Fabian Ont Fang [facility] 10-20-2020 13:50-0400 Body weight 66.54 kg Yaniv Fabian Ont Fang [facility] 10-20-2020 13:50-0400 Diastolic blood pressure 69 mm[Hg] Yaniv Fabian Ont Fang [facility] 10-20-2020 13:50-0400 Heart rate 72 /min [facility] 10-20-2020 13:50-0400 Systolic blood pressure 111 mm[Hg] Yaniv Fabian Ont Fang [facility] 01-23-2017 08:00-0500 Body Temperature 98.8 [degF] Gavin Ness [facility] Work Phone: 01-23-2017 08:00-0500 BP Diastolic 58 mm[Hg] Gavin Ness [facility] Work Phone: 01-23-2017 08:00-0500 BP Systolic 95 mm[Hg] Gavin Ness [facility] Work Phone: 01-23-2017 08:00-0500 Pulse (Heart Rate) 76 /min Gavin Ness [facility] Work Phone: 01-23-2017 08:00-0500 Pulse Oximetry 97 % Gavin Ness [facility] Work Phone: 01-23-2017 08:00-0500 Respiratory Rate 14 /min Gavin Ness [facility] Work Phone: 01-22-2017 18:52-0500 BMI (Body Mass Index) 20.97 kg/m2 Gavin Ness [facility] Work Phone: 01-22-2017 18:52-0500 Height 165.1 cm Gavin Ness [facility] Work Phone: 01-22-2017 18:52-0500 Weight 57.15 kg Gavin Ness [facility] Work Phone: Encounters Encounter Date Encounter Type Care Provider Facility Start: 09-30-2024 ambulatory ANIL ONEAL Facility: [facility] Start: 09-23-2024 End: 09-23-[address] Rachele Hummel MD -[facility] Work Phone: Start: 09-23-2024 End: 09-23-2024 ambulatory ANIL ONEAL DO Work Phone: -[facility] Start: 09-20-2024 Non-patient / Non-visit Zo Dyer CNM -[facility] Start: 09-20-2024 End: 09-20-2024 ambulatory ANIL ONEAL DO Work Phone: [facility] Start: 09-20-2024 End: 09-20-2024 Patient encounter procedure Zo Dyer CNM -[facility] Work Phone: Start: 09-16-2024 End: 09-16-[address] Mary Lundberg DO -[facility] Work Phone: Start: 09-16-2024 End: 09-16-2024 ambulatory ANIL ONEAL DO Work Phone: -[facility] Start: 09-13-2024 End: 09-13-2024 ambulatory ANIL ONEAL DO Work Phone: -Ultrasound [facility] Start: 09-13-2024 End: 09-13-[address] Mary Lundberg DO -[facility]trasound [facility] Work Phone: Start: 09-13-2024 End: 09-13-2024 ambulatory Mary Lundberg Facility:[facility] Start: 09-11-2024 End: 09-11-2024 [facility] Start: 09-09-2024 End: 09-09-2024 ambulatory ANIL ONEAL DO Work Phone: -[facility] Start: 09-09-2024 End: 09-09-[address] Mary Lundberg DO -[facility] Start: 09-09-2024 End: 09-09-[address] Mary Lundberg DO -[facility] Work Phone: Start: 09-09-2024 End: 09-09-2024 ambulatory ANIL ONEAL DO Work Phone: [facility] Start: 09-09-2024 End: 09-09-2024 ambulatory Mary Lundberg Facility:[facility] Start: 08-23-2024 End: 08-23-[address] Mary Lundberg DO -[facility] Work Phone: Start: 08-23-2024 End: 08-23-2024 ambulatory ANIL ONEAL DO Work Phone: [facility] Work Phone: Start: 08-12-2024 End: 08-12-2024 Patient encounter procedure Zo Dyer CNM -[facility] Work Phone: Start: 08-12-2024 End: 08-12-2024 ambulatory ANIL ONEAL DO Work Phone: [facility] Work Phone: Start: 07-29-2024 End: 07-29-2024 Patient encounter procedure Zo Dyer CNM -[facility] Work Phone: Start: 07-29-2024 End: 07-29-2024 ambulatory ANIL ONEAL DO Work Phone: [facility] Work Phone: Start: 07-13-2024 End: 07-13-2024 Patient encounter procedure Anila Oxforddamon LAFLEUR -[facility] Work Phone: Start: 07-13-2024 End: 07-13-2024 ambulatory ANIL ONEAL DO Work Phone: [facility] Work Phone: Start: 07-13-2024 End: 07-13-2024 ambulatory Anila Carmella Facility:[facility] Start: 06-14-2024 End: 06-14-[address] Mary Lundberg DO -[facility] Work Phone: Start: 06-14-2024 End: 06-14-2024 ambulatory ANIL ONEAL Facility:[facility] Start: 05-17-2024 End: 05-17-2024 Patient encounter procedure Zo Dyer CNM -[facility] Work Phone: Start: 05-17-2024 End: 05-17-2024 ambulatory ANIL ONEAL Facility:[facility] Start: 05-06-2024 End: 05-06-2024 ambulatory MARY CRAWFORD [facility] Start: 04-14-2024 End: 04-14-[address] Rachele Hummel MD -[facility] Work Phone: Start: 04-14-2024 End: 04-14-2024 ambulatory ANIL ONEAL Facility:[facility] Start: 03-19-2024 End: 03-19-[address] Mary Lundberg DO -[facility] Work Phone: Start: 03-19-2024 End: 03-19-2024 ambulatory ANIL ONEAL Facility:[facility] Start: 03-19-2024 End: 03-19-2024 ambulatory ANIL ONEAL Facility:[facility] Start: 03-03-2024 End: 03-03-2024 Office outpatient visit 15 minutes Aung RICHEY Work Phone: [facility] Comment on above: Fever, unspecified f ever cause (Primary Dx); Pharyngitis, unspecified etiology; Nausea Start: 03-03-2024 ambulatory [facility] Start: 02-27-2024 ambulatory ANIL ONEAL [facility] Start: 02-27-2024 End: 02-27-2024 Subsequent hospital visit by physician Anil Oneal DO Work Phone: [facility] Comment on above: Arrived Start: 02-20-2024 End: 02-20-2024 ambulatory [facility] Start: 02-20-2024 End: 02-20-2024 Office outpatient new 30 minutes Anil Oneal Work Phone: [facility] Comment on above: Palpitations (Primar y Dx); Encounter for immunization; Anxiety; Recurrent UTI; 8 weeks gestation of ([facility] Skin lesion Start: 02-19-2024 End: 02-19-2024 ambulatory ANIL ONEAL Facility:[facility] Start: 02-19-2024 End: 02-19-2024 ambulatory [facility] Facility:[facility] Start: 09-09-2023 End: 09-09-2023 Office outpatient visit 15 minutes Corinna Jackson APRN-[employer] Work Phone: [facility] Comment on above: Change in mole (Prim nay Dx) Start: 09-09-2023 ambulatory CORINNA Ruiz [facility] Start: 04-17-2023 ambulatory CORINNA Ruiz [facility] Start: 04-17-2023 End: 04-17-2023 Subsequent hospital visit by physician Jaimie Quintana APRN[employer] Work Phone: [facility] Comment on above: Arrived Start: 04-04-2023 End: 04-04-2023 Patient encounter procedure Belkys Colorado MD Work Phone: [facility] Comment on above: Recurrent UTI (Prima ry Dx); Hematuria, unspecified type Start: 04-04-2023 ambulatory BELKYS COLORADO [facility] Start: 03-28-2023 ambulatory JAIMIE QUINTANA [facility] Start: 03-26-2023 ambulatory CORINNA Ruiz [facility] Start: 03-26-2023 End: 03-26-2023 Office outpatient visit 25 minutes Corinna Ruiz Giselle [employer]AL INDUSTRY TE[employer]ER[employer] Work Phone: [facility] Comment on above: Dysuria (Primary Dx) ; Anxiety disorder, unspecified type; Chronic UTI (urinary tract infection); Left flank pain Start: 03-26-2023 ambulatory CORINNA Ruiz [facility] Start: 10-30-2022 End: 10-30-2022 ambulatory SUJEY REBEL [facility] Start: 10-30-2022 End: 10-30-2022 Office outpatient visit 25 minutes Sujey Hairston [place] [employer] Work Phone: [facility] Comment on above: UTI symptoms (Primar y Dx); Acute cystitis with hematuria Start: 12-07-2021 End: 12-07-2021 Office outpatient visit 15 minutes Corinna Jackson [employer] INDU[employer] TE[employer]ER[employer] Work Phone: [facility] Comment on above: Anxiety disorder, un specified type; Sleep disturbances Start: 10-23-2021 End: 10-23-2021 Patient encounter status Corinna Jackson [employer]AL INDU[employer] TE[employer]ER[employer] Work Phone: [facility] Start: 10-23-2021 End: 10-23-2021 Periodic preventive med est patient 18-39 yrs Corinna Jackson [employer] INDU[employer] TE[employer]ER[employer] Work Phone: [facility] Comment on above: Wellness examination (Primary Dx); Anxiety disorder, unspecified type; Sleep disturbances Start: 10-24-2020 End: 10-24-2020 Subsequent care visit Ginny Wallis MD Work Phone: [facility] LASER BEAM TRIM OPERATOR Comment on above: Supervision of other normal (Primary Dx) Start: 10-20-2020 End: 10-20-2020 Office outpatient visit 5 minutes Ginny Wallis MD Work Phone: [facility] [employer]ASER BEAM TRIM OPERATOR Comment on above: Encounter for superv ision of normal in third trimester, unspecified (Primary Dx) Start: 02-18-2018 End: 02-18-2018 Emergency department patient visit Blanca Singleton [place] Start: 01-06-2018 End: 2018 Evaluation and management of inpatient Edwina Jacobson [facility] Start: 11-20-2017 End: 11-20-2017 Emergency department patient visit Shmuel Millard Facility:[facility] Start: 01-22-2017 End: 01-23-2017 Ambulatory QAMAR MONTANA [facility] Start: 01-22-2017 End: 01-23-2017 Emergency department patient visit Gavin Ness Work Phone: [facility] Medical Observation Procedures Date Procedure Procedure Detail Performing Clinician Start: 09-20-2024 Measurement of pH in vaginal fluid specimen using nitrazine yellow for detection of rupture of amniotic membrane [employer] Work Phone: Comment on above: Amniotic fluid not p resent indicates No Rupture of FetalMembranes at time of specimen collection. Start: 09-13-2024 Ultrasound scan for growth ANIL ONEAL [facility] Phone: Start: 09-09-2024 Beta-hemolytic Strep tococcus culture [employer] [facility] Phone: Start: 07-13-2024 Serologic test for syphilis [employer] Phone: Start: 03-19-2024 Hepatitis B surface antigen measurement [employer] [facility] Phone: Start: 03-19-2024 Hepatitis C antibody measurement [employer] [facility] Phone: Comment on above: Non Reactive: < 0.8 Equivocal: >/= 0.8 to < 1.0 Reactive: >/= 1.0The CDC requires that a reactive/equivocal HCV antibody result be sent out for confirmation. HCV Quant by PCR testing. Start: 03-19-2024 Procedure ANILNIKOLE VERMA DO Work Phone: Start: 03-19-2024 Rubella IgG measurement ANIL ONEAL DO Work Phone: Comment on above: Antibody Results Int erpretation of Immune Status Non Reactive Presumed Non-Immune Equivocal Equivocal Reactive Presumed Immune Start: 03-03-2024 Ia[facility]adoo influenza Drew Nunez [employer]AL INDU[employer] TE[employer]ER[employer] Work Phone: Start: 04-17-2023 Ct abdomen & pelvis w/o contrast material Jaimie Merino Simone [employer]AL INDUSTRY TEACHER[employer] Work Phone: Start: 04-04-2023 Urnls dip stick/tabl et rgnt auto w/o microscopy Belkys Colorado MD Work Phone: Start: 04-04-2023 Cystourethroscopy Lan Colorado MD Work Phone: Start: 03-26-2023 Urnls dip stick/tabl et rgnt auto w/o microscopy Corinna Jackson [employer]AL INDUSTRY TE[employer]ER[employer] Work Phone: Start: 10-30-2022 Urnls dip stick/tabl et rgnt auto w/o microscopy Sujey Del Rio [employer] Work Phone: Start: 10-20-2020 Urine drug screening Gomez Wallis MD Work Phone: Plan of Treatment Date Care Activity Detail Author Start: 2056 RSV VACCINE (1 - 1-dose 60+ series) RSV VACCINE (1 - 1-dose 60+ series) [facility] Start: 01-06-2046 Zoster Vaccines (1 of 2) Zoster Vaccines (1 of 2) [facility] Start: 02-21-2025 End: 02-21-2025 Patient encounter procedure 02/21/2025 10:00 AM EST Office Visit [facility] [address] [facility] [facility] [address] [place] [id number] Anil Oneal DO [address] [facility] [address] [place] [address] [facility] Start: 09-20-2024 Nonstress test [facility] Start: 09-20-2024 Obstetric monitoring [facility] Start: 09-20-2024 Vital signs measurements [facility] Start: 09-20-2024 [facility] Start: 09-20-2024 Patient discharge [facility] Start: 07-13-2024 CBC W Auto Differential panel - Blood [facility] Start: 07-13-2024 Measurement of glucose 2 hours after glucose challenge for glucose tolerance test [facility] Start: 07-13-2024 Serologic test for syphilis [facility] Start: 07-13-2024 [facility] Start: 02-20-2024 End: 02-19-2026 US Heart Transthoracic Transthoracic Echo (TTE) Complete Echocardiography Routine Palpitations Expected: 02/20/2024 (Approximate), Expires: 02/19/2026 [facility] Service Area Work Phone: Comment on above: Expected: 02/20/2024 (Approximate), Expi res: 02/19/2026 Start: 11-02-2023 COVID-19 Vaccine ( season) COVID-19 Vaccine ( season) [facility] Start: 11-02-2023 COVID-19 VACCINE ( season) COVID-19 VACCINE ( season) [facility] Start: 11-02-2023 Influenza vaccination INFLUENZA VACCINE (#1) [facility] Start: 09-19-2023 End: 09-19-2023 Patient encounter procedure 09/19/2023 9:10 AM EDT Office Visit [facility] [address] [place] [id number] Corinna Jackson, [employer] INDU[employer]Y TE[employer] [address] [place] [id number] [facility] Start: 04-18-2023 End: 04-18-2023 Patient encounter procedure 04/18/2023 2:00 PM EST Office Visit [facility] [address] [place] [place] [address] Jaimie Quintana, [employer]AL INDUSTRY TE[employer] [address] [place] [address] [facility] Start: 11-01-2022 COVID-19 VACCINE ( season) COVID-19 VACCINE ( season) [facility] Start: 11-01-2022 Influenza vaccination [facility] Start: 10-23-2022 History and physical examination, annual for health maintenance Wellness Visit [facility] Start: 12-15-2021 COVID-19 VACCINE (4 - Booster for Pfizer series) COVID-19 VACCINE (4 - Booster for Pfizer series) [facility] Start: 12-15-2021 COVID-19 Vaccine (4 - Pfizer series) COVID-19 Vaccine (4 - Pfizer series) [facility] Start: 11-22-2021 End: 11-22-2021 Patient encounter procedure 11/22/2021 Office Visit Family Medicine Corinna Jackson, [employer] IN[employer] TE[employer] [address] [place] [address] [facility] Start: 11-01-2021 Influenza vaccination INFLUENZA VACCINE (#1) [facility] Start: 10-23-2021 End: 10-23-2022 CBC,PLATELETS CBC,PLATELETS Lab Routine Wellness examination Expected: 10/23/2021, Expires: 10/23/2022 [facility] Comment on above: Expected: 10/23/2021, Expires: 3 Start: 10-23-2021 End: 10-23-2022 Comprehensive metabolic 2000 panel - Serum or Plasma COMPREHENSIVE METABOLIC PANEL Lab Routine Wellness examination Expected: 10/23/2021, Expires: 10/23/2022 [facility] Comment on above: Expected: 10/23/2021, Expires: 3 Start: 10-23-2021 End: 10-23-2022 LIPID PANEL W CALCULATED LDL LIPID PANEL W CALCULATED LDL Lab Routine Wellness examination Expected: 10/23/2021 (Approximate), Expires: 10/23/2022 [facility] Comment on above: Expected: 10/23/2021 (Approximate), Expi res: 10/23/2022 Start: 10-23-2021 End: 10-23-2022 TSH W/FT4 REFLEX TSH W/FT4 REFLEX Lab Routine Wellness examination Expected: 10/23/2021, Expires: 10/23/2022 [facility] Comment on above: Expected: 10/23/2021, Expires: 3 Start: 10-23-2021 End: 10-23-2022 Urinalysis, reagent strip without microscopy URINALYSIS, MACRO Fluids Routine Wellness examination Expected: 10/23/2021, Expires: 10/23/2022 [facility] Comment on above: Expected: 10/23/2021, Expires: 3 Start: 05-25-2021 Screening for malignant neoplasm of cervix CERVICAL CANCER SCREENING DISCUSSION [facility] Start: 11-07-2020 End: 11-07-2020 Follow-up encounter 11/07/2020 Follow Up Visit LASER BEAM TRIM OPERATOR Ginny Wallis MD [address] [place] [phone] [facility] LASER BEAM TRIM OPERATOR Start: 11-01-2020 Influenza vaccination INFLUENZA VACCINE (#1) [facility] Start: 10-24-2020 End: 10-24-2020 ambulatory 10/24/2020 Initial Visit LASER BEAM TRIM OPERATOR Ginny Wallis MD [address] [place] [phone] [facility] LASER BEAM TRIM OPERATOR Start: 10-24-2020 End: 10-24-2020 Patient encounter procedure 10/24/2020 Appointment Ultrasound Ginny Wallis MD [address] [place] [id number] [facility] LASER BEAM TRIM OPERATOR Start: 01-06-2018 DTaP/Tdap/Td Vaccines (1 - Tdap) DTaP/Tdap/Td Vaccines (1 - Tdap) [facility] Start: 01-06-2017 Screening for malignant neoplasm of cervix [facility] Start: 11-01-2016 Influenza vaccination SEQUENTIAL INFLUENZA VACCINE (#1) [facility] Work Phone: Start: 01-06-2015 Hepatitis B vaccination HEP B VACCINE (1 of 3 - 19+ 3-dose series) [facility] Start: 01-06-2015 Hepatitis B Vaccines (1 of 3 - 19+ 3-dose series) Hepatitis B Vaccines (1 of 3 - 19+ 3-dose series) [facility] Start: 01-06-2015 Third diphtheria, tetanus and acellular pertussis (DTaP) vaccination TDAP (ADULT) [facility] Start: 01-06-2014 Hepatitis C screening Hepatitis C Screening [facility] Start: 01-06-2014 Tetanus vaccination TETANUS [facility] Start: 2012 Screening for Chlamydia trachomatis CHLAMYDIA SCREEN [facility] Start: 01-06-2011 HIV screening [facility] Start: 01-06-2009 Varicella vaccination Varicella Vaccines (1 of 2 - 13+ 2-dose series) [facility] Start: 2008 COVID-19 VACCINE (1) COVID-19 VACCINE (1) [facility] Start: 2008 Depression screening using PHQ-9 (Patient Health Questionnaire 9) score Depression Screening (PHQ-2/9) [facility] Start: 01-06-2007 Vaccination for human papillomavirus [facility] Start: 01-06-1997 MMR Vaccines (1 of 1 - Standard series) MMR Vaccines (1 of 1 - Standard series) [facility] Start: 1996 GONORRHEA SCREEN GONORRHEA SCREEN [facility] Start: 1996 Hepatitis B vaccination HEP B VACCINE (1 of 3 - 3-dose series) [facility] Start: 1996 Hepatitis C antibody, confirmatory test HEPATITIS C VIRUS SCREENING [facility] Start: 1996 Hepatitis C screening HEPATITIS C VIRUS SCREENING [facility] Start: 1996 HIV screening HIV Screening [facility] Start: 1996 Lipid panel Lipid Panel [facility] Start: 1996 Screening for malignant neoplasm of cervix PAP SMEAR [facility] Work Phone: Start: 1996 Tetanus vaccination [facility] Start: 1996 Yearly Adult Physical Yearly Adult Physical [facility] Bacteria identified in Unspecified specimen by Aerobe culture Urine culture Microbiology Routine UTI symptoms 10/30/2022 2:17 PM EDT [facility] Work Phone: Bacteria identified in Urine by Culture URINE CULTURE Microbiology Routine 12/07/2021 2:30 PM EDT [facility] End: 02-27-2024 Echocardiography [facility] Work Phone: Comment on above: 1 Occurrences starting 02/27/2024 until 02/27/2024 Erythrocyte mean corpuscular volume determination [facility] Hematocrit [Volume Fraction] of Blood [facility] Hemoglobin [Mass/vol ume] in Blood [facility] Leukocytes [#/volume ] in Blood [facility] Mean corpuscular hemoglobin concentration determination [facility] Mean corpuscular hemoglobin determination [facility] Neutrophil count [facility] Neutrophil percent differential count [facility] Patient Education Kick Counts ED False Labor OB Triage: Return to Hospital or Notify Physician if you Experience: [facility] Work Phone: Platelets [#/volume] in Blood [facility] POCT RAPID STREP A POCT RAPID ST REP A Point of Care Testing Routine Fever, unspecified fever cause Ordered: 03/03/2024 [facility] Comment on above: Ordered: 03/03/2024 Red blood cell count [facility] Red cell distributio n width determination [facility] Streptococcus agalac tiae [Presence] in Unspecified specimen by Organism specific culture [facility] Ultrasound scan for growth [facility] VARICELLA IGG AB (IM M STATUS) VARICELLA IGG AB (IMM STATUS) Lab Routine Encounter for supervision of normal in third trimester, unspecified 10/20/2020 2:21 PM EDT [facility] Work Phone: [facility] Immunizations Immunization Date Immunization Notes Care Provider Sameer butt 07-13-2024 tetanus toxoid, redu trice diphtheria toxoid, and acellular pertussis vaccine, adsorbed ANIL ONEAL DO Work Phone: [facility] 12-20-2024 Seasonal, trivalent, recombinant, injectable influenza vaccine, preservative free Anil Oneal DO Work Phone: [facility] Work Phone: 12-22-2018 influenza, injectabl e, quadrivalent, preservative free Corinna Jackson [employer] Work Phone: [facility] 12-22-2018 influenza virus vaccine, unspecified formulation Corinna Jackson [employer] Work Phone: [facility] Payers Date Payer Category [facility]ayer [employer] ( and others) [id number] 02-06-2024 [employer] ( [employer] others) [id number] 02-01-2024 () [facility] [id number] 02-01-2024 [employer] ( and others) [id number] 01-21-2024 Self-pay 10-30-2022 [facility] [id number] 10/30/2022-Present [phone] [place] [phone] .[id number] 10-30-2022 [employer] ( and others) [id number] 03-03-2021 [employer] ( and others) [facility] [id number] 03/03/2021-Present [address] [place] [address] [id number] .[id number] 03-03-2021 [employer] ( and others) [id number] 03-03-2021 [employer] ( and others) [id number] 10-19-2020 [employer] ( and others) [facility] [id number] 10/19/2020-Present [address] [place] [address] [id number] .[id number] 03-03-2016 Unknown [id number] 2.16.840.1.723009.3.249.1 3 1996 Unknown [id number] 2.16.840.1.692982.3.579.2 .903 1996 Unknown [id number] 2.16.840.1.804106.3.579.2 .983 1996 Unknown [id number] 2.16.840.1.916067.3.579.2 .1244 1996 Unknown [id number] 2.16.840.1.689481.3.579.2 .983 1996 Unknown [id number] 2.16.840.1.713049.3.579.2 .983 1996 Unknown [id number] 2.16.840.1.044097.3.579.2 .983 1996 Unknown [id number] 2.16.840.1.282210.3.579.2 .983 1996 Unknown [id number] 2.16.840.1.315863.3.579.2 .983 1996 Unknown [id number] 2.16.840.1.071054.3.579.2 .983 1996 Unknown [id number] 2.16.840.1.557770.3.579.2 .983 1996 Unknown [id number] 2.840.1.269860.3.579.2 .479 1996 Unknown [id number] 2..840.1.624912.3.579.2 .903 [facility] ( and others) [id number] Unknown [id number] 2.840.1.867490.3.579.2 .462 Unknown [id number] 2.840.1.803348.3.579.2 .462 Unknown [id number] 2.840.1.123795.3.579.2 .462 Unknown [id number] 2.840.1.796760.3.579.2 .462 Unknown [id number] 2.840.1.317250.3.579.2 .462 Unknown [id number] 2.840.1.651801.3.579.2 .462 Unknown [id number] 2.840.1.349029.3.579.2 .462 Unknown [id number] 2.840.1.465143.3.579.2 .462 Unknown [id number] 2.840.1.759170.3.579.2 .462 Unknown [id number] 2.840.1.572831.3.579.2 .462 Unknown [id number] 2.840.1.127426.3.579.2 .462 Unknown [id number] 2.840.1.924748.3.579.2 .462 Unknown [id number] 2.840.1.369528.3.579.2 .462 Unknown [id number] 2.840.1.720852.3.579.2 .462 Unknown [id number] 2.840.1.962870.3.579.2 .462 Unknown [id number] 2.16.840.1.798299.3.579.2 .462 Unknown [id number] 2.16.840.1.379797.3.579.2 .462 Unknown [id number] 2.16.840.1.593278.3.579.2 .462 Unknown [id number] 2.16.840.1.112813.3.579.2 .462 Unknown [id number] 2.16.840.1.198652.3.579.2 .462 Unknown [id number] 2.16.840.1.191139.3.579.2 .462 Social History Date Type Detail Facility Start: 01-22-2017 End: 07-13-2024 Tobacco smoking status LAIS Never smoker [facility] Work Phone: Start: 1995 Sex Assigned At Not on file [facility] Work Phone: Start: 10-20-2020 End: 03-26-2023 Tobacco use and exposure Never used [facility] Start: 10-20-2020 End: 02-22-2024 Alcohol intake Ex-drinker (finding) [facility] Start: 03-18-2020 [facility] Start: 10-23-2021 End: 03-03-2024 Alcohol intake Lifetime non-drinker (finding) [facility] Start: 10-30-2022 Alcohol intake Current non-drinker of alcohol (finding) [facility] Start: 01-22-2017 End: 10-23-2021 History of Social function [facility] Start: 01-22-2017 End: 10-23-2021 Tobacco use panel [facility] Start: 11-20-2017 Gender identity Identifies as female gender (finding) [facility] Start: 11-20-2017 Sexual orientation Heterosexual (finding) [facility] [place] Depression Score 3 [facility] Start: 02-10-2024 End: 02-20-2024 Exposure to SARS-CoV-2 (event) Not sure [facility] Start: 1995 Sex Assigned At Female [facility] Clinical Notes 10-20-2020 to 09-23-2024 Note Date & Type Note Facility 09-23-2024 Progress note [facility] 09-16-2024 Progress note [facility] 09-14-2024 Radiology Diagnostic study note [facility] Imaging Services [address] [place] [address] OB Limited With Biometrics MR#: [id number] Acct: [id number] Name: AKOSUA NUNEZ Rep #: [id number] : 1995 F 29 From: Andry Mcduffie MD PCP: ANIL ONEAL DO Status: REG CLI Study:OB Limited With Biometrics Date of Exam : 09/13/24 Exam# [id number] Ordering Dr: Mary Burnette DO PROCEDURE: OB LIMITED WITH BIOMETRICS 09/13/2024 REASON FOR EXAM: LARGE FOR GESTATIONAL AGE TECHNIQUE: OB LIMITED WITH BIOMETRICS COMPARISON: None FINDINGS LMP: December 26, 2023. Number: 1 Position: Vertex Placental Position: Anterior and not low-lying Placental Abnormalities: No evidence of previa. DIMENSIONS: Biparietal Diameter: 9.13 cm: 37 weeks and 0 days: 59 percentile./ Head Circumference: 33.89 cm: 39 weeks and 0 days: 63rd percentile/ Abdominal Circumference: 33.45 cm: 37 weeks and 2 days: 64 percentile/ Femur Length: 7.03 cm: 36 weeks and 0 days:/18 percentile ESTIMATED WEIGHT: 3118 g plus/-468 g ESTIMATED WEIGHT PERCENTILE (24+ weeks): 50 ESTIMATED GESTATIONAL AGE: Baseline: 37 weeks and 3 days By Ultrasound: 37 weeks and 3 days ESTIMATED DATE OF DELIVERY: Baseline: October 01, 2024 By Ultrasound: October 01, 2024 BIOPHYSICAL ASSESSMENT: Amniotic Fluid Volume: 3.5 cm Amniotic Fluid Index: 10.6 (8-24 cm normal range) Cardiac Motion: 153 beats per minute (average) Trunk and Limb Motion: Present. MATERNAL ANATOMY: Adnexa: Neither maternal ovary is successfully identified. US/OB Limited With Biometrics IMPRESSION: Single live intrauterine gestation with a mean gestational age of 37 weeks and 3days. Reading Location: [facility] CC: Dr. 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 * Risks, benefits, alternatives and possible complications have been discussed in detail with the patient. Pre-admission, admission, and post admission procedures and expectations were discussed in detail. All questions answered, all appropriate consents will be signed at the Hospital. Admission is for decreased movement. Subjective: Chief Complaint Patient presents with Decreased Movement Also c/o UC off and on since yesterday, not super consistent or painful today, just mild cramping Akosua Nunez is a 29 y.o. female with Estimated Date of Delivery: 10/01/24 at 37w1d gestation who is being admitted for observation. Her current obstetrical history is significant for no obstetrical problems. Patient reports cramping and decreased FM. Movement: decreased. History: Past Medical History: Diagnosis Date Patient denies medical problems Past Surgical History: Procedure Laterality Date BREAST AUGMENTATION Bilateral 2022 Family History Problem Relation Age of Onset GI problems Neg Hx Social History [1] Allergy Information: I have reviewed the patient's allergies. Augmentin [amoxicillin-pot clavulanate] Home Medications: Outpatient Medications as of 09/11/2024 Medication Sig escitalopram oxalate (LEXAPRO) 10 MG tablet Take 1 (one) tablet (10 mg total) by mouth daily . Objective: Vital signs in last 24 hours: Temp: [98 degrees F (36.7 degrees C)] 98 degrees F (36.7 degrees C) Heart Rate: [88] 88 Resp: [18] 18 BP: (110)/(72) 110/72 General appearance: alert, appears stated age, and cooperative Lungs: clear to auscultation bilaterally Heart: regular rate and rhythm, S1, S2 normal, no murmur, click, rub or gallop Abdomen: gravid Pelvic: external genitalia normal Extremities: extremities normal, atraumatic, no cyanosis or edema Skin: Skin color, texture, turgor normal. No rashes or lesions Neurologic: Grossly normal Pelvis: Cervix: 1cm FHT: 140 BPM Uterine Size: size equals dates Consistency: firm Dilation - PW: 1 Effacement (%) - PW: 60 Station - PW: -2 Laboratory and Additional Data Reviewed: Laboratory 09/11/24 10:54 AM Medications 09/11/24 10:54 AM Transcriptions 09/11/24 10:54 AM [1] Social History Socioeconomic History Marital status: Tobacco Use Smoking status: Never Smokeless tobacco: Never Vaping Use Vaping status: Never Used Substance and Sexual Activity Alcohol use: No Drug use: No Social History Narrative Lives independently Social Drivers of Health Food Insecurity: No Food Insecurity (09/11/2024) Hunger Vital Sign Worried About Running Out of Food in the Last Year: Never true Ran Out of Food in the Last Year: Never true Transportation Needs: No Transportation Needs (09/11/2024) PRAPARE - Transportation Lack of Transportation (Medical): No Lack of Transportation (Non-Medical): No Housing Stability: Low Risk (09/11/2024) Housing Stability Vital Sign Unable to Pay for Housing in the Last Year: No Number of Times Moved in the Last Year: 1 Homeless in the Last Year: No AUTHENTICATED BY WARREN WALKER, ON 09/11/2024 10:54:22 [facility] 09-09-2024 Progress note [facility] 08-23-2024 Progress note [facility] 08-12-2024 Progress note [facility] 07-29-2024 Progress note [facility] 07-29-2024 Progress note Note Date/Time July 29, 2024 2:14pm [facility] [address], [address] [place] [address] OFFICE VISIT Date of Service: 07/29/24 MR#: [id number] Acct: [id number] Name: AKOSUA NUNEZ Rep #: [id number] : 1995 Provider: DAVID Dyer Age/Sex: 29/F Location: [facility] Status: Signed Intake Vital Signs 05/17/24 09:30 07/13/24 09:12 07/29/24 14:05 Height 5 ft 5 in 5 ft 5 in Weight: 158 lb 2 oz BMI 26.3 BP 110/70 Intake Visit Reasons: 30 WK OB Chief Complaint: 30wk OB Web Worker Required: No Is patient in pain?: No Allergies No Known Allergies Allergy (Unverified 07/29/24 14:03) Medications ?Medication ?Instructions ?Recorded ?Confirmed ?Type PNV 153-FA 400 mcg-om3 35 mg-dha tab PO 02/06/2407/29 History 25 mg-epa 5 mg-fish oil chew tablet breast pump #1 ea 05/24/24 07/29/24 Rx Last Menstrual Period: 12/26/23 Have you fallen in the past year?: No PFSH PFSH Surgical History H/O cystoscopy H/O breast augmentation Family History Grandfather Cancer Maternal- unsure what kind Heart disease Pacemaker- Maternal Mother Mitral valve disease Grandmother Mitral valve disease Maternal Social History adopted: No household members: spouse and children number of children: 2 current occupational status: employed 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 occupational exposures/hazards: No pets and animals: Yes pets and animals: dog(s) history of recent travel: No sexually active: Yes Smoking Status: Never smoker alcohol intake: never substance use type: does not use well-balanced diet: daily or most days caffeine: Yes Type: coffee Number of servings: 1 eating out: rarely or never during the past year weight has: remained stable what type of physical activity do you participate in: none kvng/church: [employer] seatbelt use: always do you feel safe at home: Yes 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 Date Name GA/Weeks Outcome Route Bth Weight Infant Gen Labor Lgth Anesthesia Del Locatn Provider FOB 01/06/18 Melanie 40 live - full term 6#13oz Female none [facility] Dr. Edwina Maldonado 11/29/20 Sameer 38 live - full term 6#10oz Male epidural [facility] in [place] Dr. Devante Maldonado HPI 30 WK OB Details: AKOSUA NUNEZ is a 29 year old who presents for routine OB visit. OB Visit FRANCOISE Calculator Estimated Delivery Date Method Current WG Current Estimate 10/01/24 LMP (Certain) 30w 6d Expected Delivery Route/Plan Labor Preferences- CB/BF classes: no labor support person: Joel labor intervention preferences: [] pain management options preferred: limited cut cord/dad catch: yes : yes PP control planned: discussed discussed possible routes of delivery and associated risks: [] special requests: [] Specific Issue/Plans Covid status: [] Flu vaccine: [] Tdap vaccine: given Rhogam: NA LARC form signed: Yes Problem list reviewed and updated with the most current plan of care details and appropriate orders placed. Relevant counseling for the gestational age provided. Continue routine care and follow up unless otherwise noted in visit notes/problem list details Initial Weight: 131 lb Date -?-?-?-?-?-?-?-?-?-?-?-?- EGA Weight BP Urine Prot -?-?-?-?-?-?-?-?-?-?-?-?- Glucose FHR FuHt Pres Dilation -?-?-?-?-?-?-?-?-?-?-?-?- Effaced St Visit Note 02/19/24 -?-?-?-?-?-?-?-?-?-?-?-?- 7w 6d 131 lb (+0 oz) 83/63 -?-?-?-?-?-?-?-?-?-?-?-?- 161 -?-?-?-?-?-?-?-?-?-?-?-?- KW- CRL cons wit h dates. small MAMADOU noted. desires NIPT. 03/19/24 -?-?-?-?-?-?-?-?-?-?-?-?- 12w 0d 135 lb (+4 lb) 121/75 Negative -?-?-?-?-?-?-?-?-?-?-?-?- Negative 163 -?-?-?-?-?-?-?-?-?-?-?-?- JV- CRL still co nsistent with LMP. plans to do NIPT today. does not want to know gender. 04/14/24 -?-?-?-?-?-?-?-?-?-?-?-?- 15w 5d 136 lb 8 oz (+5 lb 8 oz) 115/76 Negative -?-?-?-?-?-?-?-?-?-?-?-?- Negative 145 -?-?-?-?-?-?-?-?-?-?-?-?- SM- no vb crampi ng 05/17/24 -?-?-?-?-?-?-?-?-?-?-?-?- 20w 3d 140 lb 2 oz (+9 lb 2 oz) 112/74 Negative -?-?-?-?-?-?-?-?-?-?-?-?- Negative 150 -?-?-?-?-?-?-?-?-?-?-?-?- KW- no vb/crampi ng. good fm. anatomy US reviewed. 06/14/24 -?-?-?-?-?-?-?-?-?-?-?-?- 24w 3d 147 lb 2 oz (+16 lb 2 oz) 113/74 -?-?-?-?-?-?-?-?-?-?-?-?- 145 24 -?-?-?-?-?-?-?-?-?-?-?-?- JV- no lof, vagi nal bleeding, or dec fm. does has some vision changes, especially at night. Recommend eye exam . tdap and gct next visit. 07/13/24 -?-?-?-?-?-?-?-?-?-?-?-?- 28w 4d 155 lb 6 oz (+24 lb 6 oz) 112/64 Negative -?-?-?-?-?-?-?-?-?-?-?-?- Negative 166 28 -?-?-?-?-?-?-?-?-?-?-?-?- MH-No VB, lof. G ood Fm. Larc, tdap. 28 wk labs pending 07/29/24 -?-?-?-?-?-?-?-?-?-?-?-?- 30w 6d 158 lb 2 oz (+27 lb 2 oz) 110/70 Negative -?-?-?-?-?-?-?-?-?-?-?-?- Negative 145 30 -?-?-?-?-?-?-?-?-?-?-?-?- KW- no vb/lof/cr amping. good fm. no concerns today. ACOG First Trimester First Trimester: Desire for , Alcohol, Tobacco Cessation, Illicit/Recreational Drug/Substance Use, Intimate Partner Violence, Barriers to care, Anticipated Course of Care, Use of Any medications, Sexual activity, Exercise, Dental Care, Sauna/Hot tub use, Seat Belt use, Childbirth classes/Hospital facilities, Travel, Indications for Ultrasound and Screening for Aneuploidy; Discussed Unstable Housing, Discussed Communication Barriers, Discussed Environmental/Work Hazards and Discussed Toxoplasmosis Precations Second Trimester Second Trimester: Signs and Symptoms of Labor, Selecting a care provider, Reproductive Life Planning & Contreception, Care Planning and Depression/Anxiety; Discussed Tobacco Cessation and Discussed Intimate Partner Violence Third Trimester Third Trimester: Pain Management Plans, Labor support person(s), Immediate Larc, Circumcision preference, Signs and Symptoms of Preeclampsia, Feeding, [place] Education and Family Medical Leave or Disability Forms ROS Const Reports system reviewed and no additional complaints, except as documented Eyes Reports system reviewed and no additional complaints, except as documented ENT Reports system reviewed and no additional complaints, except as documented Card Reports system reviewed and no additional complaints, except as documented Resp Reports system reviewed and no additional complaints, except as documented GI Reports system reviewed and no additional complaints, except as documented, Denies nausea and Denies vomiting Reports system reviewed and no additional complaints, except as documented Musc Reports system reviewed and no additional complaints, except as documented Skin/Breast Reports system reviewed and no additional complaints, except as documented Neuro Yes system reviewed and no additional complaints, except as documented Psych Reports system reviewed and no additional complaints, except as documented Endo Reports system reviewed and no additional complaints, except as documented Ian/Lymph Reports system reviewed and no additional complaints, except as documented Aller/Immun Reports system reviewed and no additional complaints, except as documented Exam Const General: cooperative, healthy appearing and no acute distress Orientation: alert, awake and oriented x3 Neck Neck: normal visual inspection and full ROM Resp Effort & Inspection: normal respiratory effort, able to speak in complete sentences and symmetric chest movement GI Inspection: normal to inspection Palpation: soft and other Other: gravid Skin General: no rashes or lesions noted Neuro General: patient alert, patient awake and patient oriented x3 Cognition: normal cognition Speech: speech normal Gait: normal gait Motor: muscle tone normal throughout Extrem General: normal to inspection and full ROM Psych Appearance: grossly normal Mental Status: mental status grossly normal Mood: congruent mood Affect: normal affect Speech and Movement: speech and movement normal Attitude: cooperative Thought Process: normal Thought Content: normal Judgment: judgment good Results POC Urinalysis 2 Dip (Clinic) Office Urine Glucose Negative Last Edit by Emma Shin on 07/29/24 14:09 Office Urine Protein Negative Last Edit by Emma Shin on 07/29/24 14:09 Coding Level of Care Code OB Routine Diagnoses History of anxiety Z86.59 History of recurrent UTI (urinary tract infection) Z87.440 Supervision of high risk in third trimester O09.93 Trimester: third trimester 30 weeks gestation of Z3A.30 Weeks of gestation: 30 weeks Assessment and Plan Assessment and Plan (1) History of anxiety: Status: Acute Comment: stopped lexapro in November,. Stable (2) History of recurrent UTI (urinary tract infection): Status: Acute Comment: last UTI was December (3) Supervision of high-risk : Status: Acute Qualifiers: Trimester: third trimester Qualified Code(s): O09.93 - Supervision of high risk , unspecified, third trimester Comment: PRR, , FRANCOISE 10/01/24, surprise PC Melanie, Sameer Joel (4) : Status: Acute Qualifiers: Weeks of gestation: 30 weeks Qualified Code(s): Z3A.30 - 30 weeks gestation of Comment: NIPT low risk, carrier and afp negative. Orders: Orders POC Urinalysis 2 Dip (Clinic) Today Plan Details Additional Comments: ACOG trimester education reviewed and updated. see problem list details for updated plan management information and see below for orders placed at this visit. GA appropriate handout given. Clinical Quality Measures Falls Risk Screening/Assistive Devices Have you fallen in the past year?: No 07/29/24 1414 <Electronically signed by Zo wan CNM> Date _ Zo Cherry Signature: Date (if applicable) CC: ~ [facility] Work Phone: 1(164) 732-962505-13-[address] [facility] [address] [place] [address], [address] [place] [address] OFFICE VISIT Date of Service: 07/13/24 MR#: [id number] Acct: [id number] Name: AKOSUA NUNEZ Rep #: [id number] : 1995 Provider: CIARRA Weir Age/Sex: 29/F Location: [facility] Status: Signed Intake Vital Signs 05/17/24 09:30 06/14/24 11:41 07/13/24 08:36 Height 5 ft 5 in 5 ft 5 in 5 ft 5 in Weight: 155 lb 6 oz BMI 25.8 BP 112/64 Intake Visit Reasons: 28 WK OB/GLUCOSE Chief Complaint: 28 Week OB/Glucose Web Worker Required: No Is patient in pain?: No Allergies No Known Allergies Allergy (Unverified 07/13/24 08:38) Medications ?Medication ?Instructions ?Recorded ?Confirmed ?Type PNV 153-FA 400 mcg-om3 35 mg-dha tab PO 02/06/2407/13 History 25 mg-epa 5 mg-fish oil chew tablet breast pump #1 ea 05/24/24 07/13/24 Rx Last Menstrual Period: 12/26/23 Zika: Zika virus screening: Negative : Yes PFSH PFSH Surgical History H/O cystoscopy H/O breast augmentation Family History Grandfather Cancer Maternal- unsure what kind Heart disease Pacemaker- Maternal Mother Mitral valve disease Grandmother Mitral valve disease Maternal Social History adopted: No household members: spouse and children number of children: 2 current occupational status: employed 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 occupational exposures/hazards: No pets and animals: Yes pets and animals: dog(s) history of recent travel: No sexually active: Yes Smoking Status: Never smoker alcohol intake: never substance use type: does not use well-balanced diet: daily or most days caffeine: Yes Type: coffee Number of servings: 1 eating out: rarely or never during the past year weight has: remained stable what type of physical activity do you participate in: none kvng/church: [employer] seatbelt use: always do you feel safe at home: Yes 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 Date Name GA/Weeks Outcome Route Bth Weight Infant Gen Labor Lgth Anesthesia Del Locatn Provider FOB 01/06/18 Melanie 40 live - full term 6#13oz Female none [facility] Dr. Edwina Maldonado 11/29/20 Sameer 38 live - full term 6#10oz Male epidural [facility] in [place] Dr. Devante Maldonado HPI 28 WK OB/GLUCOSE Details: AKOSUA NUNEZ is a 29 year old who presents for routine OB visit. OB Visit FRANCOISE Calculator Estimated Delivery Date Method Current WG Current Estimate 10/01/24 LMP (Certain) 28w 4d Expected Delivery Route/Plan Labor Preferences- CB/BF classes: no labor support person: Joel labor intervention preferences: [] pain management options preferred: limited cut cord/dad catch: yes : yes PP control planned: discussed discussed possible routes of delivery and associated risks: [] special requests: [] Specific Issue/Plans Covid status: [] Flu vaccine: [] Tdap vaccine: given Rhogam: NA LARC form signed: Yes Problem list reviewed and updated with the most current plan of care details and appropriate ordersplaced. Relevant counseling for the gestational age provided. Continue routine care and follow up unless otherwise noted in visit notes/problem list details Initial Weight: 131 lb Date -?-?-?-?-?-?-?-?-?-?-?-?- EGA Weight BP Urine Prot -?-?-?-?-?-?-?-?-?-?-?-?- Glucose FHR FuHt Pres Dilation -?-?-?-?-?-?-?-?-?-?-?-?- Effaced St Visit Note 02/19/24 -?-?-?-?-?-?-?-?-?-?-?-?- 7w 6d 131 lb (+0 oz) 83/63 -?-?-?-?-?-?-?-?-?-?-?-?- 161 -?-?-?-?-?-?-?-?-?-?-?-?- KW- CRL cons wit h dates. small AMMADOU noted. desires NIPT. 03/19/24 -?-?-?-?-?-?-?-?-?-?-?-?- 12w 0d 135 lb (+4 lb) 121/75 Negative -?-?-?-?-?-?-?-?-?-?-?-?- Negative 163 -?-?-?-?-?-?-?-?-?-?-?-?- JV- CRL still co nsistent with LMP. plans to do NIPT today. does not want to know gender. 04/14/24 -?-?-?-?-?-?-?-?-?-?-?-?- 15w 5d 136 lb 8 oz (+5 lb 8 oz) 115/76 Negative -?-?-?-?-?-?-?-?-?-?-?--?- Negative 145 -?-?-?-?-?-?-?-?-?-?-?-?- SM- no vb crampi ng 05/17/24 -?-?-?-?-?-?-?-?-?-?-?-?- 20w 3d 140 lb 2 oz (+9 lb 2 oz) 112/74 Negative -?-?-?-?-?-?-?-?-?-?-?-?- Negative 150 -?-?-?-?-?-?-?-?-?-?-?-?- KW- no vb/crampi ng. good fm. anatomy US reviewed. 06/14/24 -?-?-?-?-?-?-?-?-?-?-?-?- 24w 3d 147 lb 2 oz (+16 lb 2 oz) 113/74 -?-?-?-?-?-?-?-?-?-?-?-?- 145 24 -?-?-?-?-?-?-?-?-?-?-?-?- JV- no lof, vagi nal bleeding, or dec fm. does has some vision changes, especially at night. Recommend eye exam . tdap and gct next visit. 07/13/24 -?-?-?-?-?-?-?-?-?-?-?-?- 28w 4d 155 lb 6 oz (+24 lb 6 oz) 112/64 Negative -?-?-?-?-?-?-?-?-?-?-?-?- Negative 166 28 -?-?--?-?-?-?-?-?-?-?-?-?- MH-No VB, lof. G ood Fm. Larc, tdap. 28 wk labs pending ACOG First Trimester First Trimester: Desire for , Alcohol, Tobacco Cessation, Illicit/Recreational Drug/Substance Use, Intimate Partner Violence, Barriers to care, Anticipated Course of Care, Use of Any medications, Sexual activity, Exercise, Dental Care, Sauna/Hot tub use, Seat Belt use, Childbirth c lasses/Hospital facilities, , Travel, Indications for Ultrasound and Screening for Aneuploidy; Discussed Unstable Housing, Discussed Communication Barriers, Discussed Environmental/Work Hazards and Discussed Toxoplasmosis Precations Second Trimester Second Trimester: Signs and Symptoms of Labor, Selecting a care provider, Reproductive Life Planning & Contreception, Care Planning and Depression/Anxiety; Discussed Tobacco Cessation and Discussed Intimate Partner Violence Third Trimester Third Trimester: Pain Management Plans, Labor support person(s), Immediate Larc, Circumcision preference Yes Yes, Feeding Yes , Education and Family Medical Leave or Disability Forms ROS Const Reports system reviewed and no additional complaints, except as documented GI Denies abdominal pain, Denies nausea and Denies vomiting Exam Const General: cooperative Nutritional Appearance: well nourished GI Palpation: soft, nontender and other (gravid) Results POC Urinalysis 2 Dip (Clinic) Office Urine Glucose Negative Last Edit by Emilee Montemayor on 07/13/24 08 :49 Office Urine Protein Negative Last Edit by Emilee Montemayor on 07/13/24 08 :49 Coding Level of Care Code OB Routine Diagnoses Supervision of high risk in third trimester O09.93 Trimester: third trimester 28 weeks gestation of Z3A.28 Weeks of gestation: 28 weeks History of recurrent UTI (urinary tract infection) Z87.440 History of anxiety Z86.59 Assessment and Plan Assessment and Plan (1) Supervision of high-risk : Status: Acute Qualifiers: Trimester: third trimester Qualified Code(s): O09.93 - Supervision of high risk , unspecified, third trimester Comment: PRR, , FRANCOISE 10/01/24, surprise PC Melanie, Sameer Joel (2) : Status: Acute Qualifiers: Weeks of gestation: 28 weeks Qualified Code(s): Z3A.28 - 28 weeks gestation of Comment: NIPT low risk, carrier and afp negative. (3) History of recurrent UTI (urinary tract infection): Status: Acute Comment: last UTI was December (4) History of anxiety: Status: Acute Comment: stopped lexapro in November,. Stable Orders: Orders POC Urinalysis 2 Dip (Clinic) Today Plan problem list reviewed and updated for most current plan of care and appropriate orders placed. Relevant counseling for the gestational age appropriate provided and ACOG education checklist updated. Continue routine care and follow up. 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 APPRENTICE-C> Date _ Anila Weir METALSMITH APPRENTICE METALSMITH APPRENTICE-C Cosigner Signature: Date (if applicable) CC: ~ [facility]04-14-2025 Evaluation note* Diagnosis Onset Date Resolution Status Admit Date History of anxiety acute June 14, 2024 11:38am History of recurrent UTI (urinary tract infection) acute June 14, 2024 11:38am acute June 14 11:38am Supervision of high-risk acute June 14, 2024 11:38am History of anxiety acute July 132024 8:31am History of recurrent UTI (urinary tract infection) acute July 132024 8:31am acute July 13, 2024 8:31am Supervision of high-risk acute July 13, 2024 8 :31am History of anxiety acute July 292024 2:00pm History of recurrent UTI (urinary tract infection) acute July 292024 2:00pm acute July 29, 2024 2:00pm Supervision of high-risk acute July 29, 2024 2 :00pm History of anxiety acute August 012024 10:34am History of recurrent UTI (urinary tract infection) acute August 012024 10:34am acute August 12 10:34am Supervision of high-risk acute August 12, 2024 10:34am History of anxiety acute August 022024 9:24am History of recurrent UTI (urinary tract infection) acute August 022024 9:24am acute August 23 9:24am Supervision of high-risk acute August 23, 2024 9:24am History of anxiety acute August 312024 10:16am History of recurrent UTI (urinary tract infection) acute August 312024 10:16am acute September 09 10:16am Supervision of high-risk acute September 09, 2024 10:16am GBS (group B streptococcus) UTI complicating acute August 10:40am History of anxiety acute August 312024 10:40am History of recurrent UTI (urinary tract infection) acute August 312024 10:40am acute September 16 10:40am Supervision of high-risk acute September 16, 2024 10:40am Uterine size date discrepancy acute September 16, 2024 10:40am [facility] Work Phone: 1(203) 958-872004-14-2025 Evaluation note* Diagnosis Onset Date Resolution Status Admit Date History of anxiety acute June 14, 2024 11:38am History of recurrent UTI (urinary tract infection) acute June 14, 2024 11:38am acute June 14 11:38am Supervision of high-risk acute June 14, 2024 11:38am History of anxiety acute July 132024 8:31am History of recurrent UTI (urinary tract infection) acute July 132024 8:31am acute July 13, 2024 8:31am Supervision of high-risk acute July 13, 2024 8 :31am History of anxiety acute July 292024 2:00pm History of recurrent UTI (urinary tract infection) acute July 292024 2:00pm acute July 29, 2024 2:00pm Supervision of high-risk acute July 29, 2024 2 :00pm History of anxiety acute August 012024 10:34am History of recurrent UTI (urinary tract infection) acute August 012024 10:34am acute August 12 10:34am Supervision of high-risk acute August 12, 2024 10:34am History of anxiety acute August 022024 9:24am History of recurrent UTI (urinary tract infection) acute August 022024 9:24am acute August 23 9:24am Supervision of high-risk acute August 23, 2024 9:24am History of anxiety acute August 312024 10:16am History of recurrent UTI (urinary tract infection) acute August 312024 10:16am acute September 09 10:16am Supervision of high-risk acute September 09, 2024 10:16am GBS (group B streptococcus) UTI complicating acute August 10:40am History of anxiety acute August 312024 10:40am History of recurrent UTI (urinary tract infection) acute August 312024 10:40am acute September 16 10:40am Supervision of high-risk acute September 16, 2024 10:40am Uterine size date discrepancy acute September 16, 2024 10:40am GBS (group B streptococcus) UTI complicating acute August 3:28pm History of anxiety acute September 012024 3:28pm History of recurrent UTI (urinary tract infection) acute September 012024 3:28pm acute September 20 3:28pm Supervision of high-risk acute September 20, 2024 3:28pm Uterine size date discrepancy acute September 20, 2024 3:28pm Vaginal discharge during acute September 20, 2024 3:28pm [facility] Work Phone: 1(418) 439-924804-14-2025 Evaluation note* Diagnosis Onset Date Resolution Status Admit Date History of anxiety acute June 14, 2024 11:38am History of recurrent UTI (urinary tract infection) acute June 14, 2024 11:38am acute June 14 11:38am Supervision of high-risk acute June 14, 2024 11:38am History of anxiety acute July 132024 8:31am History of recurrent UTI (urinary tract infection) acute July 132024 8:31am acute July 13, 2024 8:31am Supervision of high-risk acute July 13, 2024 8 :31am History of anxiety acute July 292024 2:00pm History of recurrent UTI (urinary tract infection) acute July 292024 2:00pm acute July 29, 2024 2:00pm Supervision of high-risk acute July 29, 2024 2 :00pm History of anxiety acute August 012024 10:34am History of recurrent UTI (urinary tract infection) acute August 012024 10:34am acute August 12 10:34am Supervision of high-risk acute August 12, 2024 10:34am History of anxiety acute August 022024 9:24am History of recurrent UTI (urinary tract infection) acute August 022024 9:24am acute August 23 9:24am Supervision of high-risk acute August 23, 2024 9:24am History of anxiety acute August 312024 10:16am History of recurrent UTI (urinary tract infection) acute August 312024 10:16am acute September 09 10:16am Supervision of high-risk acute September 09, 2024 10:16am GBS (group B streptococcus) UTI complicating acute August 10:40am History of anxiety acute August 312024 10:40am History of recurrent UTI (urinary tract infection) acute August 312024 10:40am acute September 16 10:40am Supervision of high-risk acute September 16, 2024 10:40am Uterine size date discrepancy acute September 16, 2024 10:40am GBS (group B streptococcus) UTI complicating acute August 3:28pm History of anxiety acute September 012024 3:28pm History of recurrent UTI (urinary tract infection) acute September 012024 3:28pm acute September 20 3:28pm Supervision of high-risk acute September 20, 2024 3:28pm Uterine size date discrepancy acute September 20, 2024 3:28pm Vaginal discharge during acute September 20, 2024 3:28pm GBS (group B streptococcus) UTI complicating acute August 10:39am History of anxiety acute September 012024 10:39am History of recurrent UTI (urinary tract infection) acute September 012024 10:39am acute September 23 10:39am Supervision of high-risk acute September 23, 2024 10:39am Uterine size date discrepancy acute September 23, 2024 10:39am Vaginal discharge during acute September 23, 2024 10:39am [facility] Work Phone: 1(433) 426-258503-17-2025 Evaluation note* Diagnosis Onset Date Resolution Status Admit Date History of anxiety acute May 17, 2024 9:26am History of recurrent UTI (urinary tract infection) acute May 17, 2024 9:26am acute May 17 9:26am Supervision of high-risk acute May 17, 2024 9:26am History of anxiety acute June 14, 2024 11:38am History of recurrent UTI (urinary tract infection) acute June 14, 2024 11:38am acute June 14 11:38am Supervision of high-risk acute June 14, 2024 11:38am History of anxiety acute July 132024 8:31am History of recurrent UTI (urinary tract infection) acute July 132024 8:31am acute July 13, 2024 8:31am Supervision of high-risk acute July 13, 2024 8 :31am History of anxiety acute July 292024 2:00pm History of recurrent UTI (urinary tract infection) acute July 292024 2:00pm acute July 29, 2024 2:00pm Supervision of high-risk acute July 29, 2024 2 :00pm History of anxiety acute August 012024 10:34am History of recurrent UTI (urinary tract infection) acute August 012024 10:34am acute August 12 10:34am Supervision of high-risk acute August 12, 2024 10:34am History of anxiety acute August 022024 9:24am History of recurrent UTI (urinary tract infection) acute August 022024 9:24am acute August 23 9:24am Supervision of high-risk acute August 23, 2024 9:24am [facility] Work Phone: 1([phone]) 892-644303-17-2025 Evaluation note* Diagnosis Onset Date Resolution Status Admit Date History of anxiety acute May 17, 2024 9:26am History of recurrent UTI (urinary tract infection) acute May 17, 2024 9:26am acute May 17 9:26am Supervision of high-risk acute May 17, 2024 9:26am History of anxiety acute June 14, 2024 11:38am History of recurrent UTI (urinary tract infection) acute June 14, 2024 11:38am acute June 14 11:38am Supervision of high-risk acute June 14, 2024 11:38am History of anxiety acute July 132024 8:31am History of recurrent UTI (urinary tract infection) acute July 132024 8:31am acute July 13, 2024 8:31am Supervision of high-risk acute July 13, 2024 8 :31am History of anxiety acute July 292024 2:00pm History of recurrent UTI (urinary tract infection) acute July 292024 2:00pm acute July 29, 2024 2:00pm Supervision of high-risk acute July 29, 2024 2 :00pm History of anxiety acute August 012024 10:34am History of recurrent UTI (urinary tract infection) acute August 012024 10:34am acute August 12 10:34am Supervision of high-risk acute August 12, 2024 10:34am History of anxiety acute August 022024 9:24am History of recurrent UTI (urinary tract infection) acute August 022024 9:24am acute August 23 9:24am Supervision of high-risk acute August 23, 2024 9:24am History of anxiety acute August 312024 10:16am History of recurrent UTI (urinary tract infection) acute August 312024 10:16am acute September 09 10:16am Supervision of high-risk acute September 09, 2024 10:16am [facility] Work Phone: 1(370) 315-839002-12-2025 Evaluation note* Diagnosis Onset Date Resolution Status Admit Date History of anxiety acute 2024 9:28am History of recurrent UTI (urinary tract infection) acute 2024 9:28am acute April 14, 2024 9:28am Supervision of high-risk acute April 14 9:28am History of anxiety acute May 17, 2024 9:26am History of recurrent UTI (urinary tract infection) acute May 17, 2024 9:26am acute May 17 9:26am Supervision of high-risk acute May 17, 2024 9:26am History of anxiety acute June 14, 2024 11:38am History of recurrent UTI (urinary tract infection) acute June 14, 2024 11:38am acute June 14 11:38am Supervision of high-risk acute June 14, 2024 11:38am History of anxiety acute July 132024 8:31am History of recurrent UTI (urinary tract infection) acute July 132024 8:31am acute July 13, 2024 8:31am Supervision of high-risk acute July 13, 2024 8 :31am [facility] Work Phone: 1(169) 658-277902-12-2025 Evaluation note* Diagnosis Onset Date Resolution Status Admit Date History of anxiety acute 2024 9:28am History of recurrent UTI (urinary tract infection) acute 2024 9:28am acute April 14, 2024 9:28am Supervision of high-risk acute April 14 025 9:28am History of anxiety acute May 17, 2024 9:26am History of recurrent UTI (urinary tract infection) acute May 17, 2024 9:26am acute May 17 9:26am Supervision of high-risk acute May 17, 2024 9:26am History of anxiety acute June 14, 2024 11:38am History of recurrent UTI (urinary tract infection) acute June 14, 2024 11:38am acute June 14 11:38am Supervision of high-risk acute June 14, 2024 11:38am History of anxiety acute July 132024 8:31am History of recurrent UTI (urinary tract infection) acute July 132024 8:31am acute July 13, 2024 8:31am Supervision of high-risk acute July 13, 2024 8 :31am History of anxiety acute July 292024 2:00pm History of recurrent UTI (urinary tract infection) acute July 292024 2:00pm acute July 29, 2024 2:00pm Supervision of high-risk acute July 29, 2024 2 :00pm [facility] Work Phone: 1(856) 612-674002-12-2025 Evaluation note* Diagnosis Onset Date Resolution Status Admit Date History of anxiety acute 2024 9:28am History of recurrent UTI (urinary tract infection) acute 2024 9:28am acute April 14, 2024 9:28am Supervision of high-risk acute April 14 025 9:28am History of anxiety acute May 17, 2024 9:26am History of recurrent UTI (urinary tract infection) acute May 17, 2024 9:26am acute May 17 9:26am Supervision of high-risk acute May 17, 2024 9:26am History of anxiety acute June 14, 2024 11:38am History of recurrent UTI (urinary tract infection) acute June 14, 2024 11:38am acute June 14 11:38am Supervision of high-risk acute June 14, 2024 11:38am History of anxiety acute July 132024 8:31am History of recurrent UTI (urinary tract infection) acute July 132024 8:31am acute July 13, 2024 8:31am Supervision of high-risk acute July 13, 2024 8 :31am History of anxiety acute July 292024 2:00pm History of recurrent UTI (urinary tract infection) acute July 292024 2:00pm acute July 29, 2024 2:00pm Supervision of high-risk acute July 29, 2024 2 :00pm History of anxiety acute August 012024 10:34am History of recurrent UTI (urinary tract infection) acute August 012024 10:34am acute August 12 10:34am Supervision of high-risk acute August 12, 2024 10:34am [facility] Work Phone: 1([phone]) 543-984401-17-2025 Evaluation note* Diagnosis Onset Date Resolution Status Admit Date History of anxiety acute 2024 11:28am History of recurrent UTI (urinary tract infection) acute 2024 11:28am acute March 19, 2024 11:28am Supervision of high-risk acute March 19 11:28am Varicella vaccination status unknown resolved March 19 11:28am History of anxiety acute 2024 9:28am History of recurrent UTI (urinary tract infection) acute 2024 9:28am acute April 14, 2024 9:28am Supervision of high-risk acute April 14 9:28am History of anxiety acute May 17, 2024 9:26am History of recurrent UTI (urinary tract infection) acute May 17, 2024 9:26am acute May 17 9:26am Supervision of high-risk acute May 17, 2024 9:26am History of anxiety acute June 14, 2024 11:38am History of recurrent UTI (urinary tract infection) acute June 14, 2024 11:38am acute June 14 11:38am Supervision of high-risk acute June 14, 2024 11:38am History of anxiety acute July 132024 8:31am History of recurrent UTI (urinary tract infection) acute July 132024 8:31am acute July 13, 2024 8:31am Supervision of high-risk acute July 13, 2024 8 :31am [facility] Work Phone: 1(661) 418-361101-01-2025 History of Present illness Narrative* 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 She states that for 2 days she has felt nauseated, but has not thrown up. She said that she had bodyache, chills, and a headache. Patient woke up this morning, and her lymph nodes feel swollen and her throat is sore. 29-year-old female presents today with concerns of nausea, intermittent body aches, chills and headache. Patient states she has had symptoms for proximally 2 days. 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 Patient's states that she is not significantly congested or coughing. She is having a sore throat. She does have a mild productive cough. Patient reports that nausea is worse when lying down. History Allergies Allergen Reactions Amoxicillin-Pot Clavulanate Rash Current Outpatient Medications Medication Sig Escitalopram (Lexapro) 10 MG tablet Take 1 tablet by mouth daily. Vit-Fe Fumarate-FA ( VITAMINS PO) Take 1 tablet by mouth Twice daily. Family History Problem Relation Age of Onset Asthma Mother Heart murmur Mother Skin Cancer Mother moles removed that were pre-cancerous Hypertension Father Addiction Father Dementia Maternal Grandmother Heart murmur Maternal Grandmother Skin Cancer Maternal Grandfather Addiction Paternal Grandfather Past Medical History: Diagnosis Date Anxiety Past Surgical History: Procedure Laterality Date AUGMENTATION BREAST Bilateral 04/02/2022 Social History Socioeconomic History Marital status: Spouse name: Not on file Number of children: Not on file Years of education: Not on file Highest education level: Not on file Occupational History Not on file Tobacco Use Smoking status: Never Smokeless tobacco: Never Vaping Use Vaping status: Never Used Substance and Sexual Activity Alcohol use: Never Drug use: Never Sexual activity: Yes Partners: Male control/protection: None Other Topics Concern Service Not Asked Blood Transfusions Not Asked Caffeine Concern Not Asked Occupational Exposure Not Asked Hobby Hazards Not Asked Sleep Concern Not Asked Stress Concern Not Asked Weight Concern Not Asked Special Diet Not Asked Back Care Not Asked Exercise Not Asked Bike Helmet Not Asked Seat Belt Not Asked Domestic Violence Not Asked Social History Narrative Not on file Social Determinants of Health Financial Resource Strain: Not on file Food Insecurity: Not on file Transportation Needs: Not on file Physical Activity: Not on file Stress: Not on file Social Connections: Not on file Intimate Partner Violence: Not on file Housing Stability: Not on file ROS Review of Systems Constitutional: Positive for fatigue. HENT: Positive for congestion, postnasal drip and sore throat. Respiratory: Positive for cough. Cardiovascular: Negative. Gastrointestinal: Positive for nausea and vomiting. Negative for abdominal pain. 8 systems reviewed with patient, negative unless specifically mentioned in history of present illness PHYSICAL EXAM Visit Vitals BP 107/58 (BP Location: Left arm, BP Position: Sitting) Pulse 95 Temp 98.8 F (37.1 C) (Temporal) Resp 18 Ht 1.651 m (5' 5) Wt 61 kg (134 lb 8 oz) LMP 03/11/2023 SpO2 99% BMI 22.38 kg/m Physical Exam Vitals reviewed. Constitutional: Appearance: She is well-developed and normal weight. HENT: Head: Normocephalic. Right Ear: A middle ear effusion is present. Left Ear: A middle ear effusion is present. Nose: Congestion present. Mouth/Throat: Pharynx: Posterior oropharyngeal erythema and postnasal drip present. Tonsils: No tonsillar exudate. 0 on the right. 0 on the left. Eyes: Conjunctiva/sclera: Conjunctivae normal. Pupils: Pupils are equal, round, and reactive to light. Cardiovascular: Rate and Rhythm: Normal rate and regular rhythm. Musculoskeletal: Cervical back: Normal range of motion and neck supple. Skin: Capillary Refill: Capillary refill takes less than 2 seconds. Findings: No rash. Neurological: Mental Status: She is alert. RESULTS Recent Results (from the past 2 hour(s)) POCT INFLUENZA, A B Collection Time: 03/03/24 12:27 PM Result Value Ref Range POCT Influenza A Negative Negative, Not Tested, Invalid, Not Detected POCT Influenza B Negative Negative, Not Tested, Invalid, Not Detected ASSESSMENT/PLAN 1. Fever, unspecified fever cause 2. Pharyngitis, unspecified etiology 3. Nausea Orders Placed This Encounter POCT INFLUENZA, A B POCT RAPID STREP A The test completed in the clinic is negative for strep throat. Will send off for confirmatory culture. Recommended that patient takes Unisom and B 6 for nausea. She is otherwise to follow up with OBGYN. You may take motrin/tylenol every 6-8 hours as needed/if tolerated for fever/body aches/throat discomfort. Take with food to help minimize stomach upset. OTC sore throat remedies for symptom improv ement. Practice good hygiene to prevent the spread of this infection to others. Return if you are not improving in 4-5 days or sooner if significant increase in pain or if inability to tolerate fluids or pain in the jaw with opening up your mouth or asymmetric swelling of the throat or if you have any other concerns. All questions answered. Pt and parent agrees with plan. If symptoms worsen patient was advised to follow up in our office, primary care provider or the Emergency Dept. Benefits, Risks, Contraindications, and Complications of recommended treatments were explained. The patient understands and agrees to proceed with plan. KAIDEN Payton 03/03/[address] [facility]01-01-2025 Instructions* Attachments The following attachments cannot be sent through Care Everywhere. * : Nutrition (Malagasy) * : Morning Sickness (Malagasy) documented in this [facility]12-22-2024 Evaluation + Plan note * Assessment & Plan Note - Anil Oneal DO - 02/22/2024 11:07 PM EST Associated Problem(s): 8 weeks gestation of ([facility] Continue close follow up with obgyn as previously scheduled. [facility] Work Phone: [phone]) 767-378212-22-2024 Evaluation + Plan note* Assessment & Plan Note - Anil Oneal DO - 02/22/2024 11:07 PM ESTAssociated Problem(s): Anxiety Managed on Lexapro in the past. She weaned the SSRI and is doing well at this time. Return precautions reviewed. [facility] Work Phone: [phone] 389-874912-22-2024 Miscellaneous Notes* Assessment & Plan Note - Anil Oneal DO - 02/22/2024 11:07 PM ESTAssociated Problem(s): 8 weeks gestation of ([facility]) Continue close follow up with obgyn as previously scheduled. * Assessment & Plan Note - Anil Oneal DO - 02/22/2024 11:07 PM EST Associated Problem(s): Anxiety Managed on Lexapro in the past. She weaned the SSRI and is doing well at this time. Return precautions reviewed. * Assessment & Plan Note - Anil Oneal DO - 02/22/2024 11:06 PM EST Associated Problem(s): Palpitations Chronic. We reviewed possible etiologies and usual workup. She will be doing labs with ob at next appt. We will proceed with echo for further evaluation. May also consider holter pending clinical course. Will follow up with result when available. Return precautions reviewed. * Assessment & Plan Note - Anil Oneal DO - 02/22/2024 11:05 PM EST Associated Problem(s): Recurrent UTI Asymptomatic at this time. Now following with urology prn. * Assessment & Plan Note - Anil Oneal DO - 02/22/2024 11:05 PM EST Associated Problem(s): Skin lesion Dermatology evaluation pending. documented in this [facility] Work Phone: 1(135) 240-945012-22-2024 Evaluation + Plan note* Assessment & Plan Note - Anil Oneal DO - 02/22/2024 11:06 PM ESTAssociated Problem(s): Palpitations Chronic. We reviewed possible etiologies and usual workup. She will be doing labs with ob at next appt. We will proceed with echo for further evaluation. May also consider holter pending clinical course. Will follow up with result when available. Return precautions reviewed. [facility] Work Phone: 1(225) 585-869612-22-2024 Evaluation + Plan note* Assessment & Plan Note - Anil Oneal DO - 02/22/2024 11:05 PM ESTAssociated Problem(s): Recurrent UTI Asymptomatic at this time. Now following with urology prn. [facility] Work Phone: [phone] 644-870812-22-2024 Evaluation + Plan note* Assessment & Plan Note - Anil Oneal DO - 02/22/2024 11:05 PM ESTAssociated Problem(s): Skin lesion Dermatology evaluation pending. [facility] Work Phone: [phone] 195-509712-20-2024 History of Present illness Narrative* Anil Miranda Stacy, - 02/20/2024 8:20 AM EST Subjective Patient ID: Akosua Nunez is a 29 y.o. female who presents for establish care. Previous provider Corinna Palma. 8 weeks . HPI - had first ob appt yesterday ([facility]), states 8w0d gestation today, notes mild nausea and fatigue but otherwise feeling well, she is supplementing with gummies, had 6yo daughter and 3yo son, francoise 10/01/2024 Recurrent UTI - follows with [facility], states that she is asymptomatic and has not had UTI since she had cysto, asymptomatic today Skin lesion - scheduled to see Dr. Wahl 04/12/2023 for evaluation, notes red lesion upper abdomen with surrounding hypopigmented halo, reports fhx melanoma in multiple family members, has noticed decrease in size of the lesion since she initially noticed it Anxiety - was managed on Lexapro for about 3yrs, had hard time getting refilled by previous PCP andalso wanted to be off th SSRI prior to current so weaned on her own, wean went well with no withdrawal symptoms, states that she is feeling great at this time Palpitations - chronic and present for as long as she can remember, notes occasional very brief flutter that happens at least daily, episodes are random, feels a flutter, sometimes has to quickly catch her breath, then back to baseline, notes fhx MVP in mother and grandmother and is interested in echo Cervical Cancer Screening: pap updated yesterday with ob, no hx abnormal pap Breast Cancer Screening: no fhx, follows with obgyn Osteoporosis Screening: plan to start at age 65 Colon Cancer Screening: fhx colon ca in father, asymptomatic, plan to start at age 40 Tobacco: never Alcohol: denies Recreational Drugs: denies Immunizations: influenza today, states otherwise utd Review of Systems Constitutional: Positive for fatigue. Negative for chills and fever. HENT: Negative for congestion and rhinorrhea. Eyes: Negative for redness. Respiratory: Negative for cough and shortness of breath. Cardiovascular: Positive for palpitations. Negative for chest pain and leg swelling. Gastrointestinal: Positive for nausea. Negative for abdominal pain, blood in stool, constipation, diarrhea and vomiting. Genitourinary: Negative for dysuria and flank pain. Musculoskeletal: Negative for arthralgias and myalgias. Skin: Negative for rash. Neurological: Negative for dizziness, numbness and headaches. Psychiatric/Behavioral: Negative for dysphoric mood and sleep disturbance. The patient is not nervous/anxious. Objective BP 90/62 Pulse 76 Ht 1.651 m (5' 5) Wt 61.4 kg (135 lb 6.4 oz) BMI 22.53 kg/m Physical Exam Vitals reviewed. Constitutional: General: She is not in acute distress. Appearance: Normal appearance. HENT: Head: Normocephalic and atraumatic. Eyes: General: No scleral icterus. Conjunctiva/sclera: Conjunctivae normal. Cardiovascular: Rate and Rhythm: Normal rate and regular rhythm. Heart sounds: No murmur heard. Pulmonary: Effort: Pulmonary effort is normal. No respiratory distress. Breath sounds: Normal breath sounds. Abdominal: General: Bowel sounds are normal. There is no distension. Palpations: Abdomen is soft. Tenderness: There is no abdominal tenderness. There is no guarding or rebound. Musculoskeletal: General: No swelling or deformity. Cervical back: Normal range of motion and neck supple. Skin: General: Skin is warm and dry. Findings: No rash. Neurological: General: No focal deficit present. Mental Status: She is alert. Psychiatric: Mood and Affect: Mood normal. Behavior: Behavior normal. Assessment/Plan Problem List Items Addressed This Visit ICD-10-CM Skin lesion L98.9 Dermatology evaluation pending. Recurrent UTI N39.0 Asymptomatic at this time. Now following with urology prn. Palpitations - Primary R00.2 Chronic. We reviewed possible etiologies and usual workup. She will be doing labs with ob at next appt. We will proceed with echo for further evaluation. May also consider holter pending clinical course. Will follow up with result when available. Return precautions reviewed. Relevant Orders Transthoracic Echo (TTE) Complete Anxiety F41.9 Managed on Lexapro in the past. She weaned the SSRI and is doing well at this time. Return precautions reviewed. 8 weeks gestation of ([facility]) Z3A.08 Continue close follow up with obgyn as previously scheduled. Other Visit Diagnoses Codes Encounter for immunization Z23 Relevant Orders Flu vaccine, trivalent, preservative free, no egg protein, age 18y+ (Flublok) (Completed) Follow up in 1yr for recheck, sooner if needed. * Odalys See MA - 02/20/2024 8:20 AM EST NO PRECERT NEEDED. ORDER FAXED TO [facility]. [facility] Work Phone: 1([phone]) 508-297907-09-2024 History of Present illness Narrative* Keara Hilario LPN - 09/09/2023 4:10 PM EDT She is here today to have a mole on her stomach checked that has changed. She states the mole has been there forever but in the past 4 months a white halo ring around it has formed. It itches on and off and she has caused it to bleed scratching it. She admits to laying out in the sun without using sunscreen. Her mother has had multiple moles removed that were pre-cancerous. Her paternal GF had melanoma. * Corinna Jackson, URSULA-LINEMAN A CLASS - 09/09/2023 4:10 PM EDT xHISTORY OF PRESENT ILLNESS Chief Complaint Patient presents with Mole abdomen Akosua Nunez female 1995 presents today with Mole (abdomen) She is here today to have a mole on her stomach checked that has changed. She states the mole has been there forever but in the past 4 months a white halo ring around it has formed. It itches on and off and she has caused it to bleed scratching it. She admits to laying out in the sun without using sunscreen. Her mother has had multiple moles removed that were pre-cancerous. Her paternal GF had melanoma. ROS Review of Systems Skin: Positive for color change (mole on abd). VITALS: Vitals: 09/09/23 1616 BP: 110/68 Pulse: 73 Temp: 98 degrees F (36.7 degrees C) TempSrc: Temporal SpO2: 99% Weight: 57.9 kg (127 lb 9.6 oz) Height: 1.664 m (5' 5.5) Wt Readings from Last 3 Encounters: 09/09/23 57.9 kg (127 lb 9.6 oz) 04/04/23 56.7 kg (125 lb) 03/28/23 56.7 kg (125 lb) PHYSICAL EXAM Physical Exam Vitals and nursing note reviewed. Constitutional: Appearance: Normal appearance. She is well-developed, well-groomed and normal weight. Cardiovascular: Rate and Rhythm: Normal rate. Pulmonary: Effort: Pulmonary effort is normal. Skin: General: Skin is warm and dry. Findings: Lesion present. Comments: Midline upper abd has small mole with loss of pigment (about 1 cm around mole. Neurological: Mental Status: She is alert. Psychiatric: Behavior: Behavior is cooperative. ASSESSMENT/PLAN Akosua was seen today for mole. Diagnoses and all orders for this visit: Change in mole - AMB REFERRAL TO DERMATOLOGY Follow up as needed. [facility] History of Present illness Narrative* Saravanan Clifton - 04/04/2023 1:30 PM EST Nurse Note: Nursing Assessment: Physical Exam Patient comes to office for cystoscopy Patient denies pain or discomfort. Patient states Patient has no further questions at this time * Saravanan Clifton - 04/04/2023 1:30 PM EST Nurse Note: Review of Systems Constitutional: Negative. HENT: Negative. Eyes: Negative. Respiratory: Negative. Cardiovascular: Negative. Gastrointestinal: Negative. Endocrine: Negative. Genitourinary: Negative. Musculoskeletal: Negative. Skin: Negative. Allergic/Immunologic: Negative. Neurological: Negative. Hematological: Negative. Psychiatric/Behavioral: Negative. Nursing Assessment: Physical Exam Patient comes to office today for cystoscopy Patient denies pain or discomfort Lab Results Component Value Date APPEARANCE clear 04/04/2023 COLOR yellow 04/04/2023 SPECIFICGRAV 1.010 04/04/2023 BLOOD neg 04/04/2023 PH 6.0 04/04/2023 PROTEIN neg 04/04/2023 UROBILINOGEN 0.2 04/04/2023 NITRITE neg 04/04/2023 LEUKOCYTE neg 04/04/2023 LEUKOCESTUR NEGATIVE 12/07/2021 * Belkys Colorado MD - 04/04/2023 1:30 PM ESTAssociated Order(s): CYSTOSCOPY Post-Procedure Diagnose(s): Recurrent UTI; Hematuria, unspecified type CYSTOSCOPY Date/Time: 04/04/2023 1:30 PM Performed by: Belkys Colorado MD Authorized by: Belkys Colorado MD The attending physician was present for the entire procedure. Pre-Procedure: Indications: recurrent UTIs Detailed information of all possible complications and side effects were discussed with the patient, these include but not only; UTI, sepsis, hematuria, incontinence, urethral injury and cardiovascular complications. Informed consent was obtained. Does this procedure require a [place] Protocol? Yes. [place] Protocol is required. Procedure: Procedure performed: cystoscopy The patient was placed supine with all pressure points well padded. with Betadine. lidocaine 2% topical gel was inserted into urethra for local anesthesia. The flexible cystoscope was lubricated and placed into the urethral tract under direct visualization. A 360 survey of the bladder was performed. The cystoscope was reflected and the bladder neck and the ureteral orifices were inspected. The findings are detailed below. The cystoscope was removed following any additional procedures documented below. Findings: The urinary meatus appeared normal. Both ureteral orifices were normal in size, shape and position with efflux of clear urine. Post Procedure: Patient tolerated procedure with no immediate complications Post-procedure antibiotics were given (see MAR for details) EBL: minimal Provided education regarding water intake of at least 2 liters per day. Procedure Comments: Follow up with Jaimie Quintana CNP after obtaining pending CT scan. documented in this [facility]01-24-2024 History of Present illness Narrative* Keara Hilario LPN - 03/26/2023 10:30 AM EST She is here for a FU on anxiety. Anxiety: She Is taking her medication as ordered. She has noticed a decrease in symptoms. denies side effects from medication. She states when she ran out of RX she had horrible withdrawal SX of nausea and vomiting. Symptoms present include:Trouble relaxing and Becoming easily annoyed or irritable RAGHAV Score: 2 She wants to discuss chronic UTI's. She frequently has dysuria- burning with urination and left side pain that lasts around 2 weeks. She states she eats AZO like candy. She states she has been seen at [facility]. Last was [place] [facility] 10/30/22. * Corinna Jackson APRN-LINEMAN A CLASS - 03/26/2023 10:30 AM EST Subjective History of Present Illness Chief Complaint Patient presents with Anxiety She is here for a FU on anxiety. Anxiety: She Is taking her medication as ordered. She has noticed a decrease in symptoms. denies side effects from medication. She states when she ran out of RX she had horrible withdrawal SX of nausea and vomiting. Symptoms present include:Trouble relaxing and Becoming easily annoyed or irritable RAGHAV Score: 2 She wants to discuss chronic UTI's. She frequently has dysuria- burning with urination and left side pain that lasts around 2 weeks. She is not having UTI symptoms today, but is having more like cramps today. She states she eats AZO like candy. She states she has been seen at [facility]. Last was [place] [facility] 10/30/22. States they told her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 unspecified Recurrent UTI Urinary tract infection, site not specified 8 weeks gestation of ([facility]) Skin lesion Unspecified disorder of skin and subcutaneous tissue documented in this encounter [facility] Work Phone: Evaluation note* Diagnosis Palpitations [facility]* Diagnosis Fever, unspecified fever cause- Primary Pharyngitis, unspecified etiology Nausea Nausea alone documented in this encounter [facility] note Author Anila Weir [facility] Note Date/Time July 13, 2024 8:59a [facility] [address] [place] [address], [address] [place] [address] OFFICE VISIT Date of Service: 07/13/24 MR#: [id number] Acct: [id number] Name: AKOSUA NUNEZ Rep #: [id number] : 1995 Provider: CIARRA Weir Age/Sex: 29/F Location: [facility] Status: Signed Intake Vital Signs 05/17/24 09:30 06/14/24 11:41 07/13/24 08:36 Height 5 ft 5 in 5 ft 5 in 5 ft 5 in Weight: 155 lb 6 oz BMI 25.8 BP 112/64 Intake Visit Reasons: 28 WK OB/GLUCOSE Chief Complaint: 28 Week OB/Glucose Web Worker Required: No Is patient in pain?: No Allergies No Known Allergies Allergy (Unverified 07/13/24 08:38) Medications ?Medication ?Instructions ?Recorded ?Confirmed ?Type PNV 153-FA 400 mcg-om3 35 mg-dha tab PO 02/06/2407/13 History 25 mg-epa 5 mg-fish oil chew tablet breast pump #1 ea 05/24/24 07/13/24 Rx Last Menstrual Period: 12/26/23 Zika: Zika virus screening: Negative : Yes PFSH PFSH Surgical History H/O cystoscopy H/O breast augmentation Family History Grandfather Cancer Maternal- unsure what kind Heart disease Pacemaker- Maternal Mother Mitral valve disease Grandmother Mitral valve disease Maternal Social History adopted: No household members: spouse and children number of children: 2 current occupational status: employed 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 occupational exposures/hazards: No pets and animals: Yes pets and animals: dog(s) history of recent travel: No sexually active: Yes Smoking Status: Never smoker alcohol intake: never substance use type: does not use well-balanced diet: daily or most days caffeine: Yes Type: coffee Number of servings: 1 eating out: rarely or never during the past year weight has: remained stable what type of physical activity do you participate in: none kvng/church: [employer] seatbelt use: always do you feel safe at home: Yes 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 Date Name GA/Weeks Outcome Route Bth Weight Infant Gen Labor Lgth Anesthesia Del Locatn Provider FOB 01/06/18 Melanie 40 live - full term 6#13oz Female none [facility] Dr. Edwina Maldonado 11/29/20 Sameer 38 live - full term 6#10oz Male epidural [facility] [place] Dr. Devante Maldonado HPI 28 WK OB/GLUCOSE Details: AKOSUA NUNEZ is a 29 year old who presents for routine OB visit. OB Visit FRANCOISE Calculator Estimated Delivery Date Method Current WG Current Estimate 10/01/24 LMP (Certain) 28w 4d Expected Delivery Route/Plan Labor Preferences- CB/BF classes: no labor support person: Joel labor intervention preferences: [] pain management options preferred: limited cut cord/dad catch: yes : yes PP control planned: discussed discussed possible routes of delivery and associated risks: [] special requests: [] Specific Issue/Plans Covid status: [] Flu vaccine: [] Tdap vaccine: given Rhogam: NA LARC form signed: Yes Problem list reviewed and updated with the most current plan of care details and appropriate orders placed. Relevant counseling for the gestational age provided. Continue routine care and follow up unless otherwise noted in visit notes/problem list details Initial Weight: 131 lb Date -?-?-?-?-?-?-?-?-?-?-?-?- EGA Weight BP Urine Prot -?-?-?-?-?-?-?-?-?-?-?-?- Glucose FHR FuHt Pres Dilation -?-?-?-?-?-?-?-?-?-?-?-?- Effaced St Visit Note 02/19/24 -?-?-?-?-?-?-?-?-?-?-?-?- 7w 6d 131 lb (+0 oz) 83/63 -?-?-?-?-?-?-?-?-?-?-?-?- 161 -?-?-?-?-?-?-?-?-?-?-?-?- KW- CRL cons wit h dates. small MAMAODU noted. desires NIPT. 03/19/24 -?-?-?-?-?-?-?-?-?-?-?-?- 12w 0d 135 lb (+4 lb) 121/75 Negative -?-?-?-?-?-?-?-?-?-?-?-?- Negative 163 -?-?-?-?-?-?-?-?-?-?-?-?- JV- CRL still co nsistent with LMP. plans to do NIPT today. does not want to know gender. 04/14/24 -?-?-?-?-?-?-?-?-?-?-?-?- 15w 5d 136 lb 8 oz (+5 lb 8 oz) 115/76 Negative -?-?-?-?-?-?-?-?-?-?-?--?- Negative 145 -?-?-?-?-?-?-?-?-?-?-?-?- SM- no vb crampi ng 05/17/24 -?-?-?-?-?-?-?-?-?-?-?-?- 20w 3d 140 lb 2 oz (+9 lb 2 oz) 112/74 Negative -?-?-?-?-?-?-?-?-?-?-?-?- Negative 150 -?-?-?-?-?-?-?-?-?-?-?-?- KW- no vb/crampi ng. avni fm. anatomy US reviewed. 06/14/24 -?-?-?-?-?-?-?-?-?-?-?-?- 24w 3d 147 lb 2 oz (+16 lb 2 oz) 113/74 -?-?-?-?-?-?-?-?-?-?-?-?- 145 24 -?-?-?-?-?-?-?-?-?-?-?-?- JV- no lof, vagi nal bleeding, or dec fm. does has some vision changes, especially at night. Recommend eye exam . tdap and gct next visit. 07/13/24 -?-?-?-?-?-?-?-?-?-?-?-?- 28w 4d 155 lb 6 oz (+24 lb 6 oz) 112/64 Negative -?-?-?-?-?-?-?-?-?-?-?-?- Negative 166 28 -?-?--?-?-?-?-?-?-?-?-?-?- MH-No VB, lof. G ood Fm. Larc, tdap. 28 wk labs pending ACOG First Trimester First Trimester: Desire for , Alcohol, Tobacco Cessation, Illicit/Recreational Drug/Substance Use, Intimate Partner Violence, Barriers to care, Anticipated Course of Care, Use of Any medications, Sexual activity, Exercise, Dental Care, Sauna/Hot tub use, Seat Belt use, Childbirth classes/Hospital facilities, , Travel, Indications for Ultrasound and Screening for Aneuploidy; Discussed Unstable Housing, Discussed Communication Barriers, Discussed Environmental/Work Hazards and Discussed Toxoplasmosis Precations Second Trimester Second Trimester: Signs and Symptoms of Labor, Selecting a care provider, Reproductive Life Planning & Contreception, Care Planning and Depression/Anxiety; Discussed Tobacco Cessation and Discussed Intimate Partner Violence Third Trimester Third Trimester: Pain Management Plans, Labor support person(s), Immediate Larc, Circumcision preference Yes Yes, Infant Feeding Yes , Education and Family Medical Leave or Disability Forms ROS Const Reports system reviewed and no additional complaints, except as documented GI Denies abdominal pain, Denies nausea and Denies vomiting Exam Const General: cooperative Nutritional Appearance: well nourished GI Palpation: soft, nontender and other (gravid) Results POC Urinalysis 2 Dip (Clinic) Office Urine Glucose Negative Last Edit by Emilee Montemayor on 07/13/24 08 :49 Office Urine Protein Negative Last Edit by Emilee Montemayor on 07/13/24 08 :49 Coding Level of Care Code OB Routine Diagnoses Supervision of high risk in third trimester O09.93 Trimester: third trimester 28 weeks gestation of Z3A.28 Weeks of gestation: 28 weeks History of recurrent UTI (urinary tract infection) Z87.440 History of anxiety Z86.59 Assessment and Plan Assessment and Plan (1) Supervision of high-risk : Status: Acute Qualifiers: Trimester: third trimester Qualified Code(s): O09.93 - Supervision of high risk , unspecified, third trimester Comment: PRR, , FRANCOISE 10/01/24, surprise PC Melanie, Sameer Joel (2) : Status: Acute Qualifiers: Weeks of gestation: 28 weeks Qualified Code(s): Z3A.28 - 28 weeks gestation of Comment: NIPT low risk, carrier and afp negative. (3) History of recurrent UTI (urinary tract infection): Status: Acute Comment: last UTI was December (4) History of anxiety: Status: Acute Comment: stopped lexapro in November,. Stable Orders: Orders POC Urinalysis 2 Dip (Clinic) Today Plan problem list reviewed and updated for most current plan of care and appropriate orders placed. Relevant counseling for the gestational age appropriate provided and ACOG education checklist updated. Continue routine care and follow up. 07/13/24 0859 <Electronically signed by Anila wan NP METALSMITH APPRENTICE-C> Date _ Anila Weir NP METALSMITH APPRENTICE-C Cosigner Signature: Date (if applicable) CC: ~ [facility] Work Phone: Progress note Author Zo Dyer [facility] Note Date/Time August 12, 2024 10:5 4am [facility] [address], [address] [place] [address] OFFICE VISIT Date of Service: 08/12/24 MR#: [id number] Acct: [id number] Name: AKOSUA NUNEZ Rep #: [id number] : 1995 Provider: DAVID Dyer Age/Sex: 29/F Location: [facility] [place] Status: Signed Intake Vital Signs 07/13/24 08:36 07/29/24 14:05 08/12/24 10:36 08/12/24 10:40 Height 5 ft 5 in 5 ft 5 in 5 ft 5 in 5 ft 5 in Weight: 157 lb 6 oz BMI 26.2 BP 109/74 Intake Visit Reasons: 32wk ob Web Worker Required: No Is patient in pain?: No Allergies No Known Allergies Allergy (Unverified 08/12/24 10:37) Medications ?Medication ?Instructions ?Recorded ?Confirmed ?Type PNV 153-FA 400 mcg-om3 35 mg-dha tab PO 02/06/2408/12 History 25 mg-epa 5 mg-fish oil chew tablet breast pump #1 ea 05/24/24 08/12/24 Rx Last Menstrual Period: 12/26/23 Zika: Zika virus screening: Negative : No PFSH PFSH Surgical History H/O cystoscopy H/O breast augmentation Family History Grandfather Cancer Maternal- unsure what kind Heart disease Pacemaker- Maternal Mother Mitral valve disease Grandmother Mitral valve disease Maternal Social History adopted: No household members: spouse and children number of children: 2 current occupational status: employed 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 occupational exposures/hazards: No pets and animals: Yes pets and animals: dog(s) history of recent travel: No sexually active: Yes Smoking Status: Never smoker alcohol intake: never substance use type: does not use well-balanced diet: daily or most days caffeine: Yes Type: coffee Number of servings: 1 eating out: rarely or never during the past year weight has: remained stable what type of physical activity do you participate in: none kvng/church: [employer] seatbelt use: always do you feel safe at home: Yes 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 Date Name GA/Weeks Outcome Route Bth Weight Gen Labor Lgth Anesthesia Del Locatn Provider FOB 01/06/18 Melanie 40 live - full term 6#13oz Female none [facility] Dr. Edwina Maldonado 11/29/20 Sameer 38 live - full term 6#10oz Male epidural [facility] in [place] Dr. Devante Maldonado HPI 32wk ob Details: AKOSUA NUNEZ is a 29 year old who presents for routine OB visit. OB Visit FRANCOISE Calculator Estimated Delivery Date Method Current WG Current Estimate 10/01/24 LMP (Certain) 32w 6d Expected Delivery Route/Plan Labor Preferences- CB/BF classes: no labor support person: Joel labor intervention preferences: [] pain management options preferred: limited cut cord/dad catch: yes : yes PP control planned: discussed discussed possible routes of delivery and associated risks: [] special requests: [] Specific Issue/Plans Covid status: [] Flu vaccine: [] Tdap vaccine: given Rhogam: NA LARC form signed: Yes Problem list reviewed and updated with the most current plan of care details and appropriate orders placed. Relevant counseling for the gestational age provided. Continue routine care and follow up unless otherwise noted in visit notes/problem list details Initial Weight: 131 lb Date -?-?-?-?-?-?-?-?-?-?-?-?- EGA Weight BP Urine Prot -?-?-?-?-?-?-?-?-?-?-?-?- Glucose FHR FuHt Pres Dilation -?-?-?-?-?-?-?-?-?-?-?-?- Effaced St Visit Note 02/19/24 -?-?-?-?-?-?-?-?-?-?-?-?- 7w 6d 131 lb (+0 oz) 83/63 -?-?-?-?-?-?-?-?-?-?-?-?- 161 -?-?-?-?-?-?-?-?-?-?-?-?- KW- CRL cons wit h dates. helio MAMADOU noted. desires NIPT. 03/19/24 -?-?-?-?-?-?-?-?-?-?-?-?- 12w 0d 135 lb (+4 lb) 121/75 Negative -?-?-?-?-?-?-?-?-?-?-?-?- Negative 163 -?-?-?-?-?-?-?-?-?-?-?-?- JV- CRL still co nsistent with LMP. plans to do NIPT today. does not want to know gender. 04/14/24 -?-?-?-?-?-?-?-?-?-?-?-?- 15w 5d 136 lb 8 oz (+5 lb 8 oz) 115/76 Negative -?-?-?-?-?-?-?-?-?-?-?-?- Negative 145 -?-?-?-?-?-?-?-?-?-?-?-?- SM- no vb crampi ng 05/17/24 -?-?-?-?-?-?-?-?-?-?-?-?- 20w 3d 140 lb 2 oz (+9 lb 2 oz) 112/74 Negative -?-?-?-?-?-?-?-?-?-?-?-?- Negative 150 -?-?-?-?-?-?-?-?-?-?-?-?- KW- no vb/crampi ng. good fm. anatomy US reviewed. 06/14/24 -?-?-?-?-?-?-?-?-?-?-?--?- 24w 3d 147 lb 2 oz (+16 lb 2 oz) 113/74 -?-?-?-?-?-?-?-?-?-?-?-?- 145 24 -?-?-?-?-?-?-?-?-?-?-?-?- JV- no lof, vagi nal bleeding, or dec fm. does has some vision changes, especially at night. Recommend eye exam . tdap and gct next visit. 07/13/24 -?-?-?-?-?-?-?-?-?-?-?-?- 28w 4d 155 lb 6 oz (+24 lb 6 oz) 112/64 Negative -?-?-?-?-?-?-?-?-?-?-?-?- Negative 166 28 -?-?-?-?-?-?-?-?-?-?-?-?- MH-No VB, lof. G ood Fm. Larc, tdap. 28 wk labs pending 07/29/24 -?-?-?-?-?-?-?-?-?-?-?-?- 30w 6d 158 lb 2 oz (+27 lb 2 oz) 110/70 Negative -?-?-?-?-?-?-?-?-?--?-?-?- Negative 145 30 -?-?-?-?-?-?-?-?-?-?-?-?- KW- no vb/lof/cr amping. good fm. no concerns today. 08/12/24 -?-?-?-?-?-?-?-?-?-?-?-?- 32w 6d 157 lb 6 oz (+26 lb 6 oz) 109/74 -?-?-?-?-?-?-?-?-?-?-?-?- 150 32 -?-?-?-?-?-?-?-?-?-?-?-?- KW- no vb/lof/ct x. good fm. Will bring in FMLA papers next visit. ACOG First Trimester First Trimester: Desire for , Alcohol, Tobacco Cessation, Illicit/Recreational Drug/Substance Use, Intimate Partner Violence, Barriers to care, Anticipated Course of Care, Use of Any medications, Sexual activity, Exercise, Dental Care, Sauna/Hot tub use, Seat Belt use, Childbirth classes/Hospital facilities, Travel, Indications for Ultrasound and Screening for Aneuploidy; Discussed Unstable Housing, Discussed Communication Barriers, Discussed Environmental/Work Hazards, Discussed Toxoplasmosis Precations and Discussed Second Trimester Second Trimester: Signs and Symptoms of Labor, Selecting a care provider, Reproductive Life Planning & Contreception, Care Planning and Depression/Anxiety; Discussed Tobacco Cessation and Discussed Intimate Partner Violence Third Trimester Third Trimester: Pain Management Plans, Labor support person(s), Immediate Larc, Circumcision preference, Signs and Symptoms of Preeclampsia, Infant Feeding No , Education and Family Medical Leave or Disability Forms ROS Const Reports system reviewed and no additional complaints, except as documented Eyes Reports system reviewed and no additional complaints, except as documented ENT Reports system reviewed and no additional complaints, except as documented Card Reports system reviewed and no additional complaints, except as documented Resp Reports system reviewed and no additional complaints, except as documented GI Reports system reviewed and no additional complaints, except as documented, Denies nausea and Denies vomiting Reports system reviewed and no additional complaints, except as documented Musc Reports system reviewed and no additional complaints, except as documented Skin/Breast Reports system reviewed and no additional complaints, except as documented Neuro Yes system reviewed and no additional complaints, except as documented Psych Reports system reviewed and no additional complaints, except as documented Endo Reports system reviewed and no additional complaints, except as documented Ian/Lymph Reports system reviewed and no additional complaints, except as documented Aller/Immun Reports system reviewed and no additional complaints, except as documented Exam Const General: cooperative, healthy appearing and no acute distress Orientation: alert, awake and oriented x3 Neck Neck: normal visual inspection and full ROM Resp Effort & Inspection: normal respiratory effort, able to speak in complete sentences and symmetric chest movement GI Inspection: normal to inspection Palpation: soft and other Other: gravid Skin General: no rashes or lesions noted Neuro General: patient alert, patient awake and patient oriented x3 Cognition: normal cognition Speech: speech normal Gait: normal gait Motor: muscle tone normal throughout Extrem General: normal to inspection and full ROM Psych Appearance: grossly normal Mental Status: mental status grossly normal Mood: congruent mood Affect: normal affect Speech and Movement: speech and movement normal Attitude: cooperative Thought Process: normal Thought Content: normal Judgment: judgment good Coding Level of Care Code OB Routine Diagnoses History of anxiety Z86.59 History of recurrent UTI (urinary tract infection) Z87.440 Supervision of high risk in third trimester O09.93 Trimester: third trimester 32 weeks gestation of Z3A.32 Weeks of gestation: 32 weeks Assessment and Plan Assessment and Plan (1) History of anxiety: Status: Acute Comment: stopped lexapro in November,. Stable (2) History of recurrent UTI (urinary tract infection): Status: Acute Comment: last UTI was December (3) Supervision of high-risk : Status: Acute Qualifiers: Trimester: third trimester Qualified Code(s): O09.93 - Supervision of high risk , unspecified, third trimester Comment: PRR, , FRANCOISE 10/01/24, surprise PC Melanie, Sameer Joel (4) : Status: Acute Qualifiers: Weeks of gestation: 32 weeks Qualified Code(s): Z3A.32 - 32 weeks gestation of Comment: NIPT low risk, carrier and afp negative. Orders: Orders POC Urinalysis 2 Dip (Clinic) Today Plan Details Additional Comments: ACOG trimester education reviewed and updated. see problem list details for updated plan management information and see below for orders placed at this visit. GA appropriate handout given. 08/12/24 1052 <Electronically signed by Zo wan CNM> Date _ Zo Dyer CNM Cosigner Signature: Date (if applicable) CC: ~ [facility] Work Phone: Progress note Author Mary Carreno [facility] Note Date/Time August 23, 2024 10:0 3am [facility] [address] [place] [address], [address] [place] [address] OFFICE VISIT Date of Service: 08/23/24 MR#: [id number] Acct: [id number] Name: AKOSUA NUNEZ Rep #: [id number] : 1995 Provider: Dr. Demi Lundberg, Age/Sex: 29/F Location: [facility] [place] Status: Signed Intake Vital Signs 07/13/24 08:36 07/13/24 09:12 08/12/24 10:40 08/23/24 09:29 08/23/24 09:29 Height 5 ft 5 in 5 ft 5 in 5 ft 5 in 5 ft 5 in 5 ft 5 in Weight: 161 lb 2 oz BMI 26.8 BP 117/77 Intake Visit Reasons: 34wk ob Web Worker Required: No Is patient in pain?: No Allergies No Known Allergies Allergy (Verified 08/23/24 09:29) Medications ?Medication ?Instructions ?Recorded ?Confirmed ?Type PNV 153-FA 400 mcg-om3 35 mg-dha tab PO 02/06/2408/23 History 25 mg-epa 5 mg-fish oil chew tablet breast pump #1 ea 05/24/24 08/23/24 Rx Last Menstrual Period: 12/26/23 Zika: Zika virus screening: Negative : No PFSH PFSH Surgical History H/O cystoscopy H/O breast augmentation Family History Grandfather Cancer Maternal- unsure what kind Heart disease Pacemaker- Maternal Mother Mitral valve disease Grandmother Mitral valve disease Maternal Social History adopted: No household members: spouse and children number of children: 2 current occupational status: employed 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 occupational exposures/hazards: No pets and animals: Yes pets and animals: dog(s) history of recent travel: No sexually active: Yes Smoking Status: Never smoker alcohol intake: never substance use type: does not use well-balanced diet: daily or most days caffeine: Yes Type: coffee Number of servings: 1 eating out: rarely or never during the past year weight has: remained stable what type of physical activity do you participate in: none kvng/church: [employer] seatbelt use: always do you feel safe at home: Yes 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 Date Name GA/Weeks Outcome Route Bth Weight Gen Labor Lgth Anesthesia Del Locatn Provider FOB 01/06/18 Melanie 40 live - full term 6#13oz Female none [facility] Dr. Edwina Maldonado 11/29/20 Sameer 38 live - full term 6#10oz Male epidural [facility] in [place] Dr. Devante Maldonado HPI 34wk ob Details: AKOSUA NUNEZ is a 29 year old who presents for routine OB visit. OB Visit FRANCOISE Calculator Estimated Delivery Date Method Current WG Current Estimate 10/01/24 LMP (Certain) 34w 3d Expected Delivery Route/Plan Labor Preferences- CB/BF classes: no labor support person: Joel labor intervention preferences: [] pain management options preferred: limited cut cord/dad catch: yes : yes PP control planned: discussed discussed possible routes of delivery and associated risks: [] special requests: [] Specific Issue/Plans Covid status: [] Flu vaccine: [] Tdap vaccine: given Rhogam: NA LARC form signed: Yes Problem list reviewed and updated with the most current plan of care details and appropriate orders placed. Relevant counseling for the gestational age provided. Continue routine care and follow up unless otherwise noted in visit notes/problem list details Initial Weight: 131 lb Date -?-?-?-?-?-?-?-?-?-?-?-?- EGA Weight BP Urine Prot -?-?-?-?-?-?-?-?-?-?-?-?- Glucose FHR FuHt Pres Dilation -?-?-?-?-?-?-?-?-?-?-?-?- Effaced St Visit Note 02/19/24 -?-?-?-?-?-?-?-?-?-?-?-?- 7w 6d 131 lb (+0 oz) 83/63 -?-?-?-?-?-?-?-?-?-?-?-?- 161 -?-?-?-?-?-?-?-?-?-?-?-?- KW- CRL cons wit h dates. small MAMADOU noted. desires NIPT. 03/19/24 -?-?-?-?-?-?-?-?-?-?-?-?- 12w 0d 135 lb (+4 lb) 121/75 Negative -?-?-?-?-?-?-?-?-?-?-?-?- Negative 163 -?-?-?-?-?-?-?-?-?-?-?-?- JV- CRL still co nsistent with LMP. plans to do NIPT today. does not want to know gender. 04/14/24 -?-?-?-?-?-?-?-?-?-?-?-?- 15w 5d 136 lb 8 oz (+5 lb 8 oz) 115/76 Negative -?-?-?-?-?-?-?-?-?-?-?-?- Negative 145 -?-?-?-?-?-?-?-?-?-?-?-?- SM- no vb crampi ng 05/17/24 -?-?-?-?-?-?-?-?-?-?-?-?- 20w 3d 140 lb 2 oz (+9 lb 2 oz) 112/74 Negative -?-?-?-?-?-?-?-?-?-?-?-?- Negative 150 -?-?-?-?-?-?-?-?-?-?-?-?- KW- no vb/crampi ng. good fm. anatomy US reviewed. 06/14/24 -?-?-?-?-?-?-?-?-?-?-?-?- 24w 3d 147 lb 2 oz (+16 lb 2 oz) 113/74 -?-?-?-?-?-?-?-?-?-?-?-?- 145 24 -?-?-?-?-?-?-?-?-?-?-?-?- JV- no lof, vagi nal bleeding, or dec fm. does has some vision changes, especially at night. Recommend eye exam . tdap and gct next visit. 07/13/24 -?-?-?-?-?-?-?-?-?-?-?-?- 28w 4d 155 lb 6 oz (+24 lb 6 oz) 112/64 Negative -?-?-?-?-?-?-?-?-?-?-?-?- Negative 166 28 -?-?-?-?-?-?-?-?-?-?-?-?- MH-No VB, lof. G ood Fm. Larc, tdap. 28 wk labs pending 07/29/24 -?-?-?-?-?-?-?-?-?-?-?-?- 30w 6d 158 lb 2 oz (+27 lb 2 oz) 110/70 Negative -?-?-?-?-?-?-?-?-?-?-?-?- Negative 145 30 -?-?-?-?-?-?-?-?-?-?-?-?- KW- no vb/lof/cr amping. good fm. no concerns today. 08/12/24 -?-?-?-?-?-?-?-?-?-?-?-?- 32w 6d 157 lb 6 oz (+26 lb 6 oz) 109/74 -?-?-?-?-?-?-?-?-?-?-?-?- 150 32 -?-?-?-?-?-?-?-?-?-?-?-?- KW- no vb/lof/ct x. good fm. Will bring in FMLA papers next visit. 08/23/24 -?-?-?-?-?-?-?-?-?-?-?-?- 34w 3d 161 lb 2 oz (+30 lb 2 oz) 117/77 Negative -?-?-?-?-?-?-?-?-?-?-?-?- Negative 163 33 -?-?-?-?-?-?-?-?-?-?-?-?- JV- no lof, vagi nal bleeding, or dec fm. ACOG First Trimester First Trimester: Desire for , Alcohol, Tobacco Cessation, Illicit/Recreational Drug/Substance Use, Intimate Partner Violence, Barriers to care, Anticipated Course of Care, Use of Any medications, Sexual activity, Exercise, Dental Care, Sauna/Hot tub use, Seat Belt use, Childbirth classes/Hospital facilities, Travel, Indications for Ultrasound and Screening for Aneuploidy; Discussed Unstable Housing, Discussed Communication Barriers, Discussed Environmental/Work Hazards, Discussed Toxoplasmosis Precations and Discussed Second Trimester Second Trimester: Signs and Symptoms of Labor, Selecting a care provider, Reproductive Life Planning & Contreception, Care Planning and Depression/Anxiety; Discussed Tobacco Cessation and Discussed Intimate Partner Violence Third Trimester Third Trimester: Pain Management Plans, Labor support person(s), Immediate Larc, Circumcision preference, Signs and Symptoms of Preeclampsia, Feeding No , Education and Family Medical Leave or Disability Forms Results POC Urinalysis 2 Dip (Clinic) Office Urine Glucose Negative Last Edit by Karen Faust on 08/23/24 09: 34 Office Urine Protein Negative Last Edit by Karen Faust on 08/23/24 09: 34 Coding Level of Care Code OB Routine Diagnoses History of anxiety Z86.59 History of recurrent UTI (urinary tract infection) Z87.440 Supervision of high risk in third trimester O09.93 Trimester: third trimester 34 weeks gestation of Z3A.34 Weeks of gestation: 34 weeks Assessment and Plan Assessment and Plan (1) History of anxiety: Status: Acute Comment: stopped lexapro in November,. Stable (2) History of recurrent UTI (urinary tract infection): Status: Acute Comment: last UTI was December (3) Supervision of high-risk : Status: Acute Qualifiers: Trimester: third trimester Qualified Code(s): O09.93 - Supervision of high risk , unspecified, third trimester Comment: PRR, , FRANCOISE 10/01/24, surprise DAVID Navarro, Sameer Joel (4) : Status: Acute Qualifiers: Weeks of gestation: 34 weeks Qualified Code(s): Z3A.34 - 34 weeks gestation of Comment: NIPT low risk, carrier and afp negative. Orders: Orders POC Urinalysis 2 Dip (Clinic) Today 08/23/24 1003 <Electronically signed by Mary Mullen DO> Date _ Mary Lundberg DO Cosigner Signature: Date (if applicable) CC: ~ [facility] Work Phone: Progress note Author Mary Carreno [facility] Note Date/Time September 09, 2024 10:5 7am [facility] [address] [place] [address], [address] [place] [address] OFFICE VISIT Date of Service: 09/09/24 MR#: [id number] Acct: [id number] Name: AKOSUA NUNEZ Rep #: [id number] : 1995 Provider: Dr. Demi Lundberg DO Age/Sex: 29/F Location: [facility] [place] [facility] Status: Signed Intake Vital Signs 07/13/24 09:12 08/23/24 09:29 09/09/24 10:19 09/09/24 10:23 Height 5 ft 5 in 5 ft 5 in 5 ft 5 in 5 ft 5 in Weight: 162 lb BMI 26.9 BP 118/81 H Intake Visit Reasons: 36wk ob Web Worker Required: No Is patient in pain?: No Allergies No Known Allergies Allergy (Verified 09/09/24 10:19) Medications ?Medication ?Instructions ?Recorded ?Confirmed ?Type PNV 153-FA 400 mcg-om3 35 mg-dha tab PO 02/06/2409/09 History 25 mg-epa 5 mg-fish oil chew tablet breast pump #1 ea 05/24/24 09/09/24 Rx Last Menstrual Period: 12/26/23 Zika: Zika virus screening: Negative : No PFSH PFSH Surgical History H/O cystoscopy H/O breast augmentation Family History Grandfather Cancer Maternal- unsure what kind Heart disease Pacemaker- Maternal Mother Mitral valve disease Grandmother Mitral valve disease Maternal Social History adopted: No household members: spouse and children number of children: 2 current occupational status: employed 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 occupational exposures/hazards: No pets and animals: Yes pets and animals: dog(s) history of recent travel: No sexually active: Yes Smoking Status: Never smoker alcohol intake: never substance use type: does not use well-balanced diet: daily or most days caffeine: Yes Type: coffee Number of servings: 1 eating out: rarely or never during the past year weight has: remained stable what type of physical activity do you participate in: none kvng/church: [employer] seatbelt use: always do you feel safe at home: Yes 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 Date Name GA/Weeks Outcome Route Bth Weight Infant Gen Labor Lgth Anesthesia Del Locatn Provider FOB 01/06/18 Melanie 40 live - full term 6#13oz Female none [facility] Dr. Edwina Maldonado 11/29/20 Sameer 38 live - full term 6#10oz Male epidural [facility] in [place] Dr. Devante Maldonado HPI 36wk ob Details: AKOSUA NUNEZ is a 29 year old who presents for routine OB visit. OB Visit FRANCOISE Calculator Estimated Delivery Date Method Current WG Current Estimate 10/01/24 LMP (Certain) 36w 6d Expected Delivery Route/Plan Labor Preferences- CB/BF classes: no labor support person: Joel labor intervention preferences: [] pain management options preferred: limited cut cord/dad catch: yes : yes PP control planned: discussed discussed possible routes of delivery and associated risks: [] special requests: [] Specific Issue/Plans Covid status: [] Flu vaccine: [] Tdap vaccine: given Rhogam: NA LARC form signed: Yes Problem list reviewed and updated with the most current plan of care details and appropriate orders placed. Relevant counseling for the gestational age provided. Continue routine care and follow up unless otherwise noted in visit notes/problem list details Initial Weight: 131 lb Date -?-?-?-?-?-?-?-?-?-?-?-?- EGA Weight BP Urine Prot -?-?-?-?-?-?-?-?-?-?-?-?- Glucose FHR FuHt Pres Dilation -?-?-?-?-?-?-?-?-?-?-?-?- Effaced St Visit Note 02/19/24 -?-?-?-?-?-?-?-?-?-?-?-?- 7w 6d 131 lb (+0 oz) 83/63 -?-?-?-?-?-?-?-?-?-?-?-?- 161 -?-?-?-?-?-?-?-?-?-?-?-?- KW- CRL cons wit h dates. small MAMADOU noted. desires NIPT. 03/19/24 -?-?-?-?-?-?-?-?-?-?-?-?- 12w 0d 135 lb (+4 lb) 121/75 Negative -?-?-?-?-?-?-?-?-?-?-?-?- Negative 163 -?-?-?-?-?-?-?-?-?-?-?-?- JV- CRL still co nsistent with LMP. plans to do NIPT today. does not want to know gender. 04/14/24 -?-?-?-?-?-?-?-?-?-?-?-?- 15w 5d 136 lb 8 oz (+5 lb 8 oz) 115/76 Negative -?-?-?-?-?-?-?-?-?-?-?-?- Negative 145 -?-?-?-?-?-?-?-?-?-?-?-?- SM- no vb crampi ng 05/17/24 -?-?-?-?-?-?-?-?-?-?-?-?- 20w 3d 140 lb 2 oz (+9 lb 2 oz) 112/74 Negative -?-?-?-?-?-?-?-?-?-?-?-?- Negative 150 -?-?-?-?-?-?-?-?-?-?-?-?- KW- no vb/crampi ng. good fm. anatomy US reviewed. 06/14/24 -?-?-?-?-?-?-?--?-?-?-?-?- 24w 3d 147 lb 2 oz (+16 lb 2 oz) 113/74 -?-?-?-?-?-?-?-?-?-?-?-?- 145 24 -?-?-?-?-?-?-?-?-?-?-?-?- JV- no lof, vagi nal bleeding, or dec fm. does has some vision changes, especially at night. Recommend eye exam . tdap and gct next visit. 07/13/24 -?-?-?-?-?-?-?-?-?-?-?-?- 28w 4d 155 lb 6 oz (+24 lb 6 oz) 112/64 Negative -?-?-?-?-?-?-?-?-?-?-?-?- Negative 166 28 -?-?-?-?-?-?-?-?-?-?-?-?- MH-No VB, lof. G ood Fm. Larc, tdap. 28 wk labs pending 07/29/24 -?-?-?-?-?-?-?-?-?-?-?-?- 30w 6d 158 lb 2 oz (+27 lb 2 oz) 110/70 Negative -?-?-?-?-?--?-?-?-?-?-?-?- Negative 145 30 -?-?-?-?-?-?-?-?-?-?-?-?- KW- no vb/lof/cr amping. good fm. no concerns today. 08/12/24 -?-?-?-?-?-?-?-?-?-?-?-?- 32w 6d 157 lb 6 oz (+26 lb 6 oz) 109/74 -?-?-?-?-?-?-?-?-?-?-?-?- 150 32 -?-?-?-?-?-?-?-?-?-?-?-?- KW- no vb/lof/ct x. good fm. Will bring in FMLA papers next visit. 08/23/24 -?-?-?-?-?-?-?-?-?-?-?-?- 34w 3d 161 lb 2 oz (+30 lb 2 oz) 117/77 Negative -?-?-?-?-?-?-?-?-?-?-?-?- Negative 163 33 -?-?-?-?-?-?-?-?-?-?-?-?- JV- no lof, vagi nal bleeding, or dec fm. 09/09/24 -?-?-?-?-?-?-?-?-?-?-?-?- 36w 6d 162 lb (+31 lb) 118/81 Negative -?-?-?-?-?-?-?-?-?-?-?-?- Negative 160 38.5 Cephalic 1 -?-?-?-?-?-?-?-?-?-?-?-?- 50 -2 JV- biomet refugio us ordered for LGA on exam today. no complaints. GBS collected. ACOG First Trimester First Trimester: Desire for , Alcohol, Tobacco Cessation, Illicit/Recreational Drug/Substance Use, Intimate Partner Violence, Barriers to care, Anticipated Course of Care, Use of Any medications, Sexual activity, Exercise, Dental Care, Sauna/Hot tub use, Seat Belt use, Childbirth classes/Hospital facilities, Travel, Indications for Ultrasound and Screening for Aneuploidy; Discussed Unstable Housing, Discussed Communication Barriers, Discussed Environmental/Work Hazards, Discussed Toxoplasmosis Precations and Discussed Second Trimester Second Trimester: Signs and Symptoms of Labor, Selecting a care provider, Reproductive Life Planning & Contreception, Care Planning and Depression/Anxiety; Discussed Tobacco Cessation and Discussed Intimate Partner Violence Third Trimester Third Trimester: Pain Management Plans, Labor support person(s), Immediate Larc, Circumcision preference, Signs and Symptoms of Preeclampsia, Infant Feeding No , [place] Education and Family Medical Leave or Disability Forms Results POC Urinalysis 2 Dip (Clinic) Office Urine Glucose Negative Last Edit by Anila Soto on 09/09/24 10:24 Office Urine Protein Negative Last Edit by Anila Soto on 09/09/24 10:24 Coding Level of Care Code OB Routine Diagnoses History of anxiety Z86.59 History of recurrent UTI (urinary tract infection) Z87.440 Supervision of high risk in third trimester O09.93 Trimester: third trimester 36 weeks gestation of Z3A.36 Weeks of gestation: 36 weeks Assessment and Plan Assessment and Plan (1) History of anxiety: Status: Acute Comment: stopped lexapro in November,. Stable (2) History of recurrent UTI (urinary tract infection): Status: Acute Comment: last UTI was December (3) Supervision of high-risk : Status: Acute Qualifiers: Trimester: third trimester Qualified Code(s): O09.93 - Supervision of high risk , unspecified, third trimester Comment: PRR, , FRANCOISE 10/01/24, surprise PC Melanie, Sameer Joel (4) : Status: Acute Qualifiers: Weeks of gestation: 36 weeks Qualified Code(s): Z3A.36 - 36 weeks gestation of Comment: NIPT low risk, carrier and afp negative. Orders: Orders POC Urinalysis 2 Dip (Clinic) Today Culture, Group B Streptococcus Today O09.93 - Supervision of high risk , unspecified, third trimester, O26.849 - Uterine size-date discrepancy, unspecified trimester OB Limited With Biometrics Today O26.849 - Uterine size-date discrepancy, unspecified trimester 09/09/24 1057 <Electronically signed by Mary Mullen DO> Date _ Mary Lundberg DO Cosigner Signature: Date (if applicable) CC: ~ [facility] Work Phone: Progress note Author Mary Carreno [facility] Note Date/Time September 16, 2024 11:2 1am [facility] [address], [address] [place] [id number] OFFICE VISIT Date of Service: 09/16/24 MR#: [id number] Acct: [id number] Name: AKOSUA NUNEZ Rep #: [id number] : 1995 Provider: Dr. Demi Lundberg, Age/Sex: 29/F Location: [facility] [place] Status: Signed Intake Vital Signs 08/12/24 10:40 09/09/24 10:23 09/16/24 10:46 Height 5 ft 5 in 5 ft 5 in 5 ft 5 in Weight: 161 lb 2 oz BMI 26.8 BP 128/80 H Intake Visit Reasons: 37 WK OB Chief Complaint: 37wk OB Web Worker Required: No Is patient in pain?: No Allergies No Known Allergies Allergy (Verified 09/16/24 10:45) Medications ?Medication ?Instructions ?Recorded ?Confirmed ?Type PNV 153-FA 400 mcg-om3 35 mg-dha tab PO 02/06/2409/16 History 25 mg-epa 5 mg-fish oil chew tablet breast pump #1 ea 05/24/24 09/16/24 Rx Last Menstrual Period: 12/26/23 : No PFSH PFSH Surgical History H/O cystoscopy H/O breast augmentation Family History Grandfather Cancer Maternal- unsure what kind Heart disease Pacemaker- Maternal Mother Mitral valve disease Grandmother Mitral valve disease Maternal Social History adopted: No household members: spouse and children number of children: 2 current occupational status: employed 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 current occupational exposures/hazards: No pets and animals: Yes pets and animals: dog(s) history of recent travel: No sexually active: Yes Smoking Status: Never smoker alcohol intake: never substance use type: does not use well-balanced diet: daily or most days caffeine: Yes Type: coffee Number of servings: 1 eating out: rarely or never during the past year weight has: remained stable what type of physical activity do you participate in: none kvng/church: [employer] seatbelt use: always do you feel safe at home: Yes 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 Date Name GA/Weeks Outcome Route Bth Weight Infant Gen Labor Lgth Anesthesia Del Locatn Provider FOB 01/06/18 Melanie 40 live - full term 6#13oz Female none [facility] Dr. Edwina Maldonado 11/29/20 Sameer 38 live - full term 6#10oz Male epidural [facility] in [place] Dr. Devante Maldonado HPI 37 WK OB Details: AKOSUA NUNEZ is a 29 year old who presents for routine OB visit. OB Visit FRANCOISE Calculator Estimated Delivery Date Method Current WG Current Estimate 10/01/24 LMP (Certain) 37w 6d Expected Delivery Route/Plan Labor Preferences- CB/BF classes: no labor support person: Joel labor intervention preferences: [] pain management options preferred: limited cut cord/dad catch: yes : yes PP control planned: discussed discussed possible routes of delivery and associated risks: [] special requests: [] Specific Issue/Plans Covid status: [] Flu vaccine: [] Tdap vaccine: given Rhogam: NA LARC form signed: Yes Problem list reviewed and updated with the most current plan of care details and appropriate orders placed. Relevant counseling for the gestational age provided. Continue routine care and follow up unless otherwise noted in visit notes/problem list details Initial Weight: 131 lb Date -?-?-?-?-?-?-?-?-?-?-?-?- EGA Weight BP Urine Prot -?-?-?-?-?-?-?-?-?-?-?-?- Glucose FHR FuHt Pres Dilation -?-?-?-?-?-?-?-?-?-?-?-?- Effaced St Visit Note 02/19/24 -?-?-?-?-?-?-?-?-?-?-?-?- 7w 6d 131 lb (+0 oz) 83/63 -?-?-?-?-?-?-?-?-?-?-?-?- 161 -?-?-?-?-?-?-?-?-?-?-?-?- KW- CRL cons wit h dates. small MAMADOU noted. desires NIPT. 03/19/24 -?-?-?-?-?-?-?-?-?-?-?-?- 12w 0d 135 lb (+4 lb) 121/75 Negative -?-?-?-?-?-?-?-?-?-?-?-?- Negative 163 -?-?-?-?-?-?-?-?-?-?-?-?- JV- CRL still co nsistent with LMP. plans to do NIPT today. does not want to know gender. 04/14/24 -?-?-?-?-?-?-?-?-?-?-?-?- 15w 5d 136 lb 8 oz (+5 lb 8 oz) 115/76 Negative -?-?-?-?-?-?-?-?-?-?-?-?- Negative 145 -?-?-?-?-?-?-?-?-?-?-?-?- SM- no vb crampi ng 05/17/24 -?-?-?-?-?-?-?-?-?-?-?-?- 20w 3d 140 lb 2 oz (+9 lb 2 oz) 112/74 Negative -?-?-?-?-?-?-?-?-?-?-?-?- Negative 150 -?-?-?-?-?-?-?-?-?-?-?-?- KW- no vb/crampi ng. good fm. anatomy US reviewed. 06/14/24 -?-?-?-?-?-?-?-?-?-?-?-?- 24w 3d 147 lb 2 oz (+16 lb 2 oz) 113/74 -?-?-?-?-?-?-?-?-?-?-?-?- 145 24 -?-?-?-?-?-?-?-?-?-?-?-?- JV- no lof, vagi nal bleeding, or dec fm. does has some vision changes, especially at night. Recommend eye exam . tdap and gct next visit. 07/13/24 -?-?-?-?-?-?-?-?-?-?-?-?- 28w 4d 155 lb 6 oz (+24 lb 6 oz) 112/64 Negative -?-?-?-?-?-?-?-?-?-?-?-?- Negative 166 28 -?-?-?-?-?-?-?-?-?-?-?-?- MH-No VB, lof. G ood Fm. Larc, tdap. 28 wk labs pending 07/29/24 -?-?-?-?-?-?-?-?-?-?-?-?- 30w 6d 158 lb 2 oz (+27 lb 2 oz) 110/70 Negative -?-?-?-?-?-?-?-?-?-?-?-?- Negative 145 30 -?-?-?-?-?-?-?-?-?-?-?-?- KW- no vb/lof/cr amping. good fm. no concerns today. 08/12/24 -?-?-?-?-?-?-?-?-?-?-?-?- 32w 6d 157 lb 6 oz (+26 lb 6 oz) 109/74 -?-?-?-?-?-?-?-?-?-?-?-?- 150 32 -?-?-?-?-?-?-?-?-?-?-?-?- KW- no vb/lof/ct x. good fm. Will bring in FMLA papers next visit. 08/23/24 -?-?-?-?-?-?-?-?-?-?-?-?- 34w 3d 161 lb 2 oz (+30 lb 2 oz) 117/77 Negative -?-?-?-?-?-?-?-?-?-?-?-?- Negative 163 33 -?-?-?-?-?-?-?-?-?-?-?-?- JV- no lof, vagi nal bleeding, or dec fm. 09/09/24 -?-?-?-?-?-?-?-?-?-?-?-?- 36w 6d 162 lb (+31 lb) 118/81 Negative -?-?-?-?-?-?-?-?-?-?-?-?- Negative 160 38.5 Cephalic 1 -?-?-?-?-?-?-?-?-?-?-?-?- 50 -2 JV- biomet refugio us ordered for LGA on exam today. no complaints. GBS collected. 09/16/24 -?-?-?-?-?-?-?-?-?-?-?-?- 37w 6d 161 lb 2 oz (+30 lb 2 oz) 128/80 Negative -?-?-?-?-?-?-?-?-?-?-?-?- Negative 160 37.5 Cephalic 1 -?-?-?-?-?-?-?-?-?-?-?-?- 50 -2 JV- normal growth , gbs pos. patient wants a 39 week IOL. ACOG First Trimester First Trimester: Desire for , Alcohol, Tobacco Cessation, Illicit/Recreational Drug/Substance Use, Intimate Partner Violence, Barriers to care, Anticipated Course of Care, Use of Any medications, Sexual activity, Exercise, Dental Care, Sauna/Hot tub use, Seat Belt use, Childbirth classes/Hospital facilities, Travel, Indications for Ultrasound and Screening for Aneuploidy; Discussed Unstable Housing, Discussed Communication Barriers, Discussed Environmental/Work Hazards, Discussed Toxoplasmosis Precations and Discussed Second Trimester Second Trimester: Signs and Symptoms of Labor, Selecting a care provider, Reproductive Life Planning & Contreception, Care Planning and Depression/Anxiety; Discussed Tobacco Cessation and Discussed Intimate Partner Violence Third Trimester Third Trimester: Pain Management Plans, Labor support person(s), Immediate Larc, Circumcision preference, Signs and Symptoms of Preeclampsia, Feeding No , [place] Education and Family Medical Leave or Disability Forms Results POC Urinalysis 2 Dip (Clinic) Office Urine Glucose Negative Last Edit by Emma Shin on 09/16/24 10:54 Office Urine Protein Negative Last Edit by Emma Shin on 09/16/24 10:54 Coding Level of Care Code OB Routine Diagnoses GBS (group B streptococcus) UTI complicating O23.40; B95.1 Uterine size date discrepancy O26.849 History of anxiety Z86.59 History of recurrent UTI (urinary tract infection) Z87.440 Supervision of high risk in third trimester O09.93 Trimester: third trimester 37 weeks gestation of Z3A.37 Weeks of gestation: 37 weeks Assessment and Plan Assessment and Plan (1) GBS (group B streptococcus) UTI complicating : Status: Acute Comment: treat in labor (2) Uterine size date discrepancy: Status: Acute Comment: 37w: EFW 50%, AC 64%. Nl (3) History of anxiety: Status: Acute Comment: stopped lexapro in November,. Stable (4) History of recurrent UTI (urinary tract infection): Status: Acute Comment: last UTI was December (5) Supervision of high-risk : Status: Acute Qualifiers: Trimester: third trimester Qualified Code(s): O09.93 - Supervision of high risk , unspecified, third trimester Comment: PRR, , FRANCOISE 10/01/24, surprise DAVID Navarro, Sameer Joel (6) : Status: Acute Qualifiers: Weeks of gestation: 37 weeks Qualified Code(s): Z3A.37 - 37 weeks gestation of Comment: NIPT low risk, carrier and afp negative. Orders: Orders POC Urinalysis 2 Dip (Clinic) Today 09/16/24 1121 <Electronically signed by Mary Mullen DO> Date _ Mary Lundberg DO Cosigner Signature: Date (if applicable) CC: ~ [facility] Work Phone: Progress note Author Rachele Hummel [facility] Note Date/Time September 23, 2024 11:2 6am [facility] [address], [address] [place] [address] OFFICE VISIT Date of Service: 09/23/24 MR#: [id number] Acct: [id number] Name: AKOSUA NUNEZ Rep #: [id number] : 1995 Provider: Dr. Dave Hummel MD Age/Sex: 29/F Location: [facility] [place] Status: Signed Intake Vital Signs 08/12/24 10:40 09/20/24 15:50 09/23/24 10:49 Height 5 ft 5 in 5 ft 5 in 5 ft 5 in Weight: 161 lb 8 oz BMI 26.9 BP 130/79 H Intake Visit Reasons: 38 WK OB Web Worker Required: No Is patient in pain?: No Allergies No Known Allergies Allergy (Verified 09/23/24 10:50) Medications ?Medication ?Instructions ?Recorded ?Confirmed ?Type PNV 153-FA 400 mcg-om3 35 mg-dha tab PO 02/06/2409/23 History 25 mg-epa 5 mg-fish oil chew tablet breast pump #1 ea 05/24/24 09/23/24 Rx Last Menstrual Period: 12/26/23 Zika: Zika virus screening: Negative : No PFSH PFSH Surgical History H/O cystoscopy H/O breast augmentation Family History Grandfather Cancer Maternal- unsure what kind Heart disease Pacemaker- Maternal Mother Mitral valve disease Grandmother Mitral valve disease Maternal Social History adopted: No household members: spouse and children number of children: 2 current occupational status: employed 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 occupational exposures/hazards: No pets and animals: Yes pets and animals: dog(s) history of recent travel: No sexually active: Yes Smoking Status: Never smoker alcohol intake: never substance use type: does not use well-balanced diet: daily or most days caffeine: Yes Type: coffee Number of servings: 1 eating out: rarely or never during the past year weight has: remained stable what type of physical activity do you participate in: none kvng/church: [employer] seatbelt use: always do you feel safe at home: Yes 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 Date Name GA/Weeks Outcome Route Bth Weight Infant Gen Labor Lgth Anesthesia Del Locatn Provider FOB 01/06/18 Melanie 40 live - full term 6#13oz Female none [facility] Dr. Edwina Maldonado 11/29/20 Sameer 38 live - full term 6#10oz Male epidural [facility] in [place] Dr. Devante Maldonado HPI 38 WK OB Details: AKOSUA NUNEZ is a 29 year old who presents for routine OB visit. OB Visit FRANCOISE Calculator Estimated Delivery Date Method Current WG Current Estimate 10/01/24 LMP (Certain) 38w 6d Expected Delivery Route/Plan Labor Preferences- CB/BF classes: no labor support person: Joel labor intervention preferences: [] pain management options preferred: limited cut cord/dad catch: yes : yes PP control planned: discussed discussed possible routes of delivery and associated risks: [] special requests: [] Specific Issue/Plans Covid status: [] Flu vaccine: [] Tdap vaccine: given Rhogam: NA LARC form signed: Yes Problem list reviewed and updated with the most current plan of care details and appropriate orders placed. Relevant counseling for the gestational age provided. Continue routine care and follow up unless otherwise noted in visit notes/problem list details Initial Weight: 131 lb Date -?-?-?-?-?-?-?-?-?-?-?-?- EGA Weight BP Urine Prot -?-?-?-?-?-?-?-?-?-?-?-?- Glucose FHR FuHt Pres Dilation -?-?-?-?-?-?-?-?-?-?-?-?- Effaced St Visit Note 02/19/24 -?-?-?-?-?-?-?-?-?-?-?-?- 7w 6d 131 lb (+0 oz) 83/63 -?-?-?-?-?-?-?-?-?-?-?-?- 161 -?-?-?-?-?-?-?-?-?-?-?-?- KW- CRL cons wit h dates. small MAMADOU noted. desires NIPT. 03/19/24 -?-?-?-?-?-?-?-?-?-?-?-?- 12w 0d 135 lb (+4 lb) 121/75 Negative -?-?-?-?-?-?-?-?-?-?-?-?- Negative 163 -?-?-?-?-?-?-?-?-?-?-?-?- JV- CRL still co nsistent with LMP. plans to do NIPT today. does not want to know gender. 04/14/24 -?-?-?-?-?-?-?-?-?-?-?--?- 15w 5d 136 lb 8 oz (+5 lb 8 oz) 115/76 Negative -?-?-?-?-?-?-?-?-?-?-?-?- Negative 145 -?-?-?-?-?-?-?-?-?-?-?-?- SM- no vb crampi ng 05/17/24 -?-?-?-?-?-?-?-?-?-?-?-?- 20w 3d 140 lb 2 oz (+9 lb 2 oz) 112/74 Negative -?-?-?-?-?-?-?-?-?-?-?-?- Negative 150 -?-?-?-?-?-?-?-?-?-?-?-?- KW- no vb/crampi ng. good fm. anatomy US reviewed. 06/14/24 -?-?-?-?-?-?-?-?-?-?-?-?- 24w 3d 147 lb 2 oz (+16 lb 2 oz) 113/74 -?-?-?-?-?-?-?-?-?-?-?-?- 145 24 -?-?-?-?-?-?-?-?-?-?-?-?- JV- no lof, vagi nal bleeding, or dec fm. does has some vision changes, especially at night. Recommend eye exam . tdap and gct next visit. 07/13/24 -?-?-?-?-?-?-?-?-?-?-?-?- 28w 4d 155 lb 6 oz (+24 lb 6 oz) 112/64 Negative -?-?-?-?-?-?-?-?-?-?-?-?- Negative 166 28 -?-?-?-?-?-?-?-?-?-?-?-?- MH-No VB, lof. G ood Fm. Larc, tdap. 28 wk labs pending 07/29/24 -?-?-?-?-?-?-?-?-?-?-?-?- 30w 6d 158 lb 2 oz (+27 lb 2 oz) 110/70 Negative -?-?-?-?-?-?-?-?-?-?-?-?- Negative 145 30 -?-?-?-?-?-?-?-?-?-?-?-?- KW- no vb/lof/cr amping. good fm. no concerns today. 08/12/24 -?-?-?-?-?-?-?-?-?-?-?-?- 32w 6d 157 lb 6 oz (+26 lb 6 oz) 109/74 -?-?-?-?-?-?-?-?-?-?-?-?- 150 32 -?-?-?-?-?-?-?-?-?-?-?-?- KW- no vb/lof/ct x. good fm. Will bring in FMLA papers next visit. 08/23/24 -?-?-?-?-?-?-?-?-?-?-?-?- 34w 3d 161 lb 2 oz (+30 lb 2 oz) 117/77 Negative -?-?-?-?-?-?-?-?-?-?-?-?- Negative 163 33 -?-?-?-?-?-?-?-?-?-?-?-?- JV- no lof, vagi nal bleeding, or dec fm. 09/09/24 -?-?-?-?-?-?-?-?-?-?-?-?- 36w 6d 162 lb (+31 lb) 118/81 Negative -?-?-?-?-?-?-?-?-?-?-?-?- Negative 160 38.5 Cephalic 1 -?-?-?-?-?-?-?-?-?-?-?-?- 50 -2 JV- biomet refugio us ordered for LGA on exam today. no complaints. GBS collected. 09/16/24 -?-?-?-?-?-?-?-?-?-?-?-?- 37w 6d 161 lb 2 oz (+30 lb 2 oz) 128/80 Negative -?-?-?--?-?-?-?-?-?-?-?-?- Negative 160 37.5 Cephalic 1 -?-?-?-?-?-?-?-?-?-?-?-?- 50 -2 JV- normal growth , gbs pos. patient wants a 39 week IOL. 09/23/24 -?-?-?-?-?-?-?-?-?-?-?-?- 38w 6d 161 lb 8 oz (+30 lb 8 oz) 130/79 Negative -?-?-?-?-?-?-?-?-?-?-?-?- Negative 145 38 Cephalic 2 .5 -?-?-?-?-?-?-?-?-?-?-?-?- 50 -2 SM- no vb lof irregular ctx membranes swept ACOG First Trimester First Trimester: Desire for , Alcohol, Tobacco Cessation, Illicit/Recreational Drug/Substance Use, Intimate Partner Violence, Barriers to care, Anticipated Course of Care, Use of Any medications, Sexual activity, Exercise, Dental Care, Sauna/Hot tub use, Seat Belt use, Childbirth classes/Hospital facilities, Travel, Indications for Ultrasound and Screening for Aneuploidy; Discussed Unstable Housing, Discussed Communication Barriers, Discussed Environmental/Work Hazards, Discussed Toxoplasmosis Precations and Discussed Second Trimester Second Trimester: Signs and Symptoms of Labor, Selecting a care provider, Reproductive Life Planning & Contreception, Care Planning and Depression/Anxiety; Discussed Tobacco Cessation and Discussed Intimate Partner Violence Third Trimester Third Trimester: Pain Management Plans, Labor support person(s), Immediate Larc, Circumcision preference, Signs and Symptoms of Preeclampsia, Infant Feeding No , [place] Education and Family Medical Leave or Disability Forms ROS Const Denies fever(s) GI Reports as per HPI and Denies abdominal pain Reports as per HPI, Denies abnormal vaginal bleeding, Denies dysuria and Denies vaginal discharge Exam Const General: healthy appearing, comfortable and no acute distress GI Inspection: normal to inspection Palpation: soft and nontender Results POC Urinalysis 2 Dip (Clinic) Office Urine Glucose Negative Last Edit by Anila Soto on 09/23/24 10:53 Office Urine Protein Negative Last Edit by Anila Soto on 09/23/24 10:53 Coding Level of Care Code OB Routine Diagnoses Vaginal discharge during O26.899; N89.8 GBS (group B streptococcus) UTI complicating O23.40; B95.1 Uterine size date discrepancy O26.849 History of anxiety Z86.59 History of recurrent UTI (urinary tract infection) Z87.440 Supervision of high risk in third trimester O09.93 Trimester: third trimester 38 weeks gestation of Z3A.38 Weeks of gestation: 38 weeks Assessment and Plan Assessment and Plan (1) Vaginal discharge during : Status: Acute Comment: ROM neg (2) GBS (group B streptococcus) UTI complicating : Status: Acute Comment: treat in labor (3) Uterine size date discrepancy: Status: Acute Comment: 37w: EFW 50%, AC 64%. Nl (4) History of anxiety: Status: Acute Comment: stopped lexapro in November,. Stable (5) History of recurrent UTI (urinary tract infection): Status: Acute Comment: last UTI was December (6) Supervision of high-risk : Status: Acute Qualifiers: Trimester: third trimester Qualified Code(s): O09.93 - Supervision of high risk , unspecified, third trimester Comment: PRR, , FRANCOISE 10/01/24, surprise PC Melanie, Sameer Joel (7) : Status: Acute Qualifiers: Weeks of gestation: 38 weeks Qualified Code(s): Z3A.38 - 38 weeks gestation of Comment: NIPT low risk, carrier and afp negative. Orders: Orders POC Urinalysis 2 Dip (Clinic) Today 09/23/24 1126 <Electronically signed by Rachele hernandez MD> Date _ Rachele Hummel MD Cosigner Signature: Date (if applicable) CC: ~ [facility] Work Phone: Reason for referral (narrative)* Consultation (Routine) - New Request Specialty Diagnoses / Procedures Referred By Dain montenegro Referred To Contact Urology Diagnoses Dysuria Chronic UTI (urinary tract infection) Corinna Jackson, [employer] A CLASS [address] [place] [address] Jaimie Quintana, [employer] A CLASS [address] [place] [phone] Referral ID Status Reason Start Date Expiration Date V isits Requested Visits Authorized [id number] New Request 03/26/2023 04/19/2024 1 1 [facility] Consultation (Routine) - New Request Specialty Diagnoses / Procedures Referred By Dain montenegro Referred To Contact Diagnoses Change in mole Corinna Jackson, [employer] A CLASS [address] [place] [address] Reyes Wahl, [address] [place] [id number] Referral ID Status Reason Start Date Expiration Date V isits Requested Visits Authorized [id number] New Request 09/09/2023 10/03/2024 [facility]No reason for referral information [facility] Work Phone: Hospital Course * Qamar DyerDO - 01/23/2017 11:24 AM EST Formatting of this note may be different from the original. Qamar Dyer DO [facility] Hospitalists MEDICAL OBSERVATION DISCHARGE SUMMARY Akosua Kumari Admit Date: 01/22/2017 Discharge Date: 01/23/17 Family Physician: Qamar Montana MD MEDICAL OBSERVATION UNIT SUMMARY Akosua Kumari is a 22 y.o. female admitted to the hospital on 01/22/2017 for nasal abscess. Underwent I&D per ENT. Plan for home on course of PO bactrim. Improved with IV vanco while here.OP followup with Dr. Hernandez. Comments/Problems to be Addressed After Discharge Followup with Dr. Hernandez. Discharge Medication Recommendations Current Discharge Medication List START taking these medications Details oxyCODONE-acetaminophen (PERCOCET) 5-325 mg per tablet Take 1 (one) tablet by mouth every 6 (six) hours as needed for pain. Qty: 10 tablet, Refills: 0 sulfamethoxazole-trimethoprim (BACTRIM DS,SEPTRA DS) 800-160 mg per tablet Take 1 (one) tablet by mouth 2 (two) times a day for 7 days. Qty: 14 tablet, Refills: 0 STOP taking these medications doxycycline hyclate (VIBRAMYCIN) 100 MG capsule Comments: Reason for Stopping: Akosua Kumari was seen and examined on the day of discharge. The patient was appropriately risk stratified for observation level of care. in this encounter Discharge Instructions * Qamar DyerDO - 01/23/2017 Skin Abscess: Care Instructions Your Care Instructions A skin abscess is a bacterial infection that forms a pocket of pus. A boil is a kind of skin abscess. The doctor may have cut an opening in the abscess so that the pus can drain out. You may have gauze in the cut so that the abscess will stay open and keep draining. You may need antibiotics. You will need to follow up with your doctor to make sure the infection has gone away. The doctor has checked you carefully, but problems can develop later. If you notice any problems ornew symptoms, get medical treatment right away. Follow-up care is a coker part of your treatment and safety. Be sure to make and go to all appointments, and call your doctor if you are having problems. It's also a good idea to know your test resultsand keep a list of the medicines you take. How can you care for yourself at home? Apply warm and dry compresses, a heating pad set on low, or a hot water bottle 3 or 4 times a day for pain. Keep a cloth between the heat source and your skin. If your doctor prescribed antibiotics, take them as directed. Do not stop taking them just because you feel better. You need to take the full course of antibiotics. Take pain medicines exactly as directed. If the doctor gave you a prescription medicine for pain, take it as prescribed. If you are not taking a prescription pain medicine, ask your doctor if you can take an jbye-gex-gbpvott medicine. Keep your bandage clean and dry. Change the bandage whenever it gets wet or dirty, or at least one time a day. If the abscess was packed with gauze: Keep follow-up appointments to have the gauze changed or removed. If the doctor instructed you to remove the gauze, gently pull out all of the gauze when your doctor tells you to. After the gauze is removed, soak the area in warm water for 15 to 20 minutes 2 times a day, until the wound closes. When should you call for help? Call your doctor now or seek immediate medical care if: You have signs of worsening infection, such as: Increased pain, swelling, warmth, or redness. Red streaks leading from the infected skin. Pus draining from the wound. A fever. Watch closely for changes in your health, and be sure to contact your doctor if: You do not get better as expected. Where can you learn more? Log into your personal health record on [email or web address] and enter D633 in the Education box to learn more about Skin Abscess: Care Instructions. Current as of: December 14, 2015 Content Version: 11.2 2293-4446 Livevol. Care instructions adapted under license by your healthcare professional. If you have questions about a medical condition or this instruction, always ask your healthcare professional. [employer] disclaims any warranty or liability for your use of this information. in this encounter Assessments Diagnosis Abscess - Primary Cellulitis and abscess of unspecified site Summary Purpose Family History No Family History Records Found Relationship Condition Age at Onset Recorded Date/T lety grandfather Malignant neoplasm Unknown Cardiac disease Unknown mother Mitral valve disease Unknown grandmother Mitral valve disease Unknown Advance Directives No Advanced Directives Records FoundLatest Code Status on File Code Status Date Activated Date Inactivated Comments Full Code 01/22/2017 10:07 PM 01/23/2017 1:59 PM Code Status History Code Status Date Activated Date Inactivated Comments Full Code 05/03/2016 6:31 AM 05/03/2016 6:01 PM Reason for Referral Specialty Diagnoses / Procedures Referred By Contac t Referred To Contact Diagnoses Left flank pain Procedures CT ABDOMEN/PELVIS WITHOUT CONTRAST CHG CT SCAN,ABDOMENT AND PELVIS,W/O CONTRAST Jaimie Quintana, [employer] CLASS [address] [place] [address] Referral ID Status Reason Start Date Expiration Date Visits Re quested Visits Authorized [id number] Closed 03/28/2023 04/21/2024 1 1 Specialty Diagnoses / Procedures Referred By Contac t Referred To Contact Diagnoses Palpitations Procedures ECHOCARDIOGRAM AR ECHO TTHRC R-T 2D W/WOM-MODE COMPL SPEC&COLR D Anil Oneal DO [address] [facility] [address] [place] [address] [facility] Referral ID Status Reason Start Date Expiration Date Visits Re quested Visits Authorized [id number] Closed 02/20/2024 03/16/2025 1 1 Chief Complaint and Reason for Visit Chief Complaint Admit Date 12wk OB March 19, 2024 1 1:28am 16 wk ob April 14, 2024 9:28am 20 wk ob May 17, 2024 9:2 6am 24 WK OB June 14, 2024 11: 38am 28 WK OB/GLUCOSE July 13, 2024 8:31a m Reason for Visit Admit Date History of anxiety March 19, 2024 1 1:28am History of recurrent UTI (urinary tract infection) March 19, 2024 11:28am March 19, 2024 1 1:28am Supervision of high-risk Scar campos 2024 11:28am Varicella vaccination status unknown Alan hendrix 2024 11:28am History of anxiety April 14, 2024 9:28am History of recurrent UTI (urinary tract infection) April 14, 2024 9:28am April 14, 2024 9:28am Supervision of high-risk Febru nay 2024 9:28am History of anxiety May 17, 2024 9:2 6am History of recurrent UTI (urinary tract infection) May 17, 2024 9:26am May 17, 2024 9:2 6am Supervision of high-risk May 17, 2024 9:26am History of anxiety June 14, 2024 11: 38am History of recurrent UTI (urinary tract infection) June 14, 2024 11:38am June 14, 2024 11: 38am Supervision of high-risk June 14, 2024 11:38am History of anxiety July 13, 2024 8:31a m History of recurrent UTI (urinary tract infection) July 13, 2024 8:31am July 13, 2024 8:31a m Supervision of high-risk July 012024 8:31am Chief Complaint Admit Date 16 wk ob April 14, 2024 9:28am 20 wk ob May 17, 2024 9:2 6am 24 WK OB June 14, 2024 11: 38am 28 WK OB/GLUCOSE July 13, 2024 8:31a m Reason for Visit Admit Date History of anxiety April 14, 2024 9:28am History of recurrent UTI (urinary tract infection) April 14, 2024 9:28am April 14, 2024 9:28am Supervision of high-risk u nay 2024 9:28am History of anxiety May 17, 2024 9:2 6am History of recurrent UTI (urinary tract infection) May 17, 2024 9:26am May 17, 2024 9:2 6am Supervision of high-risk May 17, 2024 9:26am History of anxiety June 14, 2024 11: 38am History of recurrent UTI (urinary tract infection) June 14, 2024 11:38am June 14, 2024 11: 38am Supervision of high-risk June 14, 2024 11:38am History of anxiety July 13, 2024 8:31a m History of recurrent UTI (urinary tract infection) July 13, 2024 8:31am July 13, 2024 8:31a m Supervision of high-risk July 012024 8:31am Chief Complaint Admit Date 16 wk ob April 14, 2024 9:28am 20 wk ob May 17, 2024 9:2 6am 24 WK OB June 14, 2024 11: 38am 28 WK OB/GLUCOSE July 13, 2024 8:31a m 30 WK OB July 29, 2024 2:00p m Reason for Visit Admit Date History of anxiety April 14, 2024 9:28am History of recurrent UTI (urinary tract infection) April 14, 2024 9:28am April 14, 2024 9:28am Supervision of high-risk Febru nay 2024 9:28am History of anxiety May 17, 2024 9:2 6am History of recurrent UTI (urinary tract infection) May 17, 2024 9:26am May 17, 2024 9:2 6am Supervision of high-risk May 17, 2024 9:26am History of anxiety June 14, 2024 11: 38am History of recurrent UTI (urinary tract infection) June 14, 2024 11:38am June 14, 2024 11: 38am Supervision of high-risk June 14, 2024 11:38am History of anxiety July 13, 2024 8:31a m History of recurrent UTI (urinary tract infection) July 13, 2024 8:31am July 13, 2024 8:31a m Supervision of high-risk July 01 3t2024 8:31am History of anxiety July 29, 2024 2:00p m History of recurrent UTI (urinary tract infection) July 29, 2024 2:00pm July 29, 2024 2:00p m Supervision of high-risk July 022024 2:00pm Chief Complaint Admit Date 16 wk ob April 14, 2024 9:28am 20 wk ob May 17, 2024 9:2 6am 24 WK OB June 14, 2024 11: 38am 28 WK OB/GLUCOSE July 13, 2024 8:31a m 30 WK OB July 29, 2024 2:00p m 32wk ob August 12, 2024 10:3 4am Reason for Visit Admit Date History of anxiety April 14, 2024 9:28am History of recurrent UTI (urinary tract infection) April 14, 2024 9:28am April 14, 2024 9:28am Supervision of high-risk Febru nay 2024 9:28am History of anxiety May 17, 2024 9:2 6am History of recurrent UTI (urinary tract infection) May 17, 2024 9:26am May 17, 2024 9:2 6am Supervision of high-risk May 17, 2024 9:26am History of anxiety June 14, 2024 11: 38am History of recurrent UTI (urinary tract infection) June 14, 2024 11:38am June 14, 2024 11: 38am Supervision of high-risk June 14, 2024 11:38am History of anxiety July 13, 2024 8:31a m History of recurrent UTI (urinary tract infection) July 13, 2024 8:31am July 13, 2024 8:31a m Supervision of high-risk July 012024 8:31am History of anxiety July 29, 2024 2:00p m History of recurrent UTI (urinary tract infection) July 29, 2024 2:00pm July 29, 2024 2:00p m Supervision of high-risk July 022024 2:00pm History of anxiety August 12, 2024 10:3 4am History of recurrent UTI (urinary tract infection) August 12, 2024 10:34am August 12, 2024 10:3 4am Supervision of high-risk August 12, 2024 10:34am Chief Complaint Admit Date 20 wk ob May 17, 2024 9:2 6am 24 WK OB June 14, 2024 11: 38am 28 WK OB/GLUCOSE July 13, 2024 8:31a m 30 WK OB July 29, 2024 2:00p m 32wk ob August 12, 2024 10:3 4am 34wk ob August 23, 2024 9:24 am Reason for Visit Admit Date History of anxiety May 17, 2024 9:2 6am History of recurrent UTI (urinary tract infection) May 17, 2024 9:26am May 17, 2024 9:2 6am Supervision of high-risk May 17, 2024 9:26am History of anxiety June 14, 2024 11: 38am History of recurrent UTI (urinary tract infection) June 14, 2024 11:38am June 14, 2024 11: 38am Supervision of high-risk June 14, 2024 11:38am History of anxiety July 13, 2024 8:31a m History of recurrent UTI (urinary tract infection) July 13, 2024 8:31am July 13, 2024 8:31a m Supervision of high-risk July 012024 8:31am History of anxiety July 29, 2024 2:00p m History of recurrent UTI (urinary tract infection) July 29, 2024 2:00pm July 29, 2024 2:00p m Supervision of high-risk July 022024 2:00pm History of anxiety August 12, 2024 10:3 4am History of recurrent UTI (urinary tract infection) August 12, 2024 10:34am August 12, 2024 10:3 4am Supervision of high-risk August 12, 2024 10:34am History of anxiety August 23, 2024 9:24 am History of recurrent UTI (urinary tract infection) August 23, 2024 9:24am August 23, 2024 9:24 am Supervision of high-risk August 23, 2024 9:24am Chief Complaint Admit Date 20 wk ob May 17, 2024 9:2 6am 24 WK OB June 14, 2024 11: 38am 28 WK OB/GLUCOSE July 13, 2024 8:31a m 30 WK OB July 29, 2024 2:00p m 32wk ob August 12, 2024 10:3 4am 34wk ob August 23, 2024 9:24 am 36wk ob September 09, 2024 10:1 6am Reason for Visit Admit Date History of anxiety May 17, 2024 9:2 6am History of recurrent UTI (urinary tract infection) May 17, 2024 9:26am May 17, 2024 9:2 6am Supervision of high-risk May 17, 2024 9:26am History of anxiety June 14, 2024 11: 38am History of recurrent UTI (urinary tract infection) June 14, 2024 11:38am June 14, 2024 11: 38am Supervision of high-risk June 14, 2024 11:38am History of anxiety July 13, 2024 8:31a m History of recurrent UTI (urinary tract infection) July 13, 2024 8:31am July 13, 2024 8:31a m Supervision of high-risk July 012024 8:31am History of anxiety July 29, 2024 2:00p m History of recurrent UTI (urinary tract infection) July 29, 2024 2:00pm July 29, 2024 2:00p m Supervision of high-risk July 022024 2:00pm History of anxiety August 12, 2024 10:3 4am History of recurrent UTI (urinary tract infection) August 12, 2024 10:34am August 12, 2024 10:3 4am Supervision of high-risk August 12, 2024 10:34am History of anxiety August 23, 2024 9:24 am History of recurrent UTI (urinary tract infection) August 23, 2024 9:24am August 23, 2024 9:24 am Supervision of high-risk August 23, 2024 9:24am History of anxiety September 09, 2024 10:1 6am History of recurrent UTI (urinary tract infection) September 09, 2024 10:16am September 09, 2024 10:1 6am Supervision of high-risk September 09, 2024 10:16am Chief Complaint Admit Date 20 wk ob May 17, 2024 9:2 6am 24 WK OB June 14, 2024 11: 38am 28 WK OB/GLUCOSE July 13, 2024 8:31a m 30 WK OB July 29, 2024 2:00p m 32wk ob August 12, 2024 10:3 4am 34wk ob August 23, 2024 9:24 am 36wk ob September 09, 2024 10:1 6am LARGE FOR GESTATIONAL AGE September 13 4:23pm Chief Complaint Admit Date 24 WK OB June 14, 2024 11: 38am 28 WK OB/GLUCOSE July 13, 2024 8:31a m 30 WK OB July 29, 2024 2:00p m 32wk ob August 12, 2024 10:3 4am 34wk ob August 23, 2024 9:24 am 36wk ob September 09, 2024 10:1 6am LARGE FOR GESTATIONAL AGE September 13 4:23pm 37 WK OB September 16, 2024 10:4 0am Reason for Visit Admit Date History of anxiety June 14, 2024 11: 38am History of recurrent UTI (urinary tract infection) June 14, 2024 11:38am June 14, 2024 11: 38am Supervision of high-risk June 14, 2024 11:38am History of anxiety July 13, 2024 8:31a m History of recurrent UTI (urinary tract infection) July 13, 2024 8:31am July 13, 2024 8:31a m Supervision of high-risk July 012024 8:31am History of anxiety July 29, 2024 2:00p m History of recurrent UTI (urinary tract infection) July 29, 2024 2:00pm July 29, 2024 2:00p m Supervision of high-risk July 022024 2:00pm History of anxiety August 12, 2024 10:3 4am History of recurrent UTI (urinary tract infection) August 12, 2024 10:34am August 12, 2024 10:3 4am Supervision of high-risk August 12, 2024 10:34am History of anxiety August 23, 2024 9:24 am History of recurrent UTI (urinary tract infection) August 23, 2024 9:24am August 23, 2024 9:24 am Supervision of high-risk August 23, 2024 9:24am History of anxiety September 09, 2024 10:1 6am History of recurrent UTI (urinary tract infection) September 09, 2024 10:16am September 09, 2024 10:1 6am Supervision of high-risk September 09, 2024 10:16am GBS (group B streptococcus) UTI complica ting September 16, 2024 10:40am History of anxiety September 16, 2024 10:4 0am History of recurrent UTI (urinary tract infection) September 16, 2024 10:40am September 16, 2024 10:4 0am Supervision of high-risk September 16, 2024 10:40am Uterine size date discrepancy September 16, 2024 10:40am Chief Complaint Admit Date 24 WK OB June 14, 2024 11: 38am 28 WK OB/GLUCOSE July 13, 2024 8:31a m 30 WK OB July 29, 2024 2:00p m 32wk ob August 12, 2024 10:3 4am 34wk ob August 23, 2024 9:24 am 36wk ob September 09, 2024 10:1 6am LARGE FOR GESTATIONAL AGE September 13 4:23pm 37 WK OB September 16, 2024 10:4 0am R/O SROM September 20, 2024 3:28 pm Reason for Visit Admit Date History of anxiety June 14, 2024 11: 38am History of recurrent UTI (urinary tract infection) June 14, 2024 11:38am June 14, 2024 11: 38am Supervision of high-risk June 14, 2024 11:38am History of anxiety July 13, 2024 8:31a m History of recurrent UTI (urinary tract infection) July 13, 2024 8:31am July 13, 2024 8:31a m Supervision of high-risk July 012024 8:31am History of anxiety July 29, 2024 2:00p m History of recurrent UTI (urinary tract infection) July 29, 2024 2:00pm July 29, 2024 2:00p m Supervision of high-risk July 022024 2:00pm History of anxiety August 12, 2024 10:3 4am History of recurrent UTI (urinary tract infection) August 12, 2024 10:34am August 12, 2024 10:3 4am Supervision of high-risk August 12, 2024 10:34am History of anxiety August 23, 2024 9:24 am History of recurrent UTI (urinary tract infection) August 23, 2024 9:24am August 23, 2024 9:24 am Supervision of high-risk August 23, 2024 9:24am History of anxiety September 09, 2024 10:1 6am History of recurrent UTI (urinary tract infection) September 09, 2024 10:16am September 09, 2024 10:1 6am Supervision of high-risk September 09, 2024 10:16am GBS (group B streptococcus) UTI complica ting September 16, 2024 10:40am History of anxiety September 16, 2024 10:4 0am History of recurrent UTI (urinary tract infection) September 16, 2024 10:40am September 16, 2024 10:4 0am Supervision of high-risk September 16, 2024 10:40am Uterine size date discrepancy September 16, 2024 10:40am GBS (group B streptococcus) UTI complica ting September 20, 2024 3:28pm History of anxiety September 20, 2024 3:28 pm History of recurrent UTI (urinary tract infection) September 20, 2024 3:28pm September 20, 2024 3:28 pm Supervision of high-risk September 20, 2024 3:28pm Uterine size date discrepancy September 20, 2024 3:28pm Vaginal discharge during September 20, 2024 3:28pm Chief Complaint Admit Date 24 WK OB June 14, 2024 11: 38am 28 WK OB/GLUCOSE July 13, 2024 8:31a m 30 WK OB July 29, 2024 2:00p m 32wk ob August 12, 2024 10:3 4am 34wk ob August 23, 2024 9:24 am 36wk ob September 09, 2024 10:1 6am LARGE FOR GESTATIONAL AGE September 13 4:23pm 37 WK OB September 16, 2024 10:4 0am R/O SROM September 20, 2024 3:28 pm R/O SROM September 20, 2024 4:26 pm 38 WK OB September 23, 2024 10:3 9am Reason for Visit Admit Date History of anxiety June 14, 2024 11: 38am History of recurrent UTI (urinary tract infection) June 14, 2024 11:38am June 14, 2024 11: 38am Supervision of high-risk June 14, 2024 11:38am History of anxiety July 13, 2024 8:31a m History of recurrent UTI (urinary tract infection) July 13, 2024 8:31am July 13, 2024 8:31a m Supervision of high-risk July 012024 8:31am History of anxiety July 29, 2024 2:00p m History of recurrent UTI (urinary tract infection) July 29, 2024 2:00pm July 29, 2024 2:00p m Supervision of high-risk July 022024 2:00pm History of anxiety August 12, 2024 10:3 4am History of recurrent UTI (urinary tract infection) August 12, 2024 10:34am August 12, 2024 10:3 4am Supervision of high-risk August 12, 2024 10:34am History of anxiety August 23, 2024 9:24 am History of recurrent UTI (urinary tract infection) August 23, 2024 9:24am August 23, 2024 9:24 am Supervision of high-risk August 23, 2024 9:24am History of anxiety September 09, 2024 10:1 6am History of recurrent UTI (urinary tract infection) September 09, 2024 10:16am September 09, 2024 10:1 6am Supervision of high-risk September 09, 2024 10:16am GBS (group B streptococcus) UTI complica ting September 16, 2024 10:40am History of anxiety September 16, 2024 10:4 0am History of recurrent UTI (urinary tract infection) September 16, 2024 10:40am September 16, 2024 10:4 0am Supervision of high-risk September 16, 2024 10:40am Uterine size date discrepancy September 16, 2024 10:40am GBS (group B streptococcus) UTI complica ting September 20, 2024 3:28pm History of anxiety September 20, 2024 3:28 pm History of recurrent UTI (urinary tract infection) September 20, 2024 3:28pm September 20, 2024 3:28 pm Supervision of high-risk September 20, 2024 3:28pm Uterine size date discrepancy September 20, 2024 3:28pm Vaginal discharge during September 20, 2024 3:28pm GBS (group B streptococcus) UTI complica ting September 23, 2024 10:39am History of anxiety September 23, 2024 10:3 9am History of recurrent UTI (urinary tract infection) September 23, 2024 10:39am September 23, 2024 10:3 9am Supervision of high-risk September 23, 2024 10:39am Uterine size date discrepancy September 23, 2024 10:39am Vaginal discharge during September 23, 2024 10:39am Additional Source Comments Mitch Ravi MD - 01/22/2017 10:07 PM EST H&P Notes (unrecognized sect ion and content) Formatting of this note may be different from the original. Mitch Ravi MD [facility] Hospitalists History and Physical Patient Name:Akosua Kumari MR #:[id number] :1995 Admit Date: [id number] Physicians: Qamar Montana MD (Family); No ref. provider found (Referring) Perpetual Assessment: Akosua Kumari is a 22 y.o. female who presented from home on 01/22/2017 with Left Facial swelling ASSESSMENT AND PLAN Nasal abscess and cellulitis, left facial swelling Presented with left facial swelling and purulent discharge from left nare WBC 11, afebrile, saturating well on room air ENT recommended IV vancomycin, will see patient in a.m. IV vancomycin,prn motrin for pain/fever. Hold doxycycline for now Monitor for worsening. DVT Prophylaxis Not Indicated, Patient Ambulating Medication Reconciliation Reviewed Comments/Disposition: jonathan HISTORY CC: Left Facial swelling HPI: Akosua Kumari is a 22 y.o. female with no significant past medical history presented to the ER complaining of facial swelling. Patient symptoms started about 3 days ago but a small pimple inside her left nare. Pupil was painful and after 2 days he developed a pointed edge, patient did squeeze did and he started to drain positive fluid. Today patient woke up with diffuse swelling of her face worse on the left side also involving her upper lips. Pain in the nare was also significant 10/10, localized nonradiating, no relieving factors. She went to the urgent care this this morning where oxytetracycline was prescribed for her which she had not started taking. In the ED she was found with swelling of her face and obvious abscess in her left nasal cavity, WBC was elevated at 11.14, ENT was consulted and they recommended IV antibiotics. ROS: > > > > > > > > > > The following system(s) were reviewed. Pertinent positive and negative findings are noted in the HPI. Const Eyes ENT Resp CV GI Neuro Musc Skin Psych Endo Allergy Heme/Lymph PMH/PSH/SH/FH: Past Medical History: Diagnosis Date Patient denies medical problems Past Surgical History: Procedure Laterality Date denies Family History Problem Relation Age of Onset GI problems Neg Hx Social History Social History Marital status: Single Spouse name: N/A Number of children: N/A Years of education: N/A Occupational History Not on file. Social History Main Topics Smoking status: Never Smoker Smokeless tobacco: Never Used Alcohol use No Drug use: No Sexual activity: Not on file Other Topics Concern Not on file Social History Narrative Lives independently Allergy Information: I have reviewed the patient's allergies. Augmentin [amoxicillin-pot clavulanate] Home Medications: Outpatient Prescriptions Marked as Taking for the 01/22/17 encounter (Hospital Encounter) Medication Sig doxycycline hyclate (VIBRAMYCIN) 100 MG capsule Take 100 mg by mouth 2 (two) times a day. PHYSICAL EXAMINATION > > > > > > > > Vital Signs: Temp: [98.6 ?F (37 ?C)-98.9 ?F (37.2 ?C)] 98.6 ?F (37 ?C) Heart Rate: [89-115] 94 Resp: [16] 16 BP: (117-154)/(80-94) 117/80 GENERAL: NAD, facial puffiness noted EYES: Conjunctiva and sclera clear, EOMI, PERRL ENT: Hearing intact. Pharynx clear, obvious swelling in the anterior portion of the left nare, tender to touch, firm, erythema noted. NECK: No adenopathy or thyromegaly CV: RRR, no murmur. No JVD. No edema RESP: Clear, no rales, rhonchi, wheezes or increase in respiratory effort, no use of accessory muscles GI: Non-distended, +BS, soft, non-tender. No guarding, masses or rebound MUSC: Normal ROM without deformity SKIN: Warm and dry. No rashes. NEURO: Alert, Ox3. Grossly normal motor and sensory exam. No focal deficits PSYCH: Mood and affect are appropriate. Cooperative. Laboratory and Additional Data Acquired or Reviewed: Laboratory Transcriptions Radiology Microbiology Cardiology Outside Records Medications Family : Sister at bedside Details above. Time Spent: in this encounter Tyrell Hernandez MD - 01/23/2017 10:56 AM EST Consult Notes (unrecognized section and content) Associated Order(s): IP CONSULT TO ENT Formatting of this note may be different from the original. ENT CONSULT NOTE Patient Name: Akosua Kumari Admit Date: [id number] MR #: [id number] : 1995 Physicians: Qamar Montana MD (Family); No ref. provider found (Referring) Chief Complaint/Reason for Visit: Nasal abscess History of Present Illness: Akosua Kumari is a 22 y.o. y/o female presenting With a 3-day history of increasing swelling around the left side of her lip. There was no history of local trauma. This has become increasingly more painful, and she has had some fevers with this. She has not had any antibiotic therapy. She notes no local trauma. She has not previously had this problem before. She is allergic to Augmentin, but has no other significant past history. History: Past Medical History: Diagnosis Date Patient denies medical problems Past Surgical History: Procedure Laterality Date denies Family History Problem Relation Age of Onset GI problems Neg Hx Social History Social History Marital status: Single Spouse name: N/A Number of children: N/A Years of education: N/A Occupational History Not on file. Social History Main Topics Smoking status: Never Smoker Smokeless tobacco: Never Used Alcohol use No Drug use: No Sexual activity: Not on file Other Topics Concern Not on file Social History Narrative Lives independently Allergy Information: I have reviewed the patient's allergies. Augmentin [amoxicillin-pot clavulanate] Home Medications: No current outpatient prescriptions on file as of 01/22/2017. Review of Systems: 12 system review of systems is negative other than that noted above. Physical Examination: Vital Signs: BP (!) 95/58 (BP Location: Left arm, Patient Position: Lying) Pulse 76 Temp 98.8 ?F (37.1 ?C) (Oral) Resp 14 Ht 5' 5 Wt 57.2 kg (126 lb) SpO2 97% BMI 20.97 kg/m2 General Appearance: Alert, cooperative, no distress, no stertor, stridor, or dyspnea, appears stated age. Swollen around left upper lip with erythrema Head: Normocephalic, without obvious abnormality, atraumatic Eyes: PERRL, EOM's intact Ears: Normal external ears bilaterally, normal hearing Nose: Nares normal, mucosa normal, no drainage, septum midline with fluctuant left vestibular abscess Oral Cavity: Lips without damage. Tongue with normal protrusion. No gross mucosal lesions seen. FOM soft. Lowell's and Stensen's ducts functional. Tonsils symmetrical with no exudates. Uvula midline. Sleep Mallampati Grade 1 Neck: Trachea midline, no lymphadenopathy, thyroid normal. Salivary glands normal. Lungs: Respirations unlabored Heart: Pulse regular Extremities: Normal movement of extremities bilaterally Skin: Skin color, texture, turgor normal, no rashes or lesions Lymph nodes: non-palpable Neurologic: CNII-XII grossly intact Laboratory and Additional Data Reviewed: Laboratory 01/23/17 10:58 AM Lab Results Component Value Date WBC 11.14 (H) 01/22/2017 HGB 13.8 01/22/2017 HCT 41.5 01/22/2017 MCV 94.1 01/22/2017 PLT 275 01/22/2017 Assessment and Plan: Akosua Kumari is a 22 y.o. y/o female presenting with nasal abscess, drained with patients permission at bedside, 1ml of pus released. Assessment & plan notes cannot be loaded without a specified hospital service. My recommendation and plan is: 1. Drained under local anesthetic. 2. Start Bactrim. 3. Percocet for pain control. 4. Can be discharged, has card for outpatient follow up. Assessment Detail: The total time spent for this visit was 25 minutes. Greater than 50% of the time was spent in counseling and coordination of care regarding E and M. VICKIE Rodriguez. [facility] Otolaryngology, Head and Neck Surgery [facility] Office Number: [phone] in this encounter Mara Note - Sudheer Sheikh RN - 01/23/2017 11:41 AM SIMEON Notes - Ketty Newman RN - 01/22/2017 7:49 PM RICKYD Notes - AraizaZeinabn, PSA - 01/22/2017 7:11 PM EST Miscellaneous Notes (unrecog nized section and content) Went over discharge papers with pt. Pt verbalizes understanding. Paper prescription given. wheelchair assistance declined. Patient requesting pain medications, communicated with Dr Ness. DR TANVIR HERNANDEZ (ENT) WAS CALLED FOR DR NESS Formatting of this note may be different from the original. ED PROVIDER NOTE [facility] EMERGENCY DEPARTMENT NAME: Akosua Kumari AGE: 22 y.o. : 1995 VISIT DATE: 01/22/2017 CSN: [id number] PCP: Qamar Montana MD Chief Complaint Patient presents with Facial Swelling HPI Comments: 22-year-old female presents with facial swelling. Patient states that she noticed a pimple on the inside of her left nare 3 days ago. Has gradually gotten worse. Started spontaneously draining yesterday. Today woke up and left side of her face was markedly swollen. Her upper lip was swollen. Her left upper and lower lids were swollen. States that the swelling is gotten better throughout the day. There is a palpable firm area just inferior to the nasolabial angle. Fullness extends onto the cheek. Right now there is no fullness of the lids or lip. Patient is a 22 y.o. female presenting with abscess. History provided by: Patient full time staff interpreter used: No Abscess Location: Face Facial abscess location: Nose Chronicity: New Duration: 3 days Abscess quality: draining, fluctuance, induration, painful and redness Abscess quality: no itching Red streaking: no Progression: Worsening Pain details: Duration: 3 days Quality: Throbbing Severity: Moderate Timing: Constant Progression: Worsening Context: not diabetes, not immunosuppression, not injected drug use, not insect bite/sting and not skin injury Relieved by: Nothing Exacerbated by: palpation. Ineffective treatments: started Doxy today, only 1 dose in. Associated symptoms: no fever, no headaches, no nausea and no vomiting Past Medical History: Diagnosis Date Patient denies medical problems Past Surgical History: Procedure Laterality Date denies Family History Problem Relation Age of Onset GI problems Neg Hx Social History Social History Marital status: Single Spouse name: N/A Number of children: N/A Years of education: N/A Occupational History Not on file. Social History Main Topics Smoking status: Never Smoker Smokeless tobacco: Never Used Alcohol use No Drug use: No Sexual activity: Not on file Other Topics Concern Not on file Social History Narrative Lives independently Previous Medications DICYCLOMINE (BENTYL) 10 MG CAPSULE Take 10 mg by mouth 4 (four) times a day before meals and nightly. HYOSCYAMINE (LEVSIN) 0.125 MG TABLET Take 0.125 mg by mouth every 4 (four) hours as needed for cramping. ONDANSETRON (ZOFRAN-ODT) 4 MG DISINTEGRATING TABLET Dissolve 4 mg on top of tongue every 8 (eight) hours as needed for nausea. Allergies Allergen Reactions Augmentin [Amoxicillin-Pot Clavulanate] Rash Review of Systems Constitutional: Negative for chills and fever. HENT: Negative for congestion, rhinorrhea and sore throat. Eyes: Negative for redness. Respiratory: Negative for cough and shortness of breath. Cardiovascular: Negative for chest pain. Gastrointestinal: Negative for abdominal pain, constipation, diarrhea, nausea and vomiting. Endocrine: Negative for polyuria. Genitourinary: Negative for dysuria and hematuria. Musculoskeletal: Negative for back pain. Skin: Negative for rash. Neurological: Negative for headaches. Hematological: Does not bruise/bleed easily. All other systems reviewed and are negative. Positives and pertinent negatives as per HPI. All other systems were reviewed and are negative. Patient Vitals for the past 24 hrs: BP Temp Temp src Pulse Resp SpO2 Height Weight 01/22/17 1852 (!) 154/94 98.9 ?F (37.2 ?C) Oral (!) 115 16 98 % 5' 5 57.2 kg (126 lb) Physical Exam Constitutional: She is oriented to person, place, and time. She appears well-developed and well-nourished. HENT: Head: Normocephalic and atraumatic. Right Ear: External ear normal. Left Ear: External ear normal. Mouth/Throat: Oropharynx is clear and moist. Firmness and swelling just inferior and to the left of the philtrum. There is about 1 x 1 cm. Redness and swelling extends to the left involving the cheek for about 4 cm. The left and right nare are patent. Oropharynx clear. Eyes: Conjunctivae and EOM are normal. Pupils are equal, round, and reactive to light. Neck: Neck supple. Cardiovascular: Normal rate and intact distal pulses. Pulmonary/Chest: Effort normal. No respiratory distress. Musculoskeletal: Normal range of motion. Lymphadenopathy: She has no cervical adenopathy. Neurological: She is alert and oriented to person, place, and time. Skin: Skin is warm and dry. Capillary refill takes less than 3 seconds. Psychiatric: She has a normal mood and affect. Her behavior is normal. Nursing note and vitals reviewed. Laboratory & Radiographic Imaging (if done): No results found for this visit on 01/22/17. No orders to display Procedures MDM ED Course Discussed with Dr. Rashaad Hernandez of otolaryngology. He recommended the patient be admitted and receive IV antibiotics. He recommended vancomycin. He will see the patient tomorrow morning performed incision and drainage. Discussed this with the patient, she is agreeable. I counseled her to quit smoking. She will be placed in observation. Message left for the JONATHAN. Clinical Impression: No diagnosis found. Follow-up Information Follow-up information has not been specified. New Prescriptions No medications on file (Please note that portions of this note may have been completed with a voice recognition software. Efforts were made to correct any errors, but occasionally words are mis-transcribed.) Gavin Ness MD 01/22/171918 Patient ambulates into triage. Patient reports, I think I have an infection in my nose and it is making the left side of my face swelling. Patient with swelling to left side of face from eyes to lips. Patient with regular and unlabored respirations. Patient able to speak in complete sentences. Patient maintaining oral secretions.in this encounter INFORMATION SOURCE (unrecogn ized section and content) DATE CREATED AUTHOR 08/26/2017 [facility] DATE CREATED AUTHOR AUTHOR'S ORGANIZ ATION 02/22/2018 [facility] DATE CREATED AUTHOR AUTHOR'S ORGANIZ ATION 10/31/[address] [facility] DATE CREATED AUTHOR AUTHOR'S ORGANIZ ATION 04/19/2023 [facility] DATE CREATED AUTHOR AUTHOR'S ORGANIZ ATION 02/23/2024 [facility] DATE CREATED AUTHOR AUTHOR'S ORGANIZ ATION 03/05/2024 [facility] DATE CREATED AUTHOR AUTHOR'S ORGANIZ ATION 05/08/2024 [facility] DATE CREATED AUTHOR AUTHOR'S ORGANIZ ATION 09/20/2024 [facility] DATE CREATED AUTHOR AUTHOR'S ORGANIZ ATION 09/23/2024 [facility] Reason for Visit (unrecogniz ed section and content) Reason Comments [facility]32[facility].. FRANCOISE 12-09-20 set by LMP. Reason Comments Initial Visit 33w3d today. Reason Comments Establish Care Anxiety Depression Reason Comments Anxiety Lab Review Reason Comments Urinary Tract Infection Hx of uti, painf ul, pt states 'kidneys are cramping', started Friday morning, kidney pain started yesterday, been using azo Reason Comments Anxiety Reason Comments Cystoscopy Specialty Diagnoses / Procedures Referred By Dain montenegro Referred To Contact Diagnoses Left flank pain Procedures CT ABDOMEN/PELVIS WITHOUT CONTRAST CHG CT SCAN,ABDOMENT AND PELVIS,W/O CONTRAST aJimie Quintana, MINERAL INDUSTRY TEACHER-LINEMAN A CLASS [address] [facility] [address] [id number] Referral ID Status Reason Start Date Expiration Date Visits Re quested Visits Authorized [id number] Closed 03/28/2023 04/21/2024 1 1 Reason Comments Mole abdomen Specialty Diagnoses / Procedures Referred By Dain montenegro Referred To Contact Diagnoses Palpitations Procedures ECHOCARDIOGRAM AR ECHO TTHRC R-T 2D W/WOM-MODE COMPL SPEC&COLR D Anil Oneal, [address] [facility] [address] [place] [address] [facility] Referral ID Status Reason Start Date Expiration Date Visits Re quested Visits Authorized [id number] Closed 02/20/2024 03/16/2025 1 1 Reason Comments Sore Throat Patient states that she is 10 weeks . She states that for 2 days she has felt nauseated, but has not thrown up. She said that she had bodyache, chills, and a headache. Patient woke up this morning, and her lymph nodes feel swollen and her throat is sore. Care Teams (unrecognized sec tion and content) Box Truck Owner Operator Relationship Specialty Start Date End Date Corinna Jackson, MINERAL INDUSTRY TEACHER-LINEMAN A CLASS [address] [place] [address], [place] [phone] PCP - General Certified Nurse Practitioner 09/28/21 Box Truck Owner Operator Relationship Specialty Start Date End Date Corinna Jackson APRN-ALXEANDER [address] [place] [address], [place] [phone] PCP - General Certified Nurse Practitioner 09/28/21 Box Truck Owner Operator Relationship Specialty Start Date End Date Qamar Montana MD PCP - General Pediatrics 05/02/16 Box Truck Owner Operator Relationship Specialty Start Date End Date Corinna Jackson APRN-LINEMAN A CLASS [address] [place] [phone] PCP - General Certified Nurse Practitioner 09/28/21 Box Truck Owner Operator Relationship Specialty Start Date End Date Corinna Jackson APRN-LINEMAN A CLASS [address] [place] [phone] PCP - General Certified Nurse Practitioner 09/28/21 Box Truck Owner Operator Relationship Specialty Start Date End Date Corinna Jackson APRN-LINEMAN A CLASS [address] [place] [phone] PCP - General Certified Nurse Practitioner 09/28/21 Box Truck Owner Operator Relationship Specialty Start Date End Date Corinna Jackson MINERAL INDUSTRY TEACHER-LINEMAN A CLASS [address] [place] [phone] PCP - General Certified Nurse Practitioner 09/28/21 Box Truck Owner Operator Relationship Specialty Start Date End Date Anil Oneal DO [address] [place] [id number] PCP - General Family Medicine 02/20/24 Box Truck Owner Operator Relationship Specialty Start Date End Date Corinna Jackson APRN-CNP [address] [place] [phone] PCP - General Certified Nurse Practitioner 09/28/21 Box Truck Owner Operator Relationship Specialty Start Date End Date Corinna Jackson APRN-ALEXANDER [address] [place] [phone] PCP - General Certified Nurse Practitioner 09/28/21 Team Status: Active Member Role Status Dates ANIL ONEAL DO Primary Care Provider Active Team Status: Inactive Member Role Status Dates ANIL ONEAL DO Primary Care Provider Active Start: March 19, 2024 End: March 19, 2024 ANIL OENAL DO Referring Provider Active Sta rt: March 19, 2024 End: March 19, 2024 Dr. Mary Lundberg DO Attending Provider Activ e Start: March 19, 2024 End: March 19, 2024 Team Status: Inactive Member Role Status Dates ANIL ONEAL DO Primary Care Provider Active Start: March 19, 2024 End: March 19, 2024 Zo Dyer CNM Attending Provider Active S tart: March 19, 2024 End: March 19, 2024 Zo Dyer CNM Referring Provider Active S tart: March 19, 2024 End: March 19, 2024 Team Status: Inactive Member Role Status Dates ANIL ONEAL DO Primary Care Provider Active Start: April 14, 2024 End: April 14, 2024 ANIL ONEAL DO Referring Provider Active Sta rt: April 14, 2024 End: April 14, 2024 Dr. Rachele Hummel MD Attending Provider Active Start: April 14, 2024 End: April 14, 2024 Team Status: Inactive Member Role Status Dates ANIL ONEAL DO Primary Care Provider Active Start: May 17, 2024 End: May 17, 2024 ANIL ONEAL DO Referring Provider Active Sta rt: May 17, 2024 End: May 17, 2024 Zo Dyer CNM Attending Provider Active S tart: May 17, 2024 End: May 17, 2024 Team Status: Inactive Member Role Status Dates ANIL ONEAL DO Primary Care Provider Active Start: June 14, 2024 End: June 14, 2024 ANIL ONEAL DO Referring Provider Active Sta rt: June 14, 2024 End: June 14, 2024 Dr. Mary Lundberg , Attending Provider Activ e Start: June 14, 2024 End: June 14, 2024 Team Status: Inactive Member Role Status Dates ANIL ONEAL DO Primary Care Provider Active Start: July 13, 2024 End: July 13, 2024 ANIL ONEAL DO Referring Provider Active Sta rt: July 13, 2024 End: July 13, 2024 Anila Weir METALSMITH APPRENTICE, METALSMITH APPRENTICE-C Attending Provider Active Start: July 13, 2024 End: July 13, 2024 Team Status: Active Member Role Status Dates ANIL ONEAL DO Primary Care Provider Active Start: July 13, 2024 Anila Weir METALSMITH APPRENTICE, METALSMITH APPRENTICE-C Attending Provider Active Start: July 13, 2024 Anila Weir METALSMITH APPRENTICE, METALSMITH APPRENTICE-C Referring Provider Active Start: July 13, 2024 Team Status: Inactive Member Role Status Dates ANIL ONEAL DO Primary Care Provider Active Start: July 13, 2024 End: July 13, 2024 Anila Cardenass METALSMITH APPRENTICE, METALSMITH APPRENTICE-C Attending Provider Active Start: July 13, 2024 End: July 13, 2024 Anila Cardenass METALSMITH APPRENTICE, METALSMITH APPRENTICE-C Referring Provider Active Start: July 13, 2024 End: July 13, 2024 Team Status: Inactive Member Role Status Dates ANIL ONEAL DO Primary Care Provider Active Start: July 29, 2024 End: July 29, 2024 ANIL ONEAL DO Referring Provider Active Sta rt: July 29, 2024 End: July 29, 2024 Zo Dyer CNM Attending Provider Active S tart: July 29, 2024 End: July 29, 2024 Team Status: Inactive Member Role Status Dates ANIL ONEAL , DO Primary Care Provider Active Start: August 12, 2024 End: August 12, 2024 ANIL HALE , DO Referring Provider Active Sta rt: August 12, 2024 End: August 12, 2024 Zo Dyer CNM Attending Provider Active S tart: August 12, 2024 End: August 12, 2024 Team Status: Inactive Member Role Status Dates ANILNIKOLE ONEAL , DO Primary Care Provider Active Start: August 23, 2024 End: August 23, 2024 ANIL ONEAL , DO Referring Provider Active Sta rt: August 23, 2024 End: August 23, 2024 Dr. Mary Lundberg , DO Attending Provider Activ e Start: August 23, 2024 End: August 23, 2024 Team Status: Active Member Role/Relationship Status Dates ANIL ONEAL , DO Primary Care Provider Active Team Status: Inactive Member Role/Relationship Status Dates ANIL ONEAL , DO Primary Care Provider Active Start: May 17, 2024 End: May 17, 2024 ANIL HALE , DO Referring Provider Active Sta rt: May 17, 2024 End: May 17, 2024 Zo Dyer CNM Attending Provider Active S tart: May 17, 2024 End: May 17, 2024 Team Status: Inactive Member Role/Relationship Status Dates ANILNIKOLE ONEAL DO Primary Care Provider Active Start: June 14, 2024 End: June 14, 2024 ANIL ONEAL , DO Referring Provider Active Sta rt: June 14, 2024 End: June 14, 2024 Dr. Mary Lundberg , Attending Provider Activ e Start: June 14, 2024 End: June 14, 2024 Team Status: Inactive Member Role/Relationship Status Dates ANILNIKOLE ONEAL DO Primary Care Provider Active Start: July 13, 2024 End: July 13, 2024 ANIL ONEAL , DO Referring Provider Active Sta rt: July 13, 2024 End: July 13, 2024 Anila Weir METALSMITH APPRENTICE, METALSMITH APPRENTICE-C Attending Provider Active Start: July 13, 2024 End: July 13, 2024 Team Status: Inactive Member Role/Relationship Status Dates ANIL ONEAL , DO Primary Care Provider Active Start: July 13, 2024 End: July 13, 2024 Anlia Weir METALSMITH APPRENTICE, METALSMITH APPRENTICE-C Attending Provider Active Start: July 13, 2024 End: July 13, 2024 Anila Weir METALSMITH APPRENTICE, METALSMITH APPRENTICE-C Referring Provider Active Start: July 13, 2024 End: July 13, 2024 Team Status: Inactive Member Role/Relationship Status Dates ANIL ONEAL DO Primary Care Provider Active Start: July 29, 2024 End: July 29, 2024 ANIL ONEAL , DO Referring Provider Active Sta rt: July 29, 2024 End: July 29, 2024 Zo Dyer CNM Attending Provider Active S tart: July 29, 2024 End: July 29, 2024 Team Status: Inactive Member Role/Relationship Status Dates ANIL ONEAL DO Primary Care Provider Active Start: August 12, 2024 End: August 12, 2024 ANIL ONEAL DO Referring Provider Active Sta rt: August 12, 2024 End: August 12, 2024 Zo Dyer CNM Attending Provider Active S tart: August 12, 2024 End: August 12, 2024 Team Status: Inactive Member Role/Relationship Status Dates ANIL ONEAL DO Primary Care Provider Active Start: August 23, 2024 End: August 23, 2024 ANIL ONEAL DO Referring Provider Active Sta rt: August 23, 2024 End: August 23, 2024 Dr. Mary Lundberg , Attending Provider Activ e Start: August 23, 2024 End: August 23, 2024 Team Status: Inactive Member Role/Relationship Status Dates ANIL ONEAL DO Primary Care Provider Active Start: September 09, 2024 End: September 09, 2024 ANIL ONEAL DO Referring Provider Active Sta rt: September 09, 2024 End: September 09, 2024 Dr. Mary Lundberg DO Attending Provider Activ e Start: September 09, 2024 End: September 09, 2024 Team Status: Inactive Member Role/Relationship Status Dates ANIL ONEAL DO Primary Care Provider Active Start: September 09, 2024 End: September 09, 2024 Dr. Mary Lundberg DO Attending Provider Activ e Start: September 09, 2024 End: September 09, 2024 Team Status: Active Member Role/Relationship Status Dates ANIL ONEAL DO Primary Care Provider Active Start: September 13, 2024 Dr. Mary Lundberg , DO Attending Provider Activ e Start: September 13, 2024 Dr. Mary Lundberg , DO Referring Provider Activ e Start: September 13, 2024 Team Status: Inactive Member Role/Relationship Status Dates ANIL ONEAL DO Primary Care Provider Active Start: June 14, 2024 End: June 14, 2024 ANIL ONEAL , DO Referring Provider Active Sta rt: June 14, 2024 End: June 14, 2024 Dr. Mary Lundberg , DO Attending Provider Activ e Start: June 14, 2024 End: June 14, 2024 Team Status: Inactive Member Role/Relationship Status Dates ANIL ONEAL DO Primary Care Provider Active Start: July 13, 2024 End: July 13, 2024 ANIL ONEAL DO Referring Provider Active Sta rt: July 13, 2024 End: July 13, 2024 Anila Weir METALSMITH APPRENTICE, METALSMITH APPRENTICE-C Attending Provider Active Start: July 13, 2024 End: July 13, 2024 Team Status: Inactive Member Role/Relationship Status Dates ANIL ONEAL DO Primary Care Provider Active Start: July 13, 2024 End: July 13, 2024 Anila Weir METALSMITH APPRENTICE, METALSMITH APPRENTICE-C Attending Provider Active Start: July 13, 2024 End: July 13, 2024 Anila Weir METALSMITH APPRENTICE, METALSMITH APPRENTICE-C Referring Provider Active Start: July 13, 2024 End: July 13, 2024 Team Status: Inactive Member Role/Relationship Status Dates ANIL ONEAL DO Primary Care Provider Active Start: July 29, 2024 End: July 29, 2024 ANIL ONEAL DO Referring Provider Active Sta rt: July 29, 2024 End: July 29, 2024 Zo Dyer CNM Attending Provider Active S tart: July 29, 2024 End: July 29, 2024 Team Status: Inactive Member Role/Relationship Status Dates ANIL ONEAL DO Primary Care Provider Active Start: August 12, 2024 End: August 12, 2024 ANIL ONEAL DO Referring Provider Active Sta rt: August 12, 2024 End: August 12, 2024 Zo Dyer CNM Attending Provider Active S tart: August 12, 2024 End: August 12, 2024 Team Status: Inactive Member Role/Relationship Status Dates ANIL ONEAL , DO Primary Care Provider Active Start: August 23, 2024 End: August 23, 2024 ANIL ONEAL , DO Referring Provider Active Sta rt: August 23, 2024 End: August 23, 2024 Dr. Mary Lundberg , DO Attending Provider Activ e Start: August 23, 2024 End: August 23, 2024 Team Status: Inactive Member Role/Relationship Status Dates ANIL ONEAL , DO Primary Care Provider Active Start: September 09, 2024 End: September 09, 2024 ANIL ONEAL , DO Referring Provider Active Sta rt: September 09, 2024 End: September 09, 2024 Dr. Mary Lundberg , DO Attending Provider Activ e Start: September 09, 2024 End: September 09, 2024 Team Status: Inactive Member Role/Relationship Status Dates ANIL NOEAL , DO Primary Care Provider Active Start: September 09, 2024 End: September 09, 2024 Dr. Mary Lundberg , DO Attending Provider Activ e Start: September 09, 2024 End: September 09, 2024 Team Status: Active Member Role/Relationship Status Dates ANIL ONEAL , DO Primary Care Provider Active Start: September 13, 2024 Dr. Mary Lundberg , DO Attending Provider Activ e Start: September 13, 2024 Dr. Mary Lundberg , DO Referring Provider Activ e Start: September 13, 2024 Team Status: Inactive Member Role/Relationship Status Dates ANIL ONEAL , DO Primary Care Provider Active Start: September 16, 2024 End: September 16, 2024 ANIL ONEAL , DO Referring Provider Active Sta rt: September 16, 2024 End: September 16, 2024 Dr. Mary Lundberg , DO Attending Provider Activ e Start: September 16, 2024 End: September 16, 2024 Team Status: Inactive Member Role/Relationship Status Dates ANIL ONEAL , DO Primary Care Provider Active Start: September 13, 2024 End: September 13, 2024 Dr. Mary Lundberg , DO Attending Provider Activ e Start: September 13, 2024 End: September 13, 2024 Dr. Mary Lundberg , Referring Provider Activ e Start: September 13, 2024 End: September 13, 2024 Team Status: Inactive Member Role/Relationship Status Dates ANILNIKOLE ONEAL DO Primary Care Provider Active Start: September 20, 2024 End: September 20, 2024 Zo Dyer CNM Attending Provider Active S tart: September 20, 2024 End: September 20, 2024 Zo Dyer CNM Referring Provider Active S tart: September 20, 2024 End: September 20, 2024 Team Status: Active Member Role/Relationship Status Dates ANIL ONEAL DO Primary Care Provider Active Start: September 20, 2024 Zo Dyer CNM Attending Provider Active S tart: September 20, 2024 Zo Dyer CNM Referring Provider Active S tart: September 20, 2024 Zo Dyer CNM Other Provider Active Start : September 20, 2024 Team Status: Inactive Member Role/Relationship Status Dates ANIL HALE , Primary Care Provider Active Start: September 23, 2024 End: September 23, 2024 ANIL ONEAL DO Referring Provider Active Sta rt: September 23, 2024 End: September 23, 2024 Dr. Rachele Hummel MD Attending Provider Active Start: September 23, 2024 End: September 23, 2024 Goals (unrecognized section and content) Goals may be documented in a n alternate sectionGoals may be documented in an alternate sectionGoals may be documented in an alternate sectionGoals may be documented in an alternate sectionGoals may be documented in an alternate sectionGoals may be documented in an alternate sectionGoals may be documented in an alternate sectionGoals may be documented in an alternate sectionGoals may be documented in an alternate sectionGoals may be documented in an alternate sectionGoals may be documented in an alternate section FOR RECORDS PERTAINING TO PATIENTS WHO ARE OR HAVE BEEN ENROLLED IN A CHEMICAL DEPENDENCY/SUBSTANCEABUSE PROGRAM, SOME INFORMATION MAY BE OMITTED. This clinical summary was aggregated from multiple sources. Caution should be exercised in using it in the provision of clinical care. This summary normalizes information from multiple sources, and as a consequence, information in this document may materially change the coding, format and clinical context of patient data. In addition, data may be omitted in some cases. CLINICAL DECISIONS SHOULD BE BASED ON THE PRIMARY CLINICAL RECORDS. [facility] [employer] [facility]. provides no warranty or guarantee of the accuracy or completeness of information in this document.
[2024-09-24] MEDS: Penicillin G Pot 5,000,000 UNITS in 0.9% Normal Saline (100mL MB+) 100 ML 150 UNITS IV (02:11)
[2024-09-24] MEDS: Lactated Ringers 1,000 ML 50 ML IV (02:11)
[2024-09-24 02:22] LABS: Hematocrit 33.9 % (37-47); Hemoglobin 11.0 g/dL (12.0-15.0); Immature Granulocytes Count 0.150 X10^3/uL (0.0-0.0); Mean Corp Hgb Conc 32.4 g/dL (32-36); Mean Corpuscular Volume 86.0 fL (81-99); Mean Platelet Vol. 10.9 fl (6.2-12.0); NRBC Flagged by Analyzer 0 % (0-5); Platelet Count 251 K/mm3 (150-450); RBC Distribution Width CV 13.8 % (11.6-14.6); RBC Distribution Width SD 42.8 fl (35.1-43.9); Red Blood Count 3.94 M/mm3 (4.2-5.4); White Blood Count 17.7 K/mm3 (4.4-11.0)
[2024-09-24 02:42] LABS: Syphilis Antibodies Nonreactive (Nonreactive)
[2024-09-24] MEDS: fentaNYL-bupivacaine (epidural) 100 ML BAG EPIDURAL (05:41)
[2024-09-24] MEDS: Lactated Ringers 1,000 ML 200 ML IV (06:05)
[2024-09-24] MEDS: Penicillin G 3,000,000 Units 50 ML 100 UNITS IV (06:28)
[2024-09-24] MEDS: Oxytocin 15 Units/NS 250ml 15 UNITS/250 ML IV.SOLN 334 UNITS IV (07:09)
[2024-09-24] MEDS: Oxytocin 15 Units/NS 250ml 15 UNITS/250 ML IV.SOLN 83 UNITS IV (07:41)
--- NOTE | 2024-09-24 08:06 | HP.PCM.OB_ITS ---
HPI - General General Date of Admission: 09/24/24 HPI Narrative SERVANDO NUNEZ, is a 29 F 40 who presents IAL regular ctx Maternal Data Information PANKAJ Calculator Estimated Delivery Date Method Current WG Current Estimate 10/01/24 LMP (Certain) 39w 0d PFSH PFSH Home Medications ?Medication ?Instructions ?Recorded ?Last Taken ?Type PNV 153-FA 400 mcg-om3 35 mg-dha tab PO 12/0 08/2409/23/24 History 25 mg-epa 5 mg-fish oil chew tablet breast pump #1 ea 05/24/24 Unknown Rx Allergy/AdvReac Type Severity Reaction Status Date / Time No Known Allergies Allergy Verified 09/24/24 01:42 Family History Grandfather Cancer Maternal- unsure what kind Heart disease Pacemaker- Maternal Mother Mitral valve disease Grandmother Mitral valve disease Maternal Surgical History H/O cystoscopy H/O breast augmentation Social History adopted: No household members: spouse and children number of children: 2 current occupational status: employed 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 current occupational exposures/hazards: No pets and animals: Yes pets and animals: dog(s) history of recent travel: No sexually active: Yes Smoking Status: Never smoker alcohol intake: never substance use type: does not use well-balanced diet: daily or most days caffeine: Yes Type: coffee Number of servings: 1 eating out: rarely or never during the past year weight has: remained stable what type of physical activity do you participate in: none kvng/latter day: Anabaptist seatbelt use: always do you feel safe at home: Yes 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 Date Name GA/Weeks Outcome Route Bth Weight Infant Gen Labor Lgth Anesthesia Del Locatn Provider FOB 01/06/18 Melanie 40 live - full term 6#13oz Female none [facility] Dr. Edwina Maldonado 11/29/20 Sameer 38 live - full term 6#10oz Male epidural [facility] in [place] Dr. Devante Maldonado Visit Details Expected Delivery Route/Plan Labor Preferences- CB/BF classes: no labor support person: Joel labor intervention preferences: [] pain management options preferred: limited cut cord/dad catch: yes : yes PP control planned: discussed discussed possible routes of delivery and associated risks: [] special requests: [] Plans Covid status: [] Flu vaccine: [] Tdap vaccine: given Rhogam: NA LARC form signed: Yes Problem list reviewed and updated with the most current plan of care details and appropriate orders placed. Relevant counseling for the gestational age provided. Continue routine care and follow up unless otherwise noted in visit notes/problem list details OB Flowsheet Initial Weight: 131 lb Date -?-?-?-?-?-?-?-?-?-?-?-?- EGA Weight BP Urine Prot -?-?-?-?-?-?-?-?-?-?-?-?- Glucose FHR FuHt Pres Dilation -?-?-?-?-?-?-?-?-?-?-?-?- Effaced St Visit Note 02/19/24 -?-?-?-?-?-?-?-?-?-?-?-?- 7w 6d 131 lb (+0 oz) 83/63 -?-?-?-?-?-?-?-?-?-?-?-?- 161 -?-?-?-?-?-?-?-?-?-?-?-?- KW- CRL cons wit h dates. small MAMADOU noted. desires NIPT. 03/19/24 -?-?-?-?-?-?-?-?-?-?-?-?- 12w 0d 135 lb (+4 lb) 121/75 Negative -?-?-?-?-?-?-?-?-?-?-?-?- Negative 163 -?-?-?-?-?-?-?-?-?-?-?-?- JV- CRL still co nsistent with LMP. plans to do NIPT today. does not want to know gender. 04/14/24 -?-?-?-?-?-?-?-?-?-?-?-?- 15w 5d 136 lb 8 oz (+5 lb 8 oz) 115/76 Negative -?-?-?-?-?-?-?-?-?-?-?-?- Negative 145 -?-?-?-?-?-?-?-?-?-?-?-?- SM- no vb crampi ng 05/17/24 -?-?-?-?-?-?-?-?-?-?-?-?- 20w 3d 140 lb 2 oz (+9 lb 2 oz) 112/74 Negative -?-?-?-?-?-?-?-?-?-?-?-?- Negative 150 -?-?-?-?-?-?-?-?-?-?-?-?- KW- no vb/crampi ng. good fm. anatomy US reviewed. 06/14/24 -?-?-?-?-?-?-?-?-?-?-?-?- 24w 3d 147 lb 2 oz (+16 lb 2 oz) 113/74 -?-?-?-?-?-?-?-?-?-?-?-?- 145 24 -?-?-?-?-?-?-?-?-?-?-?-?- JV- no lof, vagi nal bleeding, or dec fm. does has some vision changes, especially at night. Recommend eye exam . tdap and gct next visit. 07/13/24 -?-?-?-?-?-?-?-?-?-?-?-?- 28w 4d 155 lb 6 oz (+24 lb 6 oz) 112/64 Negative -?-?-?-?-?-?-?-?-?-?-?-?- Negative 166 28 -?-?-?-?-?-?-?-?-?-?-?-?- MH-No VB, lof. G ood Fm. Larc, tdap. 28 wk labs pending 07/29/24 -?-?-?-?-?-?-?-?-?-?-?-?- 30w 6d 158 lb 2 oz (+27 lb 2 oz) 110/70 Negative -?-?-?-?-?-?-?-?-?-?--?-?- Negative 145 30 -?-?-?-?-?-?-?-?-?-?-?-?- KW- no vb/lof/cr amping. good fm. no concerns today. 08/12/24 -?-?-?-?-?-?-?-?-?-?-?-?- 32w 6d 157 lb 6 oz (+26 lb 6 oz) 109/74 -?-?-?-?-?-?-?-?-?-?-?-?- 150 32 -?-?-?-?-?-?-?-?-?-?-?-?- KW- no vb/lof/ct x. good fm. Will bring in FMLA papers next visit. 08/23/24 -?-?-?-?-?-?-?-?-?-?-?-?- 34w 3d 161 lb 2 oz (+30 lb 2 oz) 117/77 Negative -?-?-?-?--?-?-?-?-?-?-?-?- Negative 163 33 -?-?-?-?-?-?-?-?-?-?-?-?- JV- no lof, vagi nal bleeding, or dec fm. 09/09/24 -?-?-?-?-?-?-?-?-?-?-?-?- 36w 6d 162 lb (+31 lb) 118/81 Negative -?-?-?-?-?-?-?-?-?-?-?-?- Negative 160 38.5 Cephalic 1 -?-?-?-?-?-?-?-?-?-?-?-?- 50 -2 JV- biomet refugio us ordered for LGA on exam today. no complaints. GBS collected. 09/16/24 -?-?-?-?-?-?-?-?-?-?-?-?- 37w 6d 161 lb 2 oz (+30 lb 2 oz) 128/80 Negative -?-?-?-?-?-?-?-?-?-?-?-?- Negative 160 37.5 Cephalic 1 -?-?-?-?-?-?-?-?-?-?-?-?- 50 -2 JV- normal growth , gbs pos. patient wants a 39 week IOL. 09/23/24 -?-?-?-?-?-?-?-?-?-?-?-?- 38w 6d 161 lb 8 oz (+30 lb 8 oz) 130/79 Negative -?-?-?-?-?-?-?-?-?-?-?-?- Negative 145 38 Cephalic 2 .5 -?-?-?-?-?-?-?-?-?-?-?-?- 50 -2 SM- no vb lof irregular ctx membranes swept NST FHR Rate Baby A Baseline: 160 Variability:: Moderate Accelerations:: 15 x 15 Decelerations:: None NST Reactive:: Yes FHR Category:: Category I Uterine Activity:: q3-5 ROS Constitutional Constitutional: Reports systems reviewed and no addt'l complaints, except as documented ENT HEENT: Reports systems reviewed and no addt'l complaints, except as documented Cardiovascular Cardiovascular: Reports systems reviewed and no addt'l complaints, except as documented Respiratory/Chest Respiratory/Chest: Reports systems reviewed and no addt'l complaints, except as documented Gastrointestinal Gastrointestinal: Reports systems reviewed and no addt'l complaints, except as documented and nausea; Denies abdominal pain Genitourinary Genitourinary: Reports systems reviewed and no addt'l complaints, except as documented, contractions Details: present and frequency (regular ) and movement Details: present Musculoskeletal Musculoskeletal: Reports systems reviewed and no addt'l complaints, except as documented Integumentary Integumentary: Reports as per HPI Neurologic Neurologic: Reports systems reviewed and no addt'l complaints, except as documented Endocrine Endocrinology: Reports systems reviewed and no addt'l complaints, except as documented Vital Signs Vital Signs Vital Signs: 09/24/24 01:38 09/24/24 01:38 09/24/24 01:38 Temperature 97.6 F L Temperature Source Temporal Pulse Rate Respiratory Rate 18 Blood Pressure BP Systolic BP Diastolic Pulse Ox 09/24/24 01:38 09/24/24 01:38 09/24/24 01:38 Temperature 97.6 F L Temperature Source Temporal Pulse Rate Respiratory Rate 18 Blood Pressure BP Systolic BP Diastolic Pulse Ox 09/24/24 02:19 09/24/24 02:19 09/24/24 05:12 Temperature Temperature Source Pulse Rate 115 H Respiratory Rate Blood Pressure 114/66 105/64 BP Systolic 114 105 BP Diastolic 66 64 Pulse Ox 09/24/24 05:12 09/24/24 05:29 09/24/24 05:29 Temperature Temperature Source Pulse Rate 136 H 139 H Respiratory Rate Blood Pressure 127/79 H BP Systolic 127 BP Diastolic 79 Pulse Ox 09/24/24 05:32 09/24/24 05:32 09/24/24 05:34 Temperature Temperature Source Pulse Rate 133 H 134 H Respiratory Rate Blood Pressure 135/81 H BP Systolic 135 BP Diastolic 81 Pulse Ox 09/24/24 05:34 09/24/24 05:37 09/24/24 05:37 Temperature Temperature Source Pulse Rate 66 Respiratory Rate Blood Pressure 139/67 H BP Systolic 139 BP Diastolic 67 Pulse Ox 99 09/24/24 05:40 09/24/24 05:42 09/24/24 05:42 Temperature Temperature Source Pulse Rate 134 H Respiratory Rate 20 H Blood Pressure 112/65 BP Systolic 112 BP Diastolic 65 Pulse Ox 09/24/24 05:44 09/24/24 05:44 09/24/24 05:45 Temperature Temperature Source Pulse Rate 132 H Respiratory Rate 18 Blood Pressure BP Systolic BP Diastolic Pulse Ox 100 09/24/24 05:49 09/24/24 05:49 09/24/24 05:50 Temperature Temperature Source Pulse Rate 131 H 125 H Respiratory Rate Blood Pressure 84/44 L BP Systolic 84 BP Diastolic 44 Pulse Ox 09/24/24 05:50 09/24/24 05:50 09/24/24 05:52 Temperature Temperature Source Pulse Rate 128 H Respiratory Rate 18 Blood Pressure BP Systolic BP Diastolic Pulse Ox 98 09/24/24 05:52 09/24/24 05:54 09/24/24 05:54 Temperature Temperature Source Pulse Rate 120 H Respiratory Rate Blood Pressure 103/58 L BP Systolic 103 BP Diastolic 58 Pulse Ox 82 09/24/24 05:55 09/24/24 05:55 09/24/24 05:55 Temperature Temperature Source Temporal Pulse Rate 123 H Respiratory Rate 18 Blood Pressure BP Systolic BP Diastolic Pulse Ox 09/24/24 05:55 09/24/24 05:55 09/24/24 05:55 Temperature 97.9 F Temperature Source Pulse Rate Respiratory Rate 18 Blood Pressure BP Systolic BP Diastolic Pulse Ox 100 09/24/24 05:57 09/24/24 05:57 09/24/24 06:00 Temperature Temperature Source Pulse Rate 115 H 121 H Respiratory Rate Blood Pressure 107/61 BP Systolic 107 BP Diastolic 61 Pulse Ox 09/24/24 06:00 09/24/24 06:00 09/24/24 06:01 Temperature Temperature Source Pulse Rate Respiratory Rate 18 Blood Pressure 113/59 L BP Systolic 113 BP Diastolic 59 Pulse Ox 100 09/24/24 06:01 09/24/24 06:05 09/24/24 06:05 Temperature Temperature Source Pulse Rate 118 H 113 H Respiratory Rate Blood Pressure BP Systolic BP Diastolic Pulse Ox 99 09/24/24 06:05 09/24/24 06:07 09/24/24 06:07 Temperature Temperature Source Pulse Rate 110 H Respiratory Rate 16 Blood Pressure 109/57 L BP Systolic 109 BP Diastolic 57 Pulse Ox 09/24/24 06:10 09/24/24 06:10 09/24/24 06:10 Temperature Temperature Source Pulse Rate 116 H Respiratory Rate 18 Blood Pressure BP Systolic BP Diastolic Pulse Ox 100 09/24/24 06:12 09/24/24 06:12 09/24/24 06:17 Temperature Temperature Source Temporal Pulse Rate 129 H Respiratory Rate Blood Pressure 110/58 L BP Systolic 110 BP Diastolic 58 Pulse Ox 09/24/24 06:17 09/24/24 07:23 09/24/24 07:23 Temperature 97.4 F L Temperature Source Pulse Rate 139 H Respiratory Rate Blood Pressure 202/139 H BP Systolic 202 BP Diastolic 139 Pulse Ox 09/24/24 07:23 09/24/24 07:24 09/24/24 07:24 Temperature Temperature Source Pulse Rate 123 H Respiratory Rate Blood Pressure 106/54 L BP Systolic 106 BP Diastolic 54 Pulse Ox 99 09/24/24 07:24 09/24/24 07:24 09/24/24 07:24 Temperature 97.7 F L Temperature Source Temporal Pulse Rate Respiratory Rate 18 Blood Pressure BP Systolic BP Diastolic Pulse Ox 09/24/24 07:28 09/24/24 07:28 09/24/24 07:33 Temperature Temperature Source Pulse Rate 128 H 129 H Respiratory Rate Blood Pressure BP Systolic BP Diastolic Pulse Ox 99 09/24/24 07:33 09/24/24 07:36 09/24/24 07:36 Temperature Temperature Source Pulse Rate 117 H Respiratory Rate Blood Pressure 105/61 BP Systolic 105 BP Diastolic 61 Pulse Ox 99 09/24/24 07:38 09/24/24 07:38 09/24/24 07:43 Temperature Temperature Source Pulse Rate 119 H 128 H Respiratory Rate Blood Pressure BP Systolic BP Diastolic Pulse Ox 99 09/24/24 07:43 09/24/24 07:48 09/24/24 07:48 Temperature Temperature Source Pulse Rate 119 H Respiratory Rate Blood Pressure BP Systolic BP Diastolic Pulse Ox 99 99 09/24/24 07:51 09/24/24 07:51 09/24/24 07:52 Temperature Temperature Source Pulse Rate 133 H Respiratory Rate 18 Blood Pressure 112/68 BP Systolic 112 BP Diastolic 68 Pulse Ox 09/24/24 07:53 09/24/24 07:53 09/24/24 07:58 Temperature Temperature Source Pulse Rate 133 H 108 H Respiratory Rate Blood Pressure BP Systolic BP Diastolic Pulse Ox 99 09/24/24 07:58 09/24/24 08:03 09/24/24 08:03 Temperature Temperature Source Pulse Rate 128 H Respiratory Rate Blood Pressure BP Systolic BP Diastolic Pulse Ox 99 99 Weight Weight: 161 lb Body Mass Index (BMI) 26.8 Physical Exam Const alert, oriented x3 and healthy appearing Constitutional Narrative: uncomfortable with contractions HEENT normocephalic and moist oral mucous membranes Head and Scalp: atraumatic Neck full ROM, no lymphadenopathy, supple and thyroid normal General: trachea midline Thyroid: thyroid normal Lymph Lymphatic: no lymphadenopathy noted Chest inspection of chest normal Resp normal respiratory effort Cardio regular rate GI soft to palpation and non-tender GI Narrative: gravid Inspection: gravid external exam normal Bimanual Exam - Vag & Uterus: uterus non-tender Manual OB Exam: estimated gestational size appropriate, presentation cephalic, dilated, effaced and station Extremity normal to inspection General Extremity: Negative for edema Skin no rashes or lesions noted Neuro deep tendon reflexes 2+ bilaterally Motor Exam: strength 5/5 throughout and clonus absent Psych mental status grossly normal Labs Labs Labs: Blood Type A POSITIVE Antibody Screen NEGATIVE Hct 33.9 % (37-47) L Hgb 11.0 g/dL (12.0-15.0) L Obstetrics Ultrasound Syphilis Total Ab Nonreactive (Nonreactive) VZV IgG Antibody Rubella IgG Antibody Reactive (Nonreactive) Hep Bs Antigen Non-Reactive (Nonreactive) Hepatitis C Antibody Non-Reactive (Nonreactive) Chlamydia DNA (BRUCE) Negative (Negative) N.gonorrhoeae DNA (BRUCE) Negative (Negative) HIV 1&2 Antibody Nonreactive (Nonreactive) Glucose 1 Hr 50 gm 68 mg/dL (70-140) L Assessment & Plan (1) GBS (group B streptococcus) UTI complicating : COMMENT: treat in labor (2) Uterine size date discrepancy: COMMENT: 37w: EFW 50%, AC 64%. Nl (3) History of anxiety: COMMENT: stopped lexapro in November,. Stable (4) History of recurrent UTI (urinary tract infection): COMMENT: last UTI was December (5) Supervision of high-risk : QUALIFIERS: Trimester: third trimester Qualified Code(s): O09.93 - Supervision of high risk , unspecified, third trimester COMMENT: PRR, , PANKAJ 10/01/24, surprise PC Melanie, Sameer Joel (6) : QUALIFIERS: Weeks of gestation: 38 weeks Qualified Code(s): Z3A.38 - 38 weeks gestation of COMMENT: NIPT low risk, carrier and afp negative. (7) Active labor at term: PLAN: Plan Patient presents IAL, plan expectant management for , pitocin/AROM PRN if needed. Pain management: plans epidural. GBS positive plan IV PCN. Management of any complications: none I have reviewed the [facility] and made any clinically relevant updates.
--- NOTE | 2024-09-24 08:09 | OB.VAGDELI_ITS ---
Assessment & Plan (1) Active labor at term: (2) GBS (group B streptococcus) UTI complicating : COMMENT: treat in labor (3) Uterine size date discrepancy: COMMENT: 37w: EFW 50%, AC 64%. Nl (4) History of anxiety: COMMENT: stopped lexapro in November,. Stable (5) History of recurrent UTI (urinary tract infection): COMMENT: last UTI was December (6) Supervision of high-risk : QUALIFIERS: Trimester: third trimester Qualified Code(s): O09.93 - Supervision of high risk , unspecified, third trimester COMMENT: PRR, , PANKAJ 10/01/24, surprise PC Melanie, Sameer Joel (7) : QUALIFIERS: Weeks of gestation: 38 weeks Qualified Code(s): Z3A.38 - 38 weeks gestation of COMMENT: NIPT low risk, carrier and afp negative. (8) Vaginal delivery: COMMENT: sm ial rolando tolentino Maternal Data Information PANKAJ Calculator Estimated Delivery Date Method Current WG Current Estimate 10/01/24 LMP (Certain) 39w 0d Vaginal Delivery Maternal Presentation Maternal Presentation: see assessment and plan Vaginal Delivery Information Procedure Performed: Spontaneous Vaginal Delivery Surgeon/Practitioner: Rachele Hummel Pre-Procedure Diagnosis: see assessment and plan Post-Procedure Diagnosis: same Type of anesthesia: Epidural Findings Description of procedure: Patient began pushing and delivered the head in the JULIA presentation. The head was delivered atraumatically and a loose nuchal cord ?1 was identified and easily reduced over the 's head. The anterior and posterior shoulders delivered without complication followed by the rest of the and the infant was placed on the maternal abdomen. Delayed cord clamping was employed for approximately 60 seconds. Cord was clamped and cut and gentle traction was applied to the cord and the placenta delivered spontaneously immediately following it was noted to be intact with three-vessel cord. The perineum and vagina were inspected and noted to have no laceration. EBL was 100 cc. Patient and infant tolerated delivery well. Presentation: Vertex Placental Delivery Description: Spontaneous Specimen collected: Yes Description of specimen(s) removed: placenta Timber Management Professor telephone interviewer: No Post Vaginal Deli Medications given after delivery: Other (pitocin) Complication Complications: No Multi Select Codes Urinary/Genital Urinary/Genital CPT Codes: 05451 Vaginal Delivery [facility]
--- NOTE | 2024-09-24 08:10 | DCINST_ITS ---
Discharge Instructions DC O2, CPAP, BIPAP needs Home O2 Discharge instructions: No Dressing / Incision Discharge Activity: Return to Normal Activity, May Not Drive (while taking narcotic pain medications.) and May Shower May resume sexual activity in: 4-6 weeks Dressing / Incision Call your doctor if your incision/area has: Continuous Slow Oozing, Sudden Increased Bleeding, Increased Pain/ Swelling, Increased Redness and Foul Smelling Discharge Follow Up Care Please Follow Up With: Rachele Hummel MD When: Call [phone] to make an appointment with your doctor in 6 weeks. If you had elevated blood pressure or 4th degree laceration, you will need to be seen in 2 weeks. Test Results: Test results from this visit will be discussed in further detail at your follow- up appointment, if applicable. Discharge Plan Admission Admit Date/Time: 09/24/24 01:35 Attending Provider: Rachele Hummel Primary Care Provider: ANIL ONEAL Discharge Orders/Prescriptions Prescriptions: No Action PNV no.[id number] 400 mcg-35 mg- 25 mg-5 mg tablet,chewable PO (DME) breast pump Device See Rx Instructions .Route Qty: 1 0RF Rx Instructions: As directed Referrals / Follow Up: ANIL ONEAL DO [Primary Care Provider] -
[2024-09-24] MEDS: Senna/Docusate Sodium 1 Tablet PO (20:26)
[2024-09-25 04:14] VITALS: BP 122/70; PULSE 86; RESP 16; TEMP 36.1; O2SAT 99
[2024-09-25 08:40] VITALS: BP 114/71; PULSE 77; RESP 16; TEMP 36.6; O2SAT 100
--- NOTE | 2024-09-25 09:20 | PN.OBGYN_ITS ---
Subjective Subjective Patient doing well without complaints. Tolerating PO. Ambulating and voiding without difficulty. Feeding well. Denies chest pain, shortness of breath, calf pain/swelling, fevers, chills, lightheadedness. Objective Data Objective Data Vital Signs: Vital Signs Temp Pulse Resp BP Pulse Ox O2 Del Method 98 F 77 16 114/71 100 Room Air 09/25/24 08:40 09/25/24 08:40 09/25/24 08:40 09/25/24 08:40 09/25/24 08:40 09/25/24 08:40 Oxygen Delivery Method Room Air Weight: 161 lb Body Mass Index (BMI) 26.8 Intake & Output: Intake and Output for Last 24 Hours 09/23/24 09/24/24 09/25/24 23:59 23:59 23:59 Intake Total 1794.80 / 1794.80 Output Total 1100 / 1100 Balance 694.80 / 694.80 Lab / Micro Data Attestation: I reviewed the patient's lab results. 09/24/24 02:00 ROS Constitutional Constitutional: Reports systems reviewed and no addt'l complaints, except as documented; Denies anorexia or headache(s) Cardiovascular Cardiovascular: Reports systems reviewed and no addt'l complaints, except as documented; Denies dizziness, dyspnea, nausea or tachypnea Respiratory/Chest Respiratory/Chest: Reports systems reviewed and no addt'l complaints, except as documented; Denies cough, dyspnea, shortness of breath at rest or tachypnea Gastrointestinal Gastrointestinal: Reports systems reviewed and no addt'l complaints, except as documented; Denies abdominal pain, constipation or nausea Genitourinary Genitourinary: Reports systems reviewed and no addt'l complaints, except as documented; Denies burning urination, difficulty urinating, dysuria, urinary frequency or urinary incontinence Musculoskeletal Musculoskeletal: Reports systems reviewed and no addt'l complaints, except as documented Integumentary Integumentary: Reports systems reviewed and no addt'l complaints, except as documented Neurologic Neurologic: Reports systems reviewed and no addt'l complaints, except as documented; Denies abnormal speech, dizziness or headache(s) Psychiatric Psychiatric: Reports systems reviewed and no addt'l complaints, except as documented Endocrine Endocrinology: Reports systems reviewed and no addt'l complaints, except as documented Hematologic/Lymphatic Hematologic/Lymphatic: Reports systems reviewed and no addt'l complaints, except as documented Physical Exam Const alert, oriented x3 and no apparent distress Neck full ROM Resp normal respiratory effort, normal air movement and no retractions Effort and Inspection: able to speak in complete sentences and symmetric chest movement GI soft to palpation Bladder / Kidney Exam: bladder normal to palpation Uterus Palpation: uterus fundus firm Extremity normal to inspection and full ROM Psych mental status grossly normal, thought process normal and cooperative Assessment & Plan (1) Vaginal delivery: COMMENT: sm ial boy ludavid PLAN: s/p PPD # 1 1. routine post delivery care 2. breast feeding- support given 3. rh positive 4. rubella immune 5. discharge home (2) Active labor at term: (3) Vaginal discharge during : COMMENT: ROM neg (4) GBS (group B streptococcus) UTI complicating : COMMENT: treat in labor (5) Uterine size date discrepancy: COMMENT: 37w: EFW 50%, AC 64%. Nl (6) History of anxiety: COMMENT: stopped lexapro in November,. Stable (7) History of recurrent UTI (urinary tract infection): COMMENT: last UTI was December (8) Supervision of high-risk : QUALIFIERS: Trimester: third trimester Qualified Code(s): O09.93 - Supervision of high risk , unspecified, third trimester COMMENT: PRR, , PANKAJ 10/01/24, surprise PC Melanie, Sameer Joel (9) : QUALIFIERS: Weeks of gestation: 38 weeks Qualified Code(s): Z 3A.38 - 38 weeks gestation of COMMENT: NIPT low risk, carrier and afp negative. Charges/Coding Multi Select Codes Urinary/Genital Urinary/Genital CPT Codes: No Charge
--- NOTE | 2024-09-25 12:05 | CASEMGMT ---
Social Work Assessment Labor and Delivery Unit Patient Address: [place] [address] Phone number: [phone] Date of Referral: 09/24/24 Time of Referral: 08:47 Referred By: Rachele Hummel Date of Intervention: 09/25/24 Time of Intervention: 12:07 Reason for Referral: History obtained from: Medical records, mother of baby (MOB) and father of baby (FOB).? Household composition: MOB, FOB (Joel, age 28) and their 3 children; 6-year-old daughter. Melanie, 3-year-old son Sameer and son, Camilo, born on 09/24/24. ? Patient's parent/guardian status: MOB and FOB have been together for 8 years and for 7 years. ???MOB denied any previous or current issues of domestic violence and described a positive relationship with the FOB. MOB and FOB both denied having any other children. Medical History: : 3, Para, now 3. MOB received care ([facility]) through [facility] beginning at 7 weeks and 6 days.? Visits were observed to be routine. Apgars: 8 and 8. Weight: 7 lbs, 5oz. Brass Molder Helper: Dr. Lore Pop through [facility]. Educational Status: MOB and FOB denied any issues with reading, writing or learning comprehension. MOB has a bachelor?s degree in social work and the FOB has had some college. Financial Status: MOB and FOB reported that their income is sufficient to meet the needs of their family at this time. MOB is currently employed full-time with [employer]. MOB works remotely. FOB is currently employed full-time as a clinician oncology and wafer polishing worker. Infant Supplies: MOB and FOB reported they have the supplies they need for baby at this time including but not limited to: Car seat, bassinet, pack-n-play, crib, diapers, bottles, breast pump and clothing. Childcare/Caregiver(s): MOB reported that due to her working from home and the FOB only working 9 days out of the month, they will provide care for between the two of them. MOB also reported they gave a engineering librarian that can utilize when/as needed. MOB is on maternity leave through 10/21/25. FOB is on leave until November of 2024. Transportation: Both MOB and FOB are licensed drivers and have a reliable vehicle to get baby to and from all medical appointments. MOB and FOB denied any issues/barriers to transportation at this time. Programs/Agencies Involved: Denied. Children Services/Legal Issues: MOB and FOB denied any history of Children Services involvement. MOB and FOB denied any previous or current legal involvement. Behavioral Health Issues:? Mental Health History: MOB has a history of anxiety but is not on any medication at this time. MOB reported her anxiety is effectively managed at this time. FOB denied any mental health history. ?Substance Use History:?? MOB and FOB denied any previous or current alcohol abuse.? Family History:? OMAR?s father is an alcoholic however has been sober for 3 years. ETIENNE reported his mother in 2014 due to alcohol related issues. ?Drug Screens: None obtained for the MOB or for the during this admission. Family/Social Stressors:?? Denied. Support Systems: ?MOB identified her biggest support as the FOB, and ?s maternal grandmother (MGM). Depression/Shaken Baby/Safe Sleeping: Holter Scanning Technician provided verbal and written education on PPD, risk factors for increased PPD, Safe Sleeping and Shaken Baby.? MOB and FOB both verbalized an understanding.??? ASSESSMENT: MOB and FOB provided consent to social work visit. Upon arrival, the MOB was sitting upright in the hospital bed and the FOB was holding . MOB and FOB were both verbally engaged and cooperative. MOB and FOB appeared to be attached and bonded to . During the time the FOB was holding , the FOB was observed to be very gentle and attentive as was the MOB when the FOB left the room and handed to the MOB. ?At the end of the assessment, Holter Scanning Technician requested to speak with the MOB alone, which she and the FOB were both agreeable to. OMAR reported feeling safe in her home and denied any previous or current domestic violence, unmanaged mental health issues either with herself or with the FOB and also denied any concerns with drug or alcohol abuse either with herself or with the FOB as well as any unmanaged mental health concerns. Safe Plan of Care for infant related to substance use: Not needed at this time. PLAN: For MOB and baby to be discharged when medically ready. No other services requested or indicated. Mary Tamez, INFORMATION TECHNOLOGY COORDINATOR, WIRE ANNEALER
== END 2024-09-25 12:40 | disposition home or self-care (01) | DRG 807 ==
PROVIDERS: Admitting Provider Obstetrics & Gynecology; PCP Student in an Organized Health Care Education/Training Program; Visit Provider Obstetrics & Gynecology
DX: O26.843 Uterine size-date discrepancy, third trimester (principal); Z37.0 Single live birth; O69.81X0 Labor and delivery complicated by cord around neck, without compression, not applicable or unspecified; O99.824 Streptococcus B carrier state complicating childbirth; Z3A.38 38 weeks gestation of pregnancy
CPT/HCPCS: 59025; 59050; 85025; 86780; 86850; 86900; 86901; 99221; G0378